=== PATIENT | male | born 1960 | race Caucasian/White ===

== ENCOUNTER → 2017-11-27 14:48 | Outpatient (CLI) | payer MEDICAID, SELFPAY ==
--- NOTE | 2017-11-27 14:53 | MR_ITS ---
MR shoulder RT wo con MRI right shoulder Ordering Physician: Brody Aguilera MD Patient Age: 57 years: Male HISTORY: ITS.REASON: INJURY OF RT SHOULDER Right shoulder pain 6 weeks limited range of motion. TECHNIQUE: Multiplanar multisequence imaging 1.5T MR COMPARISON :Plain films right shoulder 10/23/2017 FINDINGS Full-thickness infraspinatus tendon tear on, with over 12 mm mm tendon retraction. Fluid passes through rotator cuff tear defect into the subdeltoid subacromial bursa... Edema extends into the infraspinatus muscle , , I would note slight increased bone signal throughout cap of the greater tuberosity, along with some hypertrophic changes here.. Likely reflects mild reactive bone changes or degenerative signal change. This likely at or near the avulsed insertion of the infraspinatus tendon on the greater tuberosity Low signal irregularities & calcifications are along inferior aspect of the acromion & & distal clavicle-likely reflect combination of hypertrophic changes, dystrophic calcification & calcific tendinitis type features.-throughout this subacromial region.. The subacromial space remains generous & well-maintained. AC joint hypertrophy evident, mild encroaches upon the supraspinatus complex as it passes beneath this area through the the medial outlet.. Associated mild tendinopathy most evident at the anterior aspect of the supraspinatus towards anterior cerebral through this region.. Coronal image 13.q Subscapularis tendon. Mild tendinopathy at superior aspect of subscapularis tendon best seen on sagittal image 11. Biceps tendon I believe is abnormal.. Evident at superior aspect the bicipital groove were becomes mildly enlarged with increased interstitial signal. Tendinopathy with possible interstitial tear here. Sagittal image 5,-6-7 IMPRESSION: 1 Infraspinatus tendon tear with mild/moderate retraction. Edema extends throughout the infraspinatus muscle question some mild bone edema at the cap of the greater tuberosity as well. . 2.. Fluid passes through full-thickness infraspinatus rotator cuff defect, into the subdeltoid subacromial bursa. Minimal joint effusion noted 3. Biceps tendinopathy. Possible interstitial tear just superior the bicipital groove 4. Mild Subscapularis tendinopathy.\ 5. Mild/moderate AC joint hypertrophy which encroaches upon the supraspinatus as it passes beneath this area & through medial outlet. Mild supraspinatus tendinopathy anteriorly in this region 6... Calcific tendinitis & along with Osseous irregularities,, minimal hypertrophic bone noted along the inferior aspect acromion and distal clavicle..
== END ==
PROVIDERS: Family Provider Family Medicine; PCP Family Medicine; Visit Provider Family Medicine
DX: S49.91XD Unspecified injury of right shoulder and upper arm, subsequent encounter (principal)
CPT/HCPCS: 73221

== ENCOUNTER → 2017-12-29 07:14 | Outpatient (CLI) | payer MEDICAID, SELFPAY ==
--- NOTE | 2017-12-29 07:36 | XR_ITS ---
XR chest 2V HISTORY: ITS.REASON: HTN ORDERING PHYSICIAN: Torres Armenta PATIENT AGE: 57 years COMPARISON: 09/11/2016 FINDINGS: The cardiomediastinal silhouette and pulmonary vascularity are within normal limits. The lungs are clear without infiltrates, suspicious nodules, or pleural effusions. There has been a prior left shoulder replacement No acute bony abnormalities. IMPRESSION: Negative chest, no acute finding
[2017-12-29 08:02] LABS: Basophils # 0.1 K/mm3 (0-0.2); Basophils % 0.7 % (0.1-2.0); Eosinophils # 0.4 K/mm3 (0.0-0.4); Eosinophils % 4.2 % (0.1-12.0); Hematocrit 47.8 % (42.0-52.0); Hemoglobin 15.7 g/dL (14.1-18.0); Lymphocytes # 2.5 K/mm3 (0.7-4.5); Lymphocytes % 28.8 K/mm3 (10-50); Mean Corpuscular HGB Conc 32.9 g/dL (31.8-35.4); Mean Corpuscular Hemoglobin 27.4 pg (27.0-31.2); Mean Corpuscular Volume 83.3 fl (80-94); Mean Platelet Volume 6.7 fl (7.4-10.4); Monocytes # 0.6 K/mm3 (0.1-1.0); Monocytes % 6.8 % (1.7-9.3); Neutrophils # 5.1 K/mm3 (1.8-7.8); Neutrophils % 59.5 % (37.0-80.0); Platelet Count 299 K/mm3 (142-424); Red Blood Count 5.74 M/mm3 (4.60-6.20); Red Cell Distribution Width 12.7 % (11.5-17.5); White Blood Count 8.5 K/mm3 (4.8-10.8)
[2017-12-29 09:51] LABS: Alanine Aminotransferase 61 U/L (12-78); Albumin Level 3.8 gm/dL (3.4-5.0); Albumin/Globulin Ratio 1.1 (1.1-1.8); Alkaline Phosphatase 135 U/L (46-116); Anion Gap 11.9 mEq/L (5-15); Aspartate Amino Transferase 26 U/L (15-37); Bilirubin,Total 0.4 mg/dL (0.2-1.0); Blood Urea Nitrogen 19 mg/dL (7-18); Calcium 9.1 mg/dL (8.5-10.1); Carbon Dioxide 31 mmol/L (21.0-32.0); Chloride 107 mmol/L (98-107); Creatinine,Serum 0.88 mg/dL (0.70-1.30); Estimated Glomerular Filt Rate 89 ml/min (>60); GFR (African American) 108 ML/MIN (>60); Globulin 3.4 gm/dl (1.3-3.2); Glucose 101 mg/dL (74-106); Potassium 4.9 mmoL/L (3.5-5.1); Sodium 145 mmol/L (136-145); Total Protein,Serum 7.2 gm/dL (6.4-8.2)
== END ==
PROVIDERS: PCP Family Medicine; Visit Provider Orthopaedic Surgery
DX: S49.91XD Unspecified injury of right shoulder and upper arm, subsequent encounter (principal); Z01.812 Encounter for preprocedural laboratory examination
CPT/HCPCS: 36415; 71046; 80053; 85025; 93005

== ENCOUNTER 2018-04-04 13:00 | Outpatient (RCR) | payer MEDICAID, SELFPAY | END 2018-04-26 08:51 | disposition home or self-care (01) | LOC: PT 13:00 | PROVIDERS: Family Provider Family Medicine; PCP Family Medicine; Visit Provider Orthopaedic Surgery | DX: M75.122 Complete rotator cuff tear or rupture of left shoulder, not specified as traumatic (principal) | CPT/HCPCS: 97110; 97140 ==

== ENCOUNTER 2019-02-12 10:00 | Outpatient (RCR) | payer MEDICAID, SELFPAY ==
--- NOTE | 2019-01-17 11:24 | HMH.PTOPEV ---
PT Outpatient Evaluation Rehab PT Outpatient Evaluation Start: 01/17/19 10:55 Freq: Status: Active Protocol: Document 01/17/19 10:55 SANTOSH (Rec: 01/17/19 11:23 RIPSERJORDAN [id number]) Electronically Signed By Jatinder Head, TANK 01/17/19 10:55 Outpatient Therapy Subjective History Subjective History Pt. is a 58 year old male who presents to outpatient PT with complaints of acute cervical/thoracic and BUE pain since 12/23/18 after slipping, falling, and hitting the right side of his head/neck on his tractor's back tire. Pt. reports sharp shooting pain down to his RUE wrist and pain to mid humerus of his LUE. Pt. reports his pain flips on and off like a light switch, but gets worse when he slouches in his bar chair. Recent diagnostic imaging positive for multilevel cervical spondylosis, reversal of cervical lordosis, and no acute fracture(cervical scan), and an old fracture versus nuchal ligament calcification at C7(thoracic scan). Pt. denies having recent injections. PMH includes B carpal tunnel, B shoulder RCRs , and a reverse total shoulder replacment L. See chart for current medication list. Chief Complaint Pain Stiff Symptom Type Sharp Shooting Symptoms Relieved By Heat Ice OTC Meds Prescription Meds Symptoms Aggravated By Sitting Bending/Stooping Twisting Prior Functional Limitations None Current Functional Limitations Housework Dressing Desk Work/Reading Driving Sleeping Recreation Activity Bending/Stooping Symptom Description
== END 2019-02-19 11:38 | disposition home or self-care (01) ==
LOC: PT 10:00
PROVIDERS: Visit Provider Family Medicine
DX: M54.2 Cervicalgia (principal)
CPT/HCPCS: 97010; 97012; 97014; 97110; 97140; 97163; G0283

== ENCOUNTER → 2019-02-26 16:04 | Outpatient (CLI) | payer MEDICAID, SELFPAY ==
--- NOTE | 2019-02-26 16:07 | XR_ITS ---
XR chest 2V HISTORY: ITS.REASON: PERSISTENT COUGH ORDERING PHYSICIAN: Brody Aguilera MD PATIENT AGE: 58 years COMPARISON: 12/29/2017 FINDINGS: The cardiomediastinal silhouette and pulmonary vascularity are within normal limits. The lungs are clear without infiltrates, suspicious nodules, or pleural effusions. No acute bony abnormalities. There is an old left sixth rib fracture. Left shoulder prosthesis is present IMPRESSION: No acute finding
== END ==
PROVIDERS: PCP Family Medicine; Visit Provider Family Medicine
DX: R05 Cough (principal)
CPT/HCPCS: 71046

== ENCOUNTER → 2019-10-25 07:31 | Outpatient (CLI) | payer MEDICAID, SELFPAY ==
[2019-10-25 13:49] LABS: Chol/HDL Ratio 7.9 (1-3.5); Cholesterol 206 mg/dL (140-200); HDL Cholesterol 26 mg/dL (27-67); LDL Cholesterol 116 mg/dL (0-130); Triglycerides 318 mg/dL (30-200); VLDL Cholesterol 64 mg/dL (0-40)
[2019-10-28 08:17] LABS: Alanine Aminotransferase 39 U/L (12-78); Albumin Level 4.1 gm/dL (3.4-5.0); Alkaline Phosphatase 77 U/L (46-116); Aspartate Amino Transferase 34 U/L (15-37); Bilirubin,Direct 0.1 mg/dL (0.0-0.2); Bilirubin,Indirect 0.3 mg/dL (0.0-0.9); Bilirubin,Total 0.4 mg/dL (0.2-1.0)
== END ==
PROVIDERS: Urology; Visit Provider Nurse Practitioner Family
DX: E78.5 Hyperlipidemia, unspecified (principal); I11.9 Hypertensive heart disease without heart failure; E78.1 Pure hyperglyceridemia
CPT/HCPCS: 36415; 80061; 80076

== ENCOUNTER → 2020-02-10 09:37 | Outpatient (CLI) | payer MEDICARE, OTHER, SELFPAY ==
[2020-02-10 14:14] LABS: Creatine Kinase 685 U/L (55-170)
== END ==
PROVIDERS: Visit Provider Internal Medicine
DX: I11.9 Hypertensive heart disease without heart failure (principal); E78.5 Hyperlipidemia, unspecified
CPT/HCPCS: 36415; 82550

== ENCOUNTER → 2020-02-19 08:25 | Outpatient (CLI) | payer MEDICARE, SELFPAY ==
[2020-02-19 10:33] LABS: Alanine Aminotransferase 43 U/L (12-78); Albumin Level 4.1 g/dl (3.5-5.0); Alkaline Phosphatase 66 U/L (38-126); Aspartate Amino Transferase 39 U/L (17-59); Bilirubin,Direct 0.2 mg/dl (0.0-0.4); Bilirubin,Indirect 0.2 mg/dL (0.0-0.9); Bilirubin,Total 0.4 mg/dl (0.2-1.3); Bilirubin,Unconjugated 0.3 mg/dL (0.0-1.1); Chol/HDL Ratio 8.3 (1-3.5); Cholesterol 223 mg/dl (140-200); HDL Cholesterol 27 mg/dl (40-60); Total Protein,Serum 6.7 g/dl (6.3-8.2); Triglycerides 367 mg/dl (30-150); VLDL Cholesterol 73 mg/dL (0-40)
[2020-02-19 10:34] LABS: Creatine Kinase 594 U/L (55-170)
[2020-02-19 10:44] LABS: Direct LDL Cholesterol 105.53 mg/dL (100-129)
== END ==
PROVIDERS: Internal Medicine; Visit Provider Physician Assistant
DX: E78.5 Hyperlipidemia, unspecified (principal); I11.9 Hypertensive heart disease without heart failure
CPT/HCPCS: 36415; 80061; 80076; 82550

== ENCOUNTER → 2020-03-10 08:03 | Outpatient (CLI) | payer MEDICARE, SELFPAY ==
[2020-03-10 10:10] LABS: Creatine Kinase 640 U/L (55-170)
== END ==
PROVIDERS: Visit Provider Physician Assistant
DX: M62.82 Rhabdomyolysis (principal)
CPT/HCPCS: 36415; 82550

== ENCOUNTER → 2020-03-16 12:05 | Outpatient (CLI) | payer MEDICARE, SELFPAY ==
--- NOTE | 2020-03-16 12:11 | CA_ITS ---
APPROVED REPORT EXAM: Comprehensive 2D, Doppler, and color-flow Echocardiogram Highway Administrative Engineer: Tabitha Crain, RT(R) Ht: 5 ft 9 in Wt: 227lbs BSA: 2.18 BP: 113/79 mmHg Indications: ex smoker, edema, HTN, Hyperlipidemia, CAD, GERD 2D Dimensions LVOT 1.81 cm (M/F) 1.5-2.5 M-Mode Dimensions RVDd 1.85 cm (0.9-2.6) LVDd 4.34 cm (3.5-5.7) LVDs 3.10 cm (3.5-5.7) IVSd 1.09 cm (0.6-1.1) PWd 0.93 cm (0.6-1.1) EF (Teich) 55.40% FS 28.60% EDV (Teich) 84.90 mL ESV (Teich) 37.90 mL LV Diastology E/A Ratio 1.14 Mitral Valve MV A Velocity 76.00 (40-130 cm/s) Left Ventricle Left atrium is mildly enlarged, left ventricle is normal size, mild concentric left ventricular hypertrophy, visually estimated ejection fraction 30%, there is marked hypokinesis involving mid to distal septum, anterior, anterior apical and apical wall. Grade 1 diastolic dysfunction seen without tissue Doppler evidence of raise left atrial pressure. Right Ventricle Right atrium and right ventricle are normal size and contractility. Aortic Valve Aortic valve is minimally thickened and fibrosed, leaflet continue to display good mobility, there is no aortic stenosis or aortic insufficiency. Mitral Valve Mitral valve is minimally thickened, there is mild mitral regurgitation. Tricuspid Valve Tricuspid valve is grossly normal, there is mild tricuspid regurgitation, tricuspid regurgitation jet velocity is inadequate for calculation of the right ventricular systolic pressure. Pulmonic Valve Pulmonic valve is minimally fibrosed, there is no pulmonic stenosis, there is mild pulmonic insufficiency. Great Vessels Aortic root is normal size. Pericardium No significant pericardial effusion noted. Conclusion 1. Mildly enlarged left atrium, normal left ventricular size, mild concentric left ventricular hypertrophy, visually estimated ejection fraction 30%, with multiple segmental wall motion abnormality described above, grade 1 diastolic dysfunction seen without tissue Doppler evidence of raise left atrial pressure. 2. Mild mitral and tricuspid regurgitation. 3. No significant pericardial effusion noted. Electronically signed by : Dar Morales, 03/16/2020 20:48:21
--- NOTE | 2020-03-16 12:44 | XR_ITS ---
PROCEDURE: XR CHEST 2V CLINICAL HISTORY: dyspnea COMPARISON: CXR CHEST(2 VIEWS-NOT PORTABLE) from 09/11/2016 CXR2V XR chest 2V from 12/29/2017 CXR2V XR chest 2V from 02/26/2019 FINDINGS: The cardiomediastinal silhouette and pulmonary vascularity are within normal limits. The lungs are clear without infiltrates, suspicious nodules, or pleural effusions. Left shoulder prosthesis remains in place. IMPRESSION: No acute findings. Dictated by: Nakul Colvin MD 03/16/2020 13:48 Electronically signed by Nakul Colvin MD in [facility] 03/16/2020 13:48
[2020-03-16 12:47] LABS: Basophils # 0.1 K/mm3 (0-0.2); Basophils % 1.3 % (0.1-2.0); Eosinophils # 0.4 K/mm3 (0.0-0.4); Eosinophils % 4.6 % (0.1-12.0); Hematocrit 48.1 % (42.0-52.0); Hemoglobin 15.8 g/dL (14.1-18.0); Lymphocytes # 2.5 K/mm3 (0.7-4.5); Lymphocytes % 27.6 % (10-50); Mean Corpuscular Hemoglobin 28.3 pg (27.0-31.2); Mean Corpuscular Volume 85.8 fl (80-94); Mean Platelet Volume 7.2 fl (7.4-10.4); Monocytes # 0.6 K/mm3 (0.1-1.0); Monocytes % 6.8 % (1.7-9.3); Neutrophils # 5.4 K/mm3 (1.8-7.8); Neutrophils % 59.8 % (37.0-80.0); Platelet Count 281 K/mm3 (142-424); Red Cell Distribution Width 13.3 % (11.5-17.5)
[2020-03-16 13:42] LABS: C-Reactive Protein 3.9 mg/L (0-4)
[2020-03-16 13:48] LABS: NT Pro Brain Natriuretic Pep. 155 pg/mL (0-125)
[2020-03-16 14:05] LABS: Erythrocyte Sedimentation Rate 5 mm/hr (0-20)
[2020-03-16 14:09] LABS: Prostate Specific Ag Screen 1.1 ng/ml (0.0-4.0)
== END ==
PROVIDERS: PCP Family Medicine; Visit Provider Internal Medicine
DX: E78.5 Hyperlipidemia, unspecified (principal); I11.9 Hypertensive heart disease without heart failure; M62.82 Rhabdomyolysis; R06.00 Dyspnea, unspecified; Z12.5 Encounter for screening for malignant neoplasm of prostate
CPT/HCPCS: 36415; 71046; 83880; 85025; 85651; 86140; 93306; G0103

== ENCOUNTER → 2020-03-18 10:37 | Day surgery (SDC) | payer MEDICARE, SELFPAY ==
[2020-03-18] VITALS (12 sets, daily range): BP systolic 107–159; BP diastolic 63–93; PULSE 57–90; RESP 14–20; TEMP 36.8; O2SAT 90–97; BMI 34.4
--- NOTE | 2020-03-18 | IR_ITS ---
APPROVED REPORT Patient Location: Outpatient Tube Coater: WILL Jean RT (R) PROCEDURES Left heart catheterization Left ventriculogram Selective coronary angiogram INDICATION Abnormal high risk echocardiogram, New onset systolic just of heart failure ejection fraction 30%, Angina pectoris/chest pain Informed consent was obtained prior to the procedure. COMPLICATIONS none Estimated Blood Loss: less than 10 mls TECHNIQUE One percent lidocaine used to anesthetize the right anterior aspect of the wrist. The right radial artery was accessed via the Seldinger technique. A 6 Anguillan sheath was placed in the right radial artery. 2.5 mg of verapamil, 800 mcg of nitroglycerin, 1mg Lidocaine and 5000 U Heparin were given through the arterial sheath. The trap catheter and 6 Anguillan JL 3.5 guide catheter also used to perform left heart catheterization, left ventriculogram and selective coronary angiogram. At the end of the procedure the sheath was removed good hemostasis was achieved using Traclet band, patient was transferred to the postop holding area in stable condition. ANGIOGRAPHIC RESULTS The left main artery Normal The left anterior descending artery Has proximal 10% [id number] stenoses The circumflex artery Large dominant normal The right coronary artery Normal The RIOS ventriculogram reveals Normal 65% The left ventricular end-diastolic pressure 15 to 20 mmHg IMPRESSION Mild [id number] coronary disease in the proximal LAD Normal ejection fraction Mildly elevated LVEDP consistent with diastolic dysfunction False positive echocardiogram likely due to technical factors PLAN 1. Medical management 2. Treat diastolic dysfunction Electronically signed by : Sandoval Matias, 03/18/2020 11:59:28
[2020-03-18 10:45] LABS: Troponin I < 0.01 ng/ml (0.00-0.034)
== END ==
LOC: LAB 10:37 → CATHLAB 10:38
PROVIDERS: PCP Family Medicine; Visit Provider Internal Medicine
DX: E78.5 Hyperlipidemia, unspecified (principal); I11.0 Hypertensive heart disease with heart failure; M62.82 Rhabdomyolysis; R74.8 Abnormal levels of other serum enzymes; I50.21 Acute systolic (congestive) heart failure; I25.118 Atherosclerotic heart disease of native coronary artery with other forms of angina pectoris; Z88.0 Allergy status to penicillin; Z88.1 Allergy status to other antibiotic agents; Z88.2 Allergy status to sulfonamides; Z88.8 Allergy status to other drugs, medicaments and biological substances; Z87.891 Personal history of nicotine dependence
CPT/HCPCS: 36415; 84484; 93458; 99152; C1725; C1769; J1644; Q9967

== ENCOUNTER → 2020-05-18 14:36 | Outpatient (CLI) | payer MEDICARE, SELFPAY ==
[2020-05-20 13:30] LABS: Covid-19 Nasal PCR Sendout Lex Not Detected
== END ==
PROVIDERS: Visit Provider Family Medicine
DX: Z03.818 Encounter for observation for suspected exposure to other biological agents ruled out (principal); Z11.59 Encounter for screening for other viral diseases
CPT/HCPCS: U0004

== ENCOUNTER → 2020-12-25 09:25 | Outpatient (CLI) | payer MEDICARE, SELFPAY ==
[2020-12-25 13:48] LABS: Chloride 105 mmol/L (98-107); Potassium 4.8 mmoL/L (3.5-5.1); Sodium 140 mmol/L (136-145)
[2020-12-25 13:49] LABS: Basophils # 0.1 K/mm3 (0-0.2); Basophils % 1.4 % (0.1-2.0); Eosinophils # 0.3 K/mm3 (0.0-0.4); Eosinophils % 3.7 % (0.1-12.0); Lymphocytes # 2.4 K/mm3 (0.7-4.5); Lymphocytes % 27.7 % (10-50); Mean Corpuscular HGB Conc 32.6 g/dL (31.8-35.4); Mean Corpuscular Hemoglobin 27.9 pg (27.0-31.2); Mean Corpuscular Volume 85.4 fl (80-94); Mean Platelet Volume 7.4 fl (7.4-10.4); Monocytes # 0.4 K/mm3 (0.1-1.0); Monocytes % 4.8 % (1.7-9.3); Neutrophils # 5.3 K/mm3 (1.8-7.8); Neutrophils % 62.4 % (37.0-80.0); Platelet Count 223 K/mm3 (142-424); Red Blood Count 5.74 M/mm3 (4.60-6.20); Red Cell Distribution Width 13.4 % (11.5-17.5); White Blood Count 8.6 K/mm3 (4.8-10.8)
[2020-12-25 13:50] LABS: Blood Urea Nitrogen 25 mg/dl (9-20); Estimated Glomerular Filt Rate 86 ml/min (>60); GFR (African American) 104 ML/MIN (>60)
[2020-12-25 13:51] LABS: Alanine Aminotransferase 42 U/L (12-78); Albumin Level 4.5 g/dl (3.5-5.0); Albumin/Globulin Ratio 1.5 (1.1-1.8); Alkaline Phosphatase 87 U/L (38-126); Anion Gap 10.8 mEq/L (5-15); Aspartate Amino Transferase 38 U/L (17-59); Bilirubin,Total 0.6 mg/dl (0.2-1.3); Calcium 9.7 mg/dl (8.4-10.2); Carbon Dioxide 29 mmol/L (22.0-30.0); Chol/HDL Ratio 8.2 (1-3.5); Cholesterol 221 mg/dl (140-200); Creatine Kinase 503 U/L (55-170); Glucose 108 mg/dl (74-100); HDL Cholesterol 27 mg/dl (40-60); Total Protein,Serum 7.5 g/dl (6.3-8.2)
[2020-12-25 13:59] LABS: Triglycerides 422 mg/dl (30-150)
[2020-12-25 14:05] LABS: Direct LDL Cholesterol 88.86 mg/dL (100-129)
[2020-12-25 14:42] LABS: Thyroid Stimulating Hormone 0.42 uIU/mL (0.465-4.68)
[2020-12-25 16:15] LABS: Prostate Specific Ag Screen 0.7 ng/ml (0.0-4.0)
== END ==
PROVIDERS: Visit Provider Family Medicine
DX: I10 Essential (primary) hypertension (principal); E78.5 Hyperlipidemia, unspecified; R74.8 Abnormal levels of other serum enzymes; Z12.5 Encounter for screening for malignant neoplasm of prostate
CPT/HCPCS: 36415; 80053; 80061; 82550; 84443; 85025; G0103

== ENCOUNTER → 2020-12-28 09:13 | Outpatient (CLI) | payer MEDICARE, SELFPAY ==
[2020-12-28 14:04] LABS: Uric Acid 8.9 mg/dl (3.5-8.5)
[2020-12-28 15:10] LABS: Erythrocyte Sedimentation Rate 10 mm/hr (0-20)
[2020-12-29 19:34] LABS: RA Latex Turbid. 10.5 IU/mL (0.0-13.9)
[2020-12-30 22:07] LABS: Antinuclear Antibodies, IFA Positive (.)
== END ==
PROVIDERS: Visit Provider Family Medicine
DX: M79.10 Myalgia, unspecified site (principal); R74.8 Abnormal levels of other serum enzymes
CPT/HCPCS: 36415; 84550; 85651; 86038; 86140; 86431

== ENCOUNTER → 2021-01-01 16:33 | Outpatient (CLI) | payer MEDICARE, SELFPAY ==
--- NOTE | 2021-01-01 16:39 | XR_ITS ---
PROCEDURE: XR CERVICAL SPINE 5V CLINICAL INDICATION: CERVICAL RADICULOPATHY COMPARISON: CT SPCERVWO CT cervical spine wo con from 12/24/2018 FINDINGS: There is straightening of the normal curvature suggesting muscle spasm. C1 through C7 appear intact. There are small ossifications posterior to the spinous processes of C6 and C7 likely representing calcifications or ossifications within the nuchal ligament usually secondary to multiple repeated minor trauma. There is mild disc space narrowing at the C5-6 level and mild to moderate disc space narrowing at C6-7. Oblique films show prominent neural foraminal narrowing bilaterally at C6-7 level secondary to spurring of the uncinate joints. There is mild neural foraminal narrowing bilaterally at the C5-6 level for the same reason. The prevertebral soft tissues are normal and the odontoid is normal. There is a left total shoulder prosthesis noted. IMPRESSION: The moderate degenerate disc disease C5-6 and C6-7 with prominent neural foraminal narrowing bilaterally at C6-7 and mild neural foraminal narrowing bilaterally at C5-6 Dictated by: Dr. Jamarcus Polk MD 01/01/2021 17:08 Dr. Jamarcus Polk MD in [place] 01/01/2021 17:08
== END ==
PROVIDERS: PCP Family Medicine; Visit Provider Family Medicine
DX: M54.12 Radiculopathy, cervical region (principal)
CPT/HCPCS: 72050

== ENCOUNTER → 2021-01-11 12:46 | Outpatient (CLI) | payer MEDICARE, SELFPAY ==
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
== END ==
PROVIDERS: PCP Family Medicine; Visit Provider Family Medicine
DX: M47.22 Other spondylosis with radiculopathy, cervical region (principal)
CPT/HCPCS: 72141; 76376

== ENCOUNTER 2021-02-22 09:00 | Outpatient (RCR) | payer MEDICARE, SELFPAY | END 2021-03-22 13:47 | disposition home or self-care (01) | LOC: PT.CARL 09:00 | PROVIDERS: PCP Family Medicine; Visit Provider Neurological Surgery | DX: M54.2 Cervicalgia (principal) | CPT/HCPCS: 97110; 97163 ==

== ENCOUNTER 2021-03-20 13:28 | Emergency (ER) | payer MEDICARE, SELFPAY ==
[2021-03-20 13:29] VITALS: BP 170/93; PULSE 70; RESP 18; TEMP 36.7; O2SAT 98; BMI 31.0
--- NOTE | 2021-03-20 14:28 | CT_ITS ---
PROCEDURE INFORMATION: Exam: CT Abdomen And Pelvis With Contrast Exam date and time: 03/20/2021 2:28 PM Age: 60 years old Clinical indication: Abdominal pain; Patient HX: Generalized abd pain, n/v TECHNIQUE: Imaging protocol: Computed tomography of the abdomen and pelvis with contrast. Radiation optimization: All CT scans at this facility use at least one of these dose optimization techniques: automated exposure control; mA and/or kV adjustment per patient size (includes targeted exams where dose is matched to clinical indication); or iterative reconstruction. Contrast material: ISOVUE; Contrast volume: 75 ml; Contrast route: IV; COMPARISON: RUQ US RUQ-(ABD LTD)1ORGAN/QUAD/FU 04/02/2014 10:55 AM FINDINGS: Lungs: Atelectatic changes noted within the lung bases. Liver: Normal. No mass. Gallbladder and bile ducts: 6 mm calcification is present within the common bile duct. There has been a cholecystectomy. Pancreas: There is mild enlargement of the pancreas with peripancreatic fat stranding. No pancreatic ductal dilatation. Spleen: The spleen demonstrates punctate calcifications, consistent with remote granulomatous organism exposure. Adrenal glands: Normal. No mass. Kidneys and ureters: Normal. No hydronephrosis. Stomach and bowel: Unremarkable. No obstruction. No mucosal thickening. Appendix: No evidence of appendicitis. Intraperitoneal space: Normal. No significant fluid collection. Vasculature: The vasculature demonstrates diffuse mild atherosclerotic calcification. The vasculature demonstrates diffuse mild atherosclerotic calcification. Lymph nodes: Unremarkable. No enlarged lymph nodes. Urinary bladder: Unremarkable as visualized. Reproductive: The prostate demonstrates mild nonspecific enlargement. The seminal vesicles are normal. Bones/joints: Unremarkable. No acute fracture. Soft tissues: Bilateral fat filled inguinal hernias. IMPRESSION: 1. 6 mm calcification is present within the common bile duct. Follow-up MRCP may be of further benefit, as clinically warranted.The lumbar spine demonstrates mild degenerative changes at multiple levels. 2. There is mild enlargement of the pancreas with peripancreatic fat stranding. Findings may be consistent with early pancreatitis. Clinical correlation is needed. 3. Bilateral fat filled inguinal hernias.
[2021-03-20 14:36] LABS: Basophils # 0.1 K/mm3 (0-0.2); Basophils % 0.4 % (0.1-2.0); Eosinophils % 0.3 % (0.1-12.0); Hematocrit 48.5 % (42.0-52.0); Hemoglobin 16.1 g/dL (14.1-18.0); Lymphocytes # 1.2 K/mm3 (0.7-4.5); Lymphocytes % 8.2 % (10-50); Mean Corpuscular HGB Conc 33.2 g/dL (31.8-35.4); Mean Corpuscular Hemoglobin 28.6 pg (27.0-31.2); Mean Corpuscular Volume 86.1 fl (80-94); Mean Platelet Volume 7.3 fl (7.4-10.4); Monocytes # 0.4 K/mm3 (0.1-1.0); Monocytes % 2.5 % (1.7-9.3); Neutrophils # 13.2 K/mm3 (1.8-7.8); Neutrophils % 88.5 % (37.0-80.0); Platelet Count 305 K/mm3 (142-424); Red Blood Count 5.63 M/mm3 (4.60-6.20); Red Cell Distribution Width 14.3 % (11.5-17.5); White Blood Count 14.9 K/mm3 (4.8-10.8)
[2021-03-20 14:37] LABS: MANUAL DIFFERENTIAL MANUAL DIFFERENTIAL (MANUAL DIFF)
[2021-03-20 14:38] LABS: Chloride 101 mmol/L (98-107); Sodium 137 mmol/L (136-145)
[2021-03-20 14:39] VITALS: BP 132/81; PULSE 66; O2SAT 95
[2021-03-20 14:41] LABS: Alanine Aminotransferase 46 U/L (12-78); Alkaline Phosphatase 134 U/L (38-126); Aspartate Amino Transferase 47 U/L (17-59); Bilirubin,Total 0.7 mg/dl (0.2-1.3); Blood Urea Nitrogen 24 mg/dl (9-20); Calcium 9.3 mg/dl (8.4-10.2); Carbon Dioxide 26 mmol/L (22.0-30.0); Creatine Kinase 912 U/L (55-170); Creatinine Clearance Estimated 132 mL/min (50-200); Estimated Glomerular Filt Rate 99 ml/min (>60); GFR (African American) 119 ML/MIN (>60); Glucose 180 mg/dl (74-100)
[2021-03-20 14:42] LABS: Albumin Level 4.9 g/dl (3.5-5.0); Albumin/Globulin Ratio 1.7 (1.1-1.8); Globulin 2.9 g/dL (1.3-3.2); Total Protein,Serum 7.8 g/dl (6.3-8.2)
--- NOTE | 2021-03-20 14:49 | PC.NURSE ---
Pt to rad.
[2021-03-20 14:57] LABS: Lymphocytes % 8 % (10-50); Monocytes % 9 % (2-9); Neutrophils % 82 % (42-76); Platelet Estimate Normal; RBC Morphology Normal; Total Cells Counted 100
--- NOTE | 2021-03-20 15:10 | PC.NURSE ---
MD aware that pt is complaining of more pain.
--- NOTE | 2021-03-20 15:25 | PC.NURSE ---
Dr Ritter speaking with [facility].
--- NOTE | 2021-03-20 15:27 | HMH.EDGENADL ---
ED Disposition Clinical Impression: Common bile duct stone Acute pancreatitis Qualifiers: Pancreatitis type: biliary Acute pancreatitis complication: no infection or necrosis Qualified Code(s): K85.10 - Biliary acute pancreatitis without necrosis or infection Disposition: Xfer Short-Term Hosp Condition on Discharge: Fair Referrals: Brody Aguilera MD [Primary Care Provider] - Forms: Transfer Record - ED - Critical Care Critical Care Time: No Attestation: On 03/20/21, the high probability of a clinically significant, sudden or life threatening deterioration of the following system(s) required my full and direct attention, intervention and personal management. The time I documented below is in addition to time spent performing reported procedures but includes the following listed in this critical care notation. Medical Decision Making - Cheo Inquiry Pt receiving controlled substance: Yes Cheo was queried for this patient: Yes Risks and benefits of using a controlled substance: were not discussed with pt by me Vital Signs: 03/20/21 13:29 03/20/21 14:39 Temperature 98.1 F Temperature Source Oral Pulse Rate 66 Pulse Rate [Right] 70 Respiratory Rate 18 Blood Pressure 132/81 Blood Pressure [Right Arm] 170/93 H Blood Pressure Mean [Right Arm] 118 02 Sat by Pulse Oximetry 98 95 Oxygen Delivery Method Room Air - Lab Data Lab Results 03/20/21 13:17: WBC 14.9 H, RBC 5.63, Hgb 16.1, Hct 48.5, MCV 86.1, MCH 28.6, MCHC 33.2, RDW 14.3, Plt Count 305, MPV 7.3 L, Neut % (Auto) 88.5 H, Lymph % (Auto) 8.2 L, Faulk % (Auto) 2.5, Eos % (Auto) 0.3, Baso % (Auto) 0.4, Neut # (Auto) 13.2 H, Lymph # (Auto) 1.2, Faulk # (Auto) 0.4, Eos # (Auto) 0.0, Baso # (Auto) 0.1, Total Counted 100, Neutrophils % (Manual) 82 H, Band Neutrophils % 1.0, Lymphocytes % (Manual) 8 L, Monocytes % (Manual) 9, Platelet Estimate Normal, RBC Morphology Normal 03/20/21 13:17: Sodium 137, Potassium 5.0, Chloride 101, Carbon Dioxide 26, Anion Gap 15.0, BUN 24 H, Creatinine 0.80, Estimated Creat Clear 132, Estimated GFR 99, Est GFR ( Amer) 119, Glucose 180 H, Calcium 9.3, Total Bilirubin 0.7, AST 47, ALT 46, Alkaline Phosphatase 134 H, Total Creatine Kinase 912 H*, Total Protein 7.8, Albumin 4.9, Globulin 2.9, Albumin/Globulin Ratio 1.7, Amylase 7090 H*, Lipase 58963 H Result diagrams: 03/20/21 13:17 03/20/21 13:17 Orders (Tests/Meds): ED MEDICATIONS Generic Name Dose Route Start Last Admin Trade Name Freq PRN Reason Stop Dose Admin Lactated Ringer's 1,000 mls @ 500 mls/hr 03/20/21 17:00 03/20/21 17:28 Lactated Ringer's 1000 Ml Bag IV 03/20/21 18:59 500 mls/hr .Q2H MOUSTAPHA Administration Discontinued Medications Generic Name Dose Route Start Last Admin Trade Name Freq PRN Reason Stop Dose Admin Hydromorphone HCl 1 mg 03/20/21 15:34 03/20/21 15:37 Hydromorphone 2mg/Ml Syringe IV 03/20/21 15:35 1 mg ONCE ONE Administration Hydromorphone HCl 1 mg 03/20/21 17:28 03/20/21 17:29 Hydromorphone 2mg/Ml Syringe IV 03/20/21 17:29 1 mg ONCE ONE Administration Iopamidol 75 ml 03/20/21 15:10 03/20/21 15:11 Iopamidol-370 (76%);100ml Bottle IV 03/20/21 15:11 75 ml ONCE ONE Administration Morphine Sulfate 4 mg 03/20/21 14:45 03/20/21 14:48 Morphine 4mg/Ml Syringe IV 03/20/21 14:46 4 mg ONCE ONE Administration Ondansetron HCl 4 mg 03/20/21 14:45 03/20/21 14:47 Ondansetron 4mg/2ml Vial IV 03/20/21 14:46 4 mg ONCE ONE Administration Sodium Chloride 10 ml 03/20/21 15:10 03/20/21 15:11 Sodium Chloride 0.9% 10ml Syr (Rad Only) IV 03/20/21 15:11 10 ml ONCE ONE Administration - CT Data CT Scan: Abdomen, Pelvis Time Received: 15:[address] Reviewed: Yes: I discussed the CT results w/the radiologist, I have viewed the radiologist's interpretation Findings Narrative: PROCEDURE INFORMATION: Exam: CT Abdomen And Pelvis With Contrast Exam date and time:
--- NOTE | 2021-03-20 15:28 | PC.NURSE ---
lipase has been diluted twice per lab and is now running for the third time.
[2021-03-20 15:29] LABS: Amylase 7090 U/L (30-110)
--- NOTE | 2021-03-20 16:21 | PC.NURSE ---
calling [facility] at this time.
--- NOTE | 2021-03-20 16:24 | PC.NURSE ---
Dr Portillo to return call from [facility]
--- NOTE | 2021-03-20 16:37 | PC.NURSE ---
[facility] declining transfer calling [facility] at this time.
--- NOTE | 2021-03-20 16:58 | PC.NURSE ---
Pt accepted by [facility], no beds available at this time but per transfer center it shouldn't be long.
[2021-03-20 19:00] VITALS: BP 132/81; PULSE 66; RESP 18; TEMP 36.7; O2SAT 18
== END 2021-03-20 19:10 | disposition short-term general hospital (02) ==
PROVIDERS: Emergency Provider Emergency Medicine; PCP Family Medicine
DX: K85.10 Biliary acute pancreatitis without necrosis or infection (principal); K85.90 Acute pancreatitis without necrosis or infection, unspecified; I25.10 Atherosclerotic heart disease of native coronary artery without angina pectoris; E78.5 Hyperlipidemia, unspecified; I10 Essential (primary) hypertension; Z88.0 Allergy status to penicillin; Z79.899 Other long term (current) drug therapy; Z91.040 Latex allergy status; Z91.048 Other nonmedicinal substance allergy status
CPT/HCPCS: 74177; 80053; 82150; 82550; 83690; 85007; 85025; 96365; 96375; 99283; J2405; Q9967

== ENCOUNTER 2021-03-22 19:26 | Inpatient (IN) | payer MEDICARE, SELFPAY ==
[2021-03-22 19:37] VITALS: BP 139/85; PULSE 81; RESP 26; TEMP 36.8; O2SAT 96; BMI 31.0
--- NOTE | 2021-03-22 19:47 | CT_ITS ---
PROCEDURE INFORMATION: Exam: CT Abdomen And Pelvis With Contrast Exam date and time: 03/22/2021 7:47 PM Age: 60 years old Clinical indication: Nausea and vomiting; Localized; Right upper quadrant (ruq); Prior surgery; Surgery date: Post-operative (0-2 days); Surgery type: Patient had an ercp on Monday to remove a gall stone and dilate common bile duct at [facility]; Patient HX: Ruq abdominal pain after ercp at [facility] on Monday. ; Additional info: Ruq pain TECHNIQUE: Imaging protocol: Computed tomography of the abdomen and pelvis with contrast. Radiation optimization: All CT scans at this facility use at least one of these dose optimization techniques: automated exposure control; mA and/or kV adjustment per patient size (includes targeted exams where dose is matched to clinical indication); or iterative reconstruction. Contrast material: ISOVUE; Contrast volume: 75 ml; Contrast route: IV; COMPARISON: CT ABDOMEN PELVIS W CON 03/20/2021 2:56 PM FINDINGS: Lungs: Minor new bibasilar pleural fluid and atelectasis. Liver: Normal. No mass. Gallbladder and bile ducts: Cholecystectomy. Pancreas: Enlargement and ill definition of the pancreas with peripancreatic inflammatory changes most prominent at the level of the head and uncinate. No pancreatic necrosis. Spleen: Normal. No splenomegaly. Adrenal glands: Normal. No mass. Kidneys and ureters: Normal. No hydronephrosis. Stomach and bowel: Unremarkable. No obstruction. No mucosal thickening. Appendix: No evidence of appendicitis. Intraperitoneal space: Small volume of fluid in the abdomen and pelvis. Vasculature: Moderate atherosclerotic changes are seen within the abdominal aorta and branch vasculature without evidence of aneurysm. Lymph nodes: Unremarkable. No enlarged lymph nodes. Urinary bladder: Unremarkable as visualized. Reproductive: Unremarkable as visualized. Bones/joints: Unremarkable. No acute fracture. Soft tissues: Unremarkable. IMPRESSION: 1. Acute pancreatitis. 2. Small volume of abdominal and pelvic ascites. 3. Minor bibasilar pleural fluid and atelectasis.
[2021-03-22 19:56] LABS: Basophils # 0.1 K/mm3 (0-0.2); Basophils % 0.4 % (0.1-2.0); Eosinophils # 0.2 K/mm3 (0.0-0.4); Eosinophils % 1.3 % (0.1-12.0); Hematocrit 45.2 % (42.0-52.0); Hemoglobin 14.8 g/dL (14.1-18.0); Lymphocytes # 1.6 K/mm3 (0.7-4.5); Lymphocytes % 8.9 % (10-50); Mean Corpuscular HGB Conc 32.8 g/dL (31.8-35.4); Mean Corpuscular Hemoglobin 28.4 pg (27.0-31.2); Mean Corpuscular Volume 86.6 fl (80-94); Mean Platelet Volume 7.7 fl (7.4-10.4); Monocytes # 0.6 K/mm3 (0.1-1.0); Monocytes % 3.6 % (1.7-9.3); Neutrophils # 15.2 K/mm3 (1.8-7.8); Neutrophils % 85.8 % (37.0-80.0); Platelet Count 249 K/mm3 (142-424); Red Blood Count 5.23 M/mm3 (4.60-6.20); Red Cell Distribution Width 14.3 % (11.5-17.5); White Blood Count 17.7 K/mm3 (4.8-10.8)
[2021-03-22 19:59] LABS: MANUAL DIFFERENTIAL MANUAL DIFFERENTIAL (MANUAL DIFF)
[2021-03-22 20:05] LABS: Alanine Aminotransferase 127 U/L (12-78); Albumin/Globulin Ratio 1.4 (1.1-1.8); Alkaline Phosphatase 145 U/L (38-126); Amylase 427 U/L (30-110); Anion Gap 11.2 mEq/L (5-15); Aspartate Amino Transferase 71 U/L (17-59); Bilirubin,Total 1.5 mg/dl (0.2-1.3); Blood Urea Nitrogen 20 mg/dl (9-20); Calcium 8.6 mg/dl (8.4-10.2); Carbon Dioxide 27 mmol/L (22.0-30.0); Chloride 102 mmol/L (98-107); Creatinine Clearance Estimated 132 mL/min (50-200); Estimated Glomerular Filt Rate 99 ml/min (>60); GFR (African American) 119 ML/MIN (>60); Globulin 2.9 g/dL (1.3-3.2); Glucose 97 mg/dl (74-100); Lipase 332 U/L (23-300); Potassium 4.2 mmoL/L (3.5-5.1); Sodium 136 mmol/L (136-145); Total Protein,Serum 6.9 g/dl (6.3-8.2)
[2021-03-22 20:13] LABS: Lymphocytes % 5 % (10-50); Monocytes % 4 % (2-9); Neutrophils % 90 % (42-76); Total Cells Counted 100
[2021-03-22 20:14] LABS: Platelet Estimate Normal; RBC Morphology Normal
[2021-03-22 20:24] LABS: Procalcitonin 0.233 ng/mL (0.0-2.0)
--- NOTE | 2021-03-22 20:24 | HMH.EDNVD ---
ED Disposition Clinical Impression: SIRS (systemic inflammatory response syndrome) Acute pancreatitis Qualifiers: Pancreatitis type: unspecified pancreatitis type Acute pancreatitis complication: no infection or necrosis Qualified Code(s): K85.90 - Acute pancreatitis without necrosis or infection, unspecified Disposition: Admitted as Observation Condition on Discharge: Good - Critical Care Critical Care Time: No Attestation: On 03/22/21, the high probability of a clinically significant, sudden or life threatening deterioration of the following system(s) required my full and direct attention, intervention and personal management. The time I documented below is in addition to time spent performing reported procedures but includes the following listed in this critical care notation. Medical Decision Making - Medical Records Medical records reviewed: Yes: I reviewed the patient's medical records. - Cheo Inquiry Pt receiving controlled substance: No Vital Signs: 03/22/21 19:37 Temperature 98.2 F Temperature Source Oral Pulse Rate [Right] 81 Respiratory Rate 26 H Blood Pressure [Right Arm] 139/85 Blood Pressure Mean [Right Arm] 103 Blood Pressure Source [Right Arm] Automatic Cuff Blood Pressure Position [Right Arm] Sitting 02 Sat by Pulse Oximetry 96 Oxygen Delivery Method Room Air - Lab Data Lab results reviewed: Yes: I reviewed the patient's lab results. Lab Results 03/22/21 19:45: WBC 17.7 H, RBC 5.23, Hgb 14.8, Hct 45.2, MCV 86.6, MCH 28.4, MCHC 32.8, RDW 14.3, Plt Count 249, MPV 7.7, Neut % (Auto) 85.8 H, Lymph % (Auto) 8.9 L, [place] % (Auto) 3.6, Eos % (Auto) 1.3, Baso % (Auto) 0.4, Neut # (Auto) 15.2 H, Lymph # (Auto) 1.6, [place] # (Auto) 0.6, Eos # (Auto) 0.2, Baso # (Auto) 0.1, Total Counted 100, Neutrophils % (Manual) 90 H, Lymphocytes % (Manual) 5 L, Atypical Lymphs % 1.0, Monocytes % (Manual) 4, Platelet Estimate Normal, RBC Morphology Normal, ESR 16 03/22/21 19:45: Sodium 136, Potassium 4.2, Chloride 102, Carbon Dioxide 27, Anion Gap 11.2, BUN 20, Creatinine 0.80, Estimated Creat Clear 132, Estimated GFR 99, Est GFR ( Amer) 119, Glucose 97, Calcium 8.6, Total Bilirubin 1.5 H, AST 71 H D, ALT 127 H D, Alkaline Phosphatase 145 H, C-Reactive Protein 253.0 H, Total Protein 6.9, Albumin 4.0, Globulin 2.9, Albumin/Globulin Ratio 1.4, Amylase 427 H*, Lipase 332 H, Procalcitonin 0.233 Result diagrams: 03/22/21 19:45 03/22/21 19:45 Orders (Tests/Meds): ED MEDICATIONS Generic Name Dose Route Start Last Admin Trade Name Freq PRN Reason Stop Dose Admin Sodium Chloride 1,000 mls @ 999 mls/hr 03/22/21 20:00 03/22/21 19:55 Sod Chlor 0.9% 1000ml Bag IV 03/22/21 21:00 999 mls/hr .Q1H1M MOUSTAPHA Administration Sodium Chloride 8 ml 03/22/21 19:47 03/22/21 19:54 Sodium Chloride 0.9% 10ml Vial IV 04/21/21 19:46 8 ml NEEDED PRN Administration dilute pepcid Discontinued Medications Generic Name Dose Route Start Last Admin Trade Name Freq PRN Reason Stop Dose Admin Famotidine 20 mg 03/22/21 19:47 03/22/21 19:55 Famotidine 20mg/2ml Vial IV 03/22/21 19:48 20 mg ONCE ONE Administration Hydromorphone HCl 1 mg 03/22/21 20:43 03/22/21 20:46 Hydromorphone 2mg/Ml Syringe IV 03/22/21 20:44 1 mg ONCE ONE Administration Iopamidol 75 ml 03/22/21 20:27 03/22/21 20:28 Iopamidol-370 (76%);100ml Bottle IV 03/22/21 20:28 75 ml ONCE ONE Administration Ketorolac Tromethamine 30 mg 03/22/21 19:47 03/22/21 19:55 Ketorolac 30mg/Ml Vial IV 03/22/21 19:48 30 mg ONCE ONE Administration Methylprednisolone Sodium Succinate 125 mg 03/22/21 19:47 03/22/21 19:54 Methylprednisolone Sod Succ 125mg Vial IV 03/22/21 19:48 125 mg ONCE ONE Administration Metoclopramide HCl 10 mg 03/22/21 19:47 03/22/21 19:55 Metoclopramide Hcl 10mg/2ml Vial IVP 03/22/21 19:48 10 mg ONCE ONE Administration Promethazine HCl 25 mg 03/22/21 20:43 03/22/21 20:
[2021-03-22 20:37] LABS: Erythrocyte Sedimentation Rate 16 mm/hr (0-20)
[2021-03-22 23:02] VITALS: BP 166/86; PULSE 92; RESP 16; TEMP 37.1; O2SAT 94
--- NOTE | 2021-03-22 23:06 | PC.NURSE ---
patient up to floor via wheelchair.
[2021-03-22 23:26] VITALS: BP 156/86; PULSE 93; RESP 18; TEMP 37.1; O2SAT 94; BMI 32.3
[2021-03-23 04:00] VITALS: BP 137/81; PULSE 88; RESP 18; TEMP 36.6; O2SAT 94
--- NOTE | 2021-03-23 04:00 | PC.NURSE ---
Pt is resting in bed at this time.Has c/o pain to upper abdomen t/o shift. MD called for breakthrough pain. New orders received and carried out. Pt has ambulated x1 in hallway. No other concerns. Will continue to monitor.
[2021-03-23 05:52] VITALS: BMI 32.1
--- NOTE | 2021-03-23 07:26 | HMH.PHAVTE ---
[facility] Pharmacy VTE Monitoring - Patient Demographics Admission date: 03/22/21 Report Date: 03/23/21 Time: 07:26 Allergies/Adverse Reactions: Patient Allergies [id number]-Szt Reductase Inhibitor Allergy (Severe, Verified 03/24/20 11:05) rhabdo Sulfa (Sulfonamide Antibiotics) Allergy (Severe, Verified 03/24/20 11:05) K-[id number]-[id number]/THROAT Penicillins Allergy (Intermediate, Verified 03/24/20 11:05) I-ITCHING adhesive tape Allergy (Unknown, Verified 03/24/20 11:05) latex [LATEX] Allergy (Unknown, Verified 03/24/20 11:05) UNKOWN tramadol Allergy (Verified 03/24/20 11:05) Rash fenofibrate [From Tricor] Adverse Reaction (Verified 03/24/20 11:05) Height: 1.75 m Weight: 98.515 kg Patient Problems: Current Active Problems (Last Updated 08/13/19 @ 09:52 by Ophelia Teixeira RN) Acute pancreatitis (Acute) SIRS (systemic inflammatory response syndrome) (Acute) - VTE Risk Labs: VTE Related Lab Results Hgb 14.8 g/dL (14.1-18.0) 03/22/21 19:45 Hct 45.2 % (42.0-52.0) 03/22/21 19:45 Plt Count 249 K/mm3 (142-424) 03/22/21 19:45 BUN 20 mg/dl (9-20) 03/22/21 19:45 Creatinine 0.80 mg/dl (0.66-1.25) 03/22/21 19:45 Estimated Creat Clear 132 mL/min (50-200) 03/22/21 19:45 Was VTE Risk Assessment Performed: No VTE Risk Level: Low Risk - Prophylaxis VTE Prophylaxis Ordered?: Yes Types of VTE Prophylaxis: TEDS Knee High Location of Applied Device: Bilateral Lower Extremeties
[2021-03-23 07:40] LABS: Basophils % 0.1 % (0.1-2.0); Eosinophils # 0.1 K/mm3 (0.0-0.4); Eosinophils % 0.3 % (0.1-12.0); Hematocrit 40.2 % (42.0-52.0); Lymphocytes % 5.6 % (10-50); Mean Corpuscular HGB Conc 33.1 g/dL (31.8-35.4); Mean Corpuscular Hemoglobin 28.8 pg (27.0-31.2); Mean Corpuscular Volume 87.2 fl (80-94); Mean Platelet Volume 7.8 fl (7.4-10.4); Monocytes # 0.5 K/mm3 (0.1-1.0); Monocytes % 2.9 % (1.7-9.3); Neutrophils # 16.4 K/mm3 (1.8-7.8); Neutrophils % 91.1 % (37.0-80.0); Platelet Count 211 K/mm3 (142-424); Red Blood Count 4.61 M/mm3 (4.60-6.20); Red Cell Distribution Width 14.2 % (11.5-17.5)
[2021-03-23 07:45] LABS: Hemoglobin 13.3 g/dL (14.1-18.0); MANUAL DIFFERENTIAL MANUAL DIFFERENTIAL (MANUAL DIFF)
[2021-03-23 07:56] LABS: Alanine Aminotransferase 93 U/L (12-78); Albumin Level 3.7 g/dl (3.5-5.0); Albumin/Globulin Ratio 1.4 (1.1-1.8); Alkaline Phosphatase 130 U/L (38-126); Anion Gap 10.6 mEq/L (5-15); Aspartate Amino Transferase 51 U/L (17-59); Bilirubin,Total 0.8 mg/dl (0.2-1.3); Blood Urea Nitrogen 20 mg/dl (9-20); Calcium 8.2 mg/dl (8.4-10.2); Carbon Dioxide 24 mmol/L (22.0-30.0); Chloride 105 mmol/L (98-107); Creatinine Clearance Estimated 156 mL/min (50-200); Estimated Glomerular Filt Rate 115 ml/min (>60); GFR (African American) 139 ML/MIN (>60); Globulin 2.7 g/dL (1.3-3.2); Glucose 120 mg/dl (74-100); Lipase 172 U/L (23-300); Potassium 4.6 mmoL/L (3.5-5.1); Sodium 135 mmol/L (136-145); Total Protein,Serum 6.4 g/dl (6.3-8.2)
[2021-03-23 08:00] VITALS: BP 150/83; PULSE 87; RESP 22; TEMP 37; O2SAT 96
--- NOTE | 2021-03-23 09:21 | HMH.HP ---
*Admission Date: 03/22/21 <Adele Escobar - 03/23/21 09:52> *Chief complaint: Abdominal pain <Adele Escobar - 03/23/21 09:52> *History of present illness: Mr. Sullivan is a 60-year-old male with a history of gallstone pancreatitis, chronic neck/shoulder pain, hyperglycemia, hypertension, hyperlipidemia, varicose veins, GERD, left rotator cuff tear, and presbycusis with hearing aids who presented to [facility] emergency room for evaluation with acute abdominal pain. He states that when going on vacation on 03/20/2021 he had a sudden onset of severe right upper quadrant pain. He stated that he turned around and presented to [facility] emergency room with severe pain and vomiting. Imaging revealed a 6 mm CBD stone and pancreatitis. Lipase levels were over 32,000 with white blood cell count of 14,900, alkaline phosphatase of 134, CK of 912 and glucose of 180. He was then sent to [facility] where he was accepted by GI, Dr. Madden. He was given lactated Ringer's, Zofran, Dilaudid and morphine. He underwent ERCP on 03/21/2021 which did not reveal any obstructing stones. Suspicion was that he had passed the stone prior to the procedure. Symptoms improved while there. He had a bowel movement and was able to tolerate liquid diet. Lipase was less than 1000 in the p.m. of that date with a bilirubin of 1.9. Other labs at [facility] showed a sodium of 134 and potassium of 4.4, BUN was 19 and creatinine 0.74. Glucose was 143 calcium was 8.1. A1c was noted to be 5.3. SGPT was 44 and SGOT was 54. Bilirubin was 1.9. Lipase was 744. Patient was then discharged home on clear liquids for the upcoming 2 days. He then began to experience the right upper quadrant pain which worsened on 03/22/2021. He again presented to the emergency room at [facility] for further treatment. With evaluation in the [facility] emergency room he had a repeat CT of the abdomen/pelvis which showed acute pancreatitis , Small volume of abdominal and pelvic ascites, and minor bibasilar pleural fluid and atelectasis. White blood cell count was 17,700, Bilirubin 1.5, AST 71, ALT 127, alkaline phosphatase 145. Amylase was 427 with a lipase of 332. He received a liter of IV fluids along with Pepcid, Dilaudid, Ketorolac, 125 of Solu-Medrol, Reglan, Phenergan and then was admitted . This a.m. he states he did sleep some. He has required pain medicine throughout the night. He has minimal nausea. This a.m. electrolytes are satisfactory. AST is decreased to 51 with an ALT of 93. Lipase is now normal at 172. <Adele Escobar 03/23/21 09:52> [facility] History Medical History: Reports:: Coronary Artery Disease, Gastroesophageal Reflux Disease(GERD), Hyperlipidemia, Hypertension Denies:: Diabetes Mellitus Type 1, Diabetes Mellitus Type 2 <Adele Escobar 03/23/21 09:52> *Have you ever received a pneumonia vaccine?: No <Adele Escobar 03/23/21 09:52> *Have you received a flu vaccine this season?: No <Adele Escobar 03/23/21 09:52> Other Medical History: Reports: Arthritis <Adele Escobar 03/23/21 09:52> Laterality Cases: Bilateral: Arthroscopy Knee, Arthroscopy Shoulder, Lumpectomy <Adele Escobar 03/23/21 09:52> Other Surgeries: Yes: Appendectomy, Cardiac Catheterization, Cholecystectomy, Other <Adele Escobar 03/23/21 09:52> Amputation: No <Adele Escobar 03/23/21 09:52> Fractures: No <Adele Escobar 03/23/21 09:52> - *Social History Smoking Status: Former smoker <Adele Escobar 03/23/21 09:52> Tobacco Type: cigarettes <Adele Escobar 03/23/21 09:52> Alcohol Intake: never <Adele Escobar 03/23/21 09:52> Alcohol Intake Frequency:: holidays/special occasions only <Adele Escobar 03/23/21 09:52> Substance Use Type: denies use <Adele Escobar 03/23/21 09:52> *Occupational Status:: disabled <Adele Escobar 03/23/21 09:52> Housing: house <Adele Escobar 03/23/21 09:52> Household Members: spouse <Adele Escobar - 03/23/21 09:5
[2021-03-23 09:26] LABS: Lymphocytes % 18 % (10-50); Monocytes % 6 % (2-9); Neutrophils % 76 % (42-76); Platelet Estimate Normal; RBC Morphology Normal; Total Cells Counted 100
--- NOTE | 2021-03-23 11:25 | PC.NURSE ---
patient brought in home medications. patient stated he took his home meds that included clonzepam gabapentin aspirin diclofenac and losartan patient educated he shouldnot of taken meds with out us knowing and md office was notified. pharmacy alos notified. patient stated he take bisoprolol at night time which was switched
[2021-03-23 16:00] VITALS: BP 135/80; PULSE 72; RESP 19; TEMP 36.7; O2SAT 96
--- NOTE | 2021-03-23 17:38 | PC.NURSE ---
PATIENT IS A&O X4, CLEAR LUNGS, PULSES EQUAL. PATIENT HAD EPISODES OF PAIN THAT WOULD CAUSE PATIENT TO BECOME CLAMMY. THIS RN PROVIDED A FAN AND APPROPRIATE PAIN MEDICATION. PATIENT VERBALIZED THAT PAIN LEVEL HAD REDUCED. PATIENT AMBULATED IN HALLWAY 2X. GAIT STEADY AND TOLERATED WELL. PATIENT TOOK OWN HOME MEDICATIONS WHEN HIS SPOUSE BROUGHT MEDICATIONS FROM HOME, AWARE. PER FLORENCIO LÓPEZ OKAY FOR PATIENT TO HAVE A SMALL AMOUNT OF JELLO, THIS RN INSTRUCTED PATIENT TO TAKE A COUPLE OF BITES OF JELLO. WHEN THIS RN ENTERED ROOM, PATIENT WAS COMPLETING A CUP OF JELLO THAT SPOUSE BROUGHT FROM HOME. THIS RN EDUCATED THE PATIENT THE IMPORTANCE OF KEEPING FOOD INTAKE TO A MINIMUM. PATIENT AND SPOUSE VERBALIZED AN UNDERSTANDING. NO OTHER CONCERNS AT THIS TIME.
[2021-03-23 20:00] VITALS: BP 167/80; PULSE 63; RESP 20; TEMP 36.9; O2SAT 94
[2021-03-23 20:37] VITALS: RESP 22
[2021-03-23 23:41] VITALS: RESP 20
[2021-03-24] VITALS (16 sets, daily range): BP systolic 159–184; BP diastolic 81–95; PULSE 80–91; RESP 16–22; TEMP 37.1–37.7; O2SAT 93–96; BMI 32.1; BMI 32.0
--- NOTE | 2021-03-24 04:28 | PC.NURSE ---
pt has stated pain 10/10 throughout night. prn meds given with little relief. one time dose given in addition to prn meds. kpad in place. pt has ambulated and repositioned to try and alleviate pain. iv patent and infusing. npo. vss. call light in reach. alert and oriented. will continue to monitor
[2021-03-24 07:41] LABS: Basophils % 0.1 % (0.1-2.0); Eosinophils % 0.1 % (0.1-12.0); Hematocrit 39.1 % (42.0-52.0); Lymphocytes # 1.1 K/mm3 (0.7-4.5); Lymphocytes % 6.1 % (10-50); Mean Corpuscular HGB Conc 33.2 g/dL (31.8-35.4); Mean Corpuscular Volume 87.2 fl (80-94); Mean Platelet Volume 7.3 fl (7.4-10.4); Monocytes % 5.5 % (1.7-9.3); Neutrophils # 15.2 K/mm3 (1.8-7.8); Neutrophils % 88.2 % (37.0-80.0); Platelet Count 279 K/mm3 (142-424); Red Blood Count 4.48 M/mm3 (4.60-6.20); Red Cell Distribution Width 14.2 % (11.5-17.5); White Blood Count 17.3 K/mm3 (4.8-10.8)
[2021-03-24 07:49] LABS: Alanine Aminotransferase 68 U/L (12-78); Albumin Level 3.6 g/dl (3.5-5.0); Albumin/Globulin Ratio 1.3 (1.1-1.8); Alkaline Phosphatase 123 U/L (38-126); Amylase 145 U/L (30-110); Anion Gap 13.1 mEq/L (5-15); Aspartate Amino Transferase 41 U/L (17-59); Bilirubin,Total 0.8 mg/dl (0.2-1.3); Blood Urea Nitrogen 21 mg/dl (9-20); Calcium 8.4 mg/dl (8.4-10.2); Carbon Dioxide 22 mmol/L (22.0-30.0); Chloride 106 mmol/L (98-107); Creatine Kinase 353 U/L (55-170); Creatinine Clearance Estimated 156 mL/min (50-200); Estimated Glomerular Filt Rate 115 ml/min (>60); GFR (African American) 139 ML/MIN (>60); Globulin 2.8 g/dL (1.3-3.2); Glucose 101 mg/dl (74-100); Potassium 4.1 mmoL/L (3.5-5.1); Sodium 137 mmol/L (136-145); Total Protein,Serum 6.4 g/dl (6.3-8.2)
--- NOTE | 2021-03-24 07:53 | CT_ITS ---
PROCEDURE: CT ABDOMEN PELVIS WO/W CON CLINICAL INDICATION: f/u pancreatitis; worsening pain COMPARISON: CT CT ABDOMEN PELVIS W CON from 03/22/2021 TECHNIQUE: IV Contrast: 75ML Isovue 370 Oral Contrast None Axial images obtained with sagittal and coronal reformats. All CT scans at the facility use one or more dose reduction, viz: automated exposure control, ma/kV adjustment per patient size (including targeted exams where dose is matched to indication, i.e. head), or iterative reconstruction technique. FINDINGS: LOWER THORAX: There are small bilateral pleural effusions with bibasilar atelectatic changes. The effusion is slightly larger on the right and unchanged on the left. ABDOMEN & PELVIS: Prior cholecystectomy. No biliary dilatation.. Changes of acute pancreatitis once again noted with stranding of the peripancreatic with peripancreatic effusions. No obvious pancreatic necrosis. Mild pancreatic edema. There are diminished changes of the gastric antrum and pylorus and transverse portion of the duodenum not significantly changed. Small amount fluid is present along the posterior aspect of the stomach. There is thickening of the anterior pararenal fascia bilaterally left greater than right not significantly changed. No gas evident within the collections. Small amount fluid is present along the pericolic gutters on both sides and within the pelvis overall not significantly changed. No evidence of intestinal obstruction or free air. There is mild amount of subcutaneous edema in the lower abdomen laterally on both sides. No intestinal obstruction or free air. Prostate is enlarged at 5 cm. No evidence of diverticulitis or appendicitis. IMPRESSION: Overall no significant change in the findings compatible with acute pancreatitis with phlegmonous changes and peripancreatic effusions. No evidence of pancreatic necrosis Dictated by: Nakul Colvin MD 03/24/2021 12:20 Nakul Colvin MD in [place] 03/24/2021 12:20
[2021-03-24 08:06] LABS: MANUAL DIFFERENTIAL MANUAL DIFFERENTIAL (MANUAL DIFF)
--- NOTE | 2021-03-24 08:09 | HMH.ACPN2 ---
<Kimberlee Philip - Last Filed: 03/24/21 08:09> Internal Medicine - PN: Subj *Date: 03/24/21 *Time: 08:09 Interval history: Patient states he is in severe pain in his epigastric area. He states it radiates through to his back. He states he has been dry heaving all night. He denies any diarrhea. He did not sleep all night. Exam Vital signs and Labs for Last 24 Hours: Temp Pulse Resp BP Pulse Ox 99.2 F 83 16 179/95 H 93 L 03/24/21 08:00 03/24/21 08:00 03/24/21 08:00 03/24/21 08:00 03/24/21 08:00 Laboratory Results - last 24 hr 03/23/21 07:29: Total Counted 100, Neutrophils % (Manual) 76, Lymphocytes % (Manual) 18, Monocytes % (Manual) 6, Platelet Estimate Normal, RBC Morphology Normal 03/24/21 07:13: WBC 17.3 H, RBC 4.48 L, Hgb 13.0 L, Hct 39.1 L, MCV 87.2, MCH 29.0, MCHC 33.2, RDW 14.2, Plt Count 279 D, MPV 7.3 L, Neut % (Auto) 88.2 H, Lymph % (Auto) 6.1 L, [place] % (Auto) 5.5, Eos % (Auto) 0.1, Baso % (Auto) 0.1, Neut # (Auto) 15.2 H, Lymph # (Auto) 1.1, [place] # (Auto) 1.0, Eos # (Auto) 0.0, Baso # (Auto) 0.0 03/24/21 07:13: Sodium 137, Potassium 4.1, Chloride 106, Carbon Dioxide 22, Anion Gap 13.1, BUN 21 H, Creatinine 0.70, Estimated Creat Clear 156, Estimated GFR 115, Est GFR ( Amer) 139, Glucose 101 H, Calcium 8.4, Total Bilirubin 0.8, AST 41, ALT 68 D, Alkaline Phosphatase 123, Total Creatine Kinase 353 H, Total Protein 6.4, Albumin 3.6, Globulin 2.8, Albumin/Globulin Ratio 1.3, Amylase 145 H I & O for Last 24 hours: Intake & Output 05/02/03/22/21 03/23/21 03/24/21 11:59 11:59 11:59 11:59 Intake Total 5 / 1025 1587 / 1587 Output Total 0 / 0 0 / 0 Balance 1025 / 1025 1587 / 1587 Weight 217 lb 3 oz 216 lb 8 oz - Constitutional Comments: Does not appear to feel well - *Routine Respiratory Exam Present: CTA bilaterally - *Routine Cardiovascular Exam Present: RRR - *Routine Abdominal Exam Present: soft, normoactive bowel sounds, tenderness (epigastric area), distended - *Routine Extremities Exam Present: edema (trace). Absent: cyanosis, clubbing - *Routine Skin Exam Present: warm. Absent: rash - *Routine Neurological Exam Present: alert, oriented X3 Assessment and Plan (1) Acute pancreatitis Status: Acute Qualifiers: Pancreatitis type: unspecified pancreatitis type Acute pancreatitis complication: no infection or necrosis Qualified Code(s): K85.90 - Acute pancreatitis without necrosis or infection, unspecified Category: Medical Code(s): K85.90 - Acute pancreatitis without necrosis or infection, unspecified (2) Hypertension Status: Acute Category: Medical Code(s): I10 - Essential (primary) hypertension (3) GERD (gastroesophageal reflux disease) Status: Acute Category: Medical Code(s): K21.9 - Gastro-esophageal reflux disease without esophagitis (4) Hyperlipidemia Status: Chronic Qualifiers: Hyperlipidemia type: mixed hyperlipidemia Qualified Code(s): E78.2 - Mixed hyperlipidemia Category: Medical Code(s): E78.5 - Hyperlipidemia, unspecified - Assessment and plan all Dx Assessment and Plan for all problems:: Dr. Aguilera will change patient's pain medication to morphine as the Dilaudid does not seem to be helping. We will get a repeat CT scan. <Brody Aguilera - Last Filed: 03/24/21 09:43> Internal Medicine - PN: Subj *Date: 03/24/21 *Time: 09:41 Exam Vital signs and Labs for Last 24 Hours: Temp Pulse Resp BP Pulse Ox 99.2 F 83 18 179/95 H 93 L 03/24/21 08:00 03/24/21 08:00 03/24/21 09:39 03/24/21 08:00 03/24/21 08:00 Laboratory Results - last 24 hr 03/24/21 07:13: WBC 17.3 H, RBC 4.48 L, Hgb 13.0 L, Hct 39.1 L, MCV 87.2, MCH 29.0, MCHC 33.2, RDW 14.2, Plt Count 279 D, MPV 7.3 L, Neut % (Auto) 88.2 H, Lymph % (Auto) 6.1 L, [place] % (Auto) 5.5, Eos % (Auto) 0.1, Baso % (Auto) 0.1, Neut # (Auto) 15.2 H, Lymph # (Auto) 1.1, [place] # (Auto) 1.0, Eos # (Auto) 0.0, Baso # (Auto)
[2021-03-24 15:11] LABS: Lymphocytes % 5 % (10-50); Monocytes % 7 % (2-9); Neutrophils % 88 % (42-76); Platelet Estimate Normal; RBC Morphology Normal; Total Cells Counted 100
--- NOTE | 2021-03-24 15:45 | PC.NURSE ---
Pt continues to c/o pain and nausea this shift, this nurse has been in contact w/ marketing operations coordinator MD and PA. Adjustments made to pain meds and pt medicated per JAN. Maintains NPO status. Pt reports feeling weaker today than he has in the past. monitoring analyst applied, as well as cont pulse ox for monitoring. Pt has been a standby assist when transferring back and forth to bathroom for pt's safety. remains @ bedside, they have both been updated on plan of care as day progresses. He is currently resting w/ eyes closed in bed on right side. K Pad in place. Call lisandro w/in reach.
--- NOTE | 2021-03-24 18:22 | HMH.ACPN2 ---
Internal Medicine - PN: Subj *Date: 03/24/21 *Time: 18:22 Interval history: The patient was extremely uncomfortable this morning. He has improved after medication adjustment. His morphine was increased to 7 mg every 2 hours as needed. Klonopin was scheduled and Phenergan was scheduled. Also sublingual hyoscyamine was ordered every 6 hours to relieve spasm. Exam Vital signs and Labs for Last 24 Hours: Temp Pulse Resp BP Pulse Ox 98.9 F 80 18 184/87 H 94 L 03/24/21 16:00 03/24/21 16:33 03/24/21 16:00 03/24/21 16:00 03/24/21 16:00 Laboratory Results - last 24 hr 03/24/21 07:13: WBC 17.3 H, RBC 4.48 L, Hgb 13.0 L, Hct 39.1 L, MCV 87.2, MCH 29.0, MCHC 33.2, RDW 14.2, Plt Count 279 D, MPV 7.3 L, Neut % (Auto) 88.2 H, Lymph % (Auto) 6.1 L, [place] % (Auto) 5.5, Eos % (Auto) 0.1, Baso % (Auto) 0.1, Neut # (Auto) 15.2 H, Lymph # (Auto) 1.1, [place] # (Auto) 1.0, Eos # (Auto) 0.0, Baso # (Auto) 0.0, Total Counted 100, Neutrophils % (Manual) 88 H, Lymphocytes % (Manual) 5 L, Monocytes % (Manual) 7, Platelet Estimate Normal, RBC Morphology Normal 03/24/21 07:13: Sodium 137, Potassium 4.1, Chloride 106, Carbon Dioxide 22, Anion Gap 13.1, BUN 21 H, Creatinine 0.70, Estimated Creat Clear 156, Estimated GFR 115, Est GFR ( Amer) 139, Glucose 101 H, Calcium 8.4, Total Bilirubin 0.8, AST 41, ALT 68 D, Alkaline Phosphatase 123, Total Creatine Kinase 353 H, Total Protein 6.4, Albumin 3.6, Globulin 2.8, Albumin/Globulin Ratio 1.3, Amylase 145 H I & O for Last 24 hours: Intake & Output 05/03/21 05/04/21 05/05/21 05/06/21 11:59 11:59 11:59 11:59 Intake Total 1025 / 1025 1587 / 1587 1870 / 1870 Output Total 0 / 0 0 / 0 Balance 1025 / 1025 1587 / 1587 1870 / 1870 Weight 217 lb 3 oz 216 lb 0.848 oz - Constitutional mild distress - *Routine Respiratory Exam Present: CTA bilaterally - *Routine Cardiovascular Exam Present: RRR - *Routine Abdominal Exam Present: distended. Absent: normoactive bowel sounds - *Routine Extremities Exam Present: edema (Trace) - *Routine Neurological Exam Present: alert (Still uncomfortable.), oriented X3 Assessment and Plan (1) Acute pancreatitis Status: Acute Qualifiers: Pancreatitis type: unspecified pancreatitis type Acute pancreatitis complication: no infection or necrosis Qualified Code(s): K85.90 - Acute pancreatitis without necrosis or infection, unspecified Category: Medical Code(s): K85.90 - Acute pancreatitis without necrosis or infection, unspecified (2) Hypertension Status: Acute Category: Medical Code(s): I10 - Essential (primary) hypertension (3) GERD (gastroesophageal reflux disease) Status: Acute Category: Medical Code(s): K21.9 - Gastro-esophageal reflux disease without esophagitis (4) Hyperlipidemia Status: Chronic Qualifiers: Hyperlipidemia type: mixed hyperlipidemia Qualified Code(s): E78.2 - Mixed hyperlipidemia Category: Medical Code(s): E78.5 - Hyperlipidemia, unspecified (5) Ileus Status: Acute Category: Medical Code(s): K56.7 - Ileus, unspecified - Assessment and plan all Dx Assessment and Plan for all problems:: I have ordered an NG to low intermittent wall suction.
--- NOTE | 2021-03-24 18:22 | PC.NURSE ---
verbal order from Dr De La Fuente to insert NG tube and place on LIWS
--- NOTE | 2021-03-24 22:42 | PC.NURSE ---
He is A&Ox4. He has received frequent PRN medications for RUQ and LUQ pain that radiates to his back. His is in the room. He has attempted at changing positions. Previous shift placed an NG. He had out 100mL of brown drainage via NG. He did not tolerate the NG and reported that it was causing him pressure. He was educated on the purple of the NG and he insisted that it be removed. His NG was removed. He reports his last BM was on 03/23/21.
[2021-03-25] VITALS (11 sets, daily range): BP systolic 155–179; BP diastolic 81–97; PULSE 74–100; RESP 17–20; TEMP 36.4–37; O2SAT 90–96; BMI 32.8
[2021-03-25 08:28] LABS: Basophils % 0.1 % (0.1-2.0); Eosinophils % 0.2 % (0.1-12.0); Hematocrit 35.7 % (42.0-52.0); Hemoglobin 11.9 g/dL (14.1-18.0); Lymphocytes # 0.9 K/mm3 (0.7-4.5); Lymphocytes % 6.4 % (10-50); Mean Corpuscular HGB Conc 33.4 g/dL (31.8-35.4); Mean Corpuscular Hemoglobin 29.1 pg (27.0-31.2); Mean Corpuscular Volume 87.1 fl (80-94); Mean Platelet Volume 7.6 fl (7.4-10.4); Monocytes # 0.8 K/mm3 (0.1-1.0); Monocytes % 5.8 % (1.7-9.3); Neutrophils # 11.9 K/mm3 (1.8-7.8); Neutrophils % 87.4 % (37.0-80.0); Platelet Count 219 K/mm3 (142-424); Red Cell Distribution Width 14.2 % (11.5-17.5); White Blood Count 13.6 K/mm3 (4.8-10.8)
--- NOTE | 2021-03-25 08:32 | HMH.ACPN2 ---
<Kimberlee Philip - Last Filed: 03/25/21 08:32> Internal Medicine - PN: Subj *Date: 03/25/21 *Time: 08:32 Interval history: Patient is feeling a little bit better today. Dr. De La Fuente increased his pain medication dose yesterday and scheduled him on hyoscyamine and clonazepam. He states he was able to rest a little bit last night. He still has pain in the epigastric area that radiates to his back. Exam Vital signs and Labs for Last 24 Hours: Temp Pulse Resp BP Pulse Ox 98.5 F 76 17 155/88 H 93 L 03/25/21 08:00 03/25/21 08:00 03/25/21 08:00 03/25/21 08:00 03/25/21 08:00 Laboratory Results - last 24 hr 03/24/21 07:13: Total Counted 100, Neutrophils % (Manual) 88 H, Lymphocytes % (Manual) 5 L, Monocytes % (Manual) 7, Platelet Estimate Normal, RBC Morphology Normal I & O for Last 24 hours: Intake & Output 03/22/21 03/23/21 03/24/21 03/25/21 11:59 11:59 11:59 11:59 Intake Total 1025 / 1025 1587 / 1587 3151 / 3151 Output Total 0 / 0 0 / 0 100 / 100 Balance 1025 / 1025 1587 / 1587 3051 / 3051 Weight 217 lb 3 oz 216 lb 0.848 oz 221 lb 5 oz - Constitutional no acute distress (Appears more comfortable today) - *Routine Respiratory Exam Present: CTA bilaterally - *Routine Cardiovascular Exam Present: RRR - *Routine Abdominal Exam Present: soft, normoactive bowel sounds, tenderness (Epigastric area) - *Routine Extremities Exam Absent: cyanosis, clubbing, edema - *Routine Skin Exam Present: warm. Absent: rash - *Routine Neurological Exam Present: alert, oriented X3 Assessment and Plan (1) Acute pancreatitis Status: Acute Qualifiers: Pancreatitis type: unspecified pancreatitis type Acute pancreatitis complication: no infection or necrosis Qualified Code(s): K85.90 - Acute pancreatitis without necrosis or infection, unspecified Category: Medical Code(s): K85.90 - Acute pancreatitis without necrosis or infection, unspecified (2) Hypertension Status: Acute Category: Medical Code(s): I10 - Essential (primary) hypertension (3) GERD (gastroesophageal reflux disease) Status: Acute Category: Medical Code(s): K21.9 - Gastro-esophageal reflux disease without esophagitis (4) Hyperlipidemia Status: Chronic Qualifiers: Hyperlipidemia type: mixed hyperlipidemia Qualified Code(s): E78.2 - Mixed hyperlipidemia Category: Medical Code(s): E78.5 - Hyperlipidemia, unspecified (5) Ileus Status: Acute Category: Medical Code(s): K56.7 - Ileus, unspecified - Assessment and plan all Dx Assessment and Plan for all problems:: CT scan from yesterday showed overall no change in his acute pancreatitis. We will continue current treatment and will add ice chips today. <Brody Aguilera - Last Filed: 03/25/21 21:36> Internal Medicine - PN: Subj *Date: 03/25/21 *Time: 21:34 Exam Vital signs and Labs for Last 24 Hours: Temp Pulse Resp BP Pulse Ox 97.5 F L 86 18 159/84 H 90 L 03/25/21 20:00 03/25/21 20:00 03/25/21 20:00 03/25/21 20:00 03/25/21 20:00 Laboratory Results - last 24 hr 03/25/21 07:47: WBC 13.6 H, RBC 4.10 L, Hgb 11.9 L, Hct 35.7 L, MCV 87.1, MCH 29.1, MCHC 33.4, RDW 14.2, Plt Count 219, MPV 7.6, Neut % (Auto) 87.4 H, Lymph % (Auto) 6.4 L, [place] % (Auto) 5.8, Eos % (Auto) 0.2, Baso % (Auto) 0.1, Neut # (Auto) 11.9 H, Lymph # (Auto) 0.9, [place] # (Auto) 0.8, Eos # (Auto) 0.0, Baso # (Auto) 0.0, Total Counted 100, Neutrophils % (Manual) 88 H, Lymphocytes % (Manual) 5 L, Monocytes % (Manual) 7, Platelet Estimate Normal, RBC Morphology Normal I & O for Last 24 hours: Intake & Output 03/23/21 03/24/21 03/25/21 03/26/21 11:59 11:59 11:59 11:59 Intake Total 1025 / 1025 1587 / 1587 3151 / 3151 0 / 0 Output Total 0 / 0 0 / 0 100 / 100 Balance 1025 / 1025 1587 / 1587 3051 / 3051 0 / 0 Weight 217 lb 3 oz 216 lb 0.848 oz 221 lb 5 oz Assessment and Plan (1) Acute pancreatitis Status: Acute Qualifiers: P
[2021-03-25 08:41] LABS: MANUAL DIFFERENTIAL MANUAL DIFFERENTIAL (MANUAL DIFF)
[2021-03-25 09:32] LABS: Lymphocytes % 5 % (10-50); Monocytes % 7 % (2-9); Neutrophils % 88 % (42-76); Platelet Estimate Normal; RBC Morphology Normal; Total Cells Counted 100
[2021-03-26] VITALS (9 sets, daily range): BP systolic 142–189; BP diastolic 81–97; PULSE 80–95; RESP 16–18; TEMP 36.9–37.9; O2SAT 91–93; BMI 33.5
--- NOTE | 2021-03-26 04:32 | PC.NURSE ---
Reassessed patient's temp at 0430, 98.3 Oral. Will continue to monitor.
--- NOTE | 2021-03-26 04:43 | PC.NURSE ---
Pt's pain quite severe throughout this shift. Gave Morphine 7 mg 3 times this evening and scheduled Torodol 15 mg. Patient calls out for pain medicine every two to three hours. Patients VSS WDL, respirations non labored, no signs and symptoms of narcotic over use. Will continue to monitor for any acute changes.
--- NOTE | 2021-03-26 05:47 | PC.NURSE ---
Morphine 7 mg in an 8 mg vial could not be located, had to use 2 4 mg, wast 1 mg to equal 7 mg. Verified by Rodriguez SOTO.
[2021-03-26 06:25] LABS: Basophils % 0.2 % (0.1-2.0); Eosinophils # 0.1 K/mm3 (0.0-0.4); Eosinophils % 0.6 % (0.1-12.0); Hematocrit 36.2 % (42.0-52.0); Hemoglobin 11.8 g/dL (14.1-18.0); Lymphocytes # 1.3 K/mm3 (0.7-4.5); Lymphocytes % 8.9 % (10-50); Mean Corpuscular HGB Conc 32.6 g/dL (31.8-35.4); Mean Corpuscular Hemoglobin 28.8 pg (27.0-31.2); Mean Corpuscular Volume 88.3 fl (80-94); Mean Platelet Volume 7.8 fl (7.4-10.4); Monocytes # 0.8 K/mm3 (0.1-1.0); Monocytes % 5.4 % (1.7-9.3); Neutrophils # 12.2 K/mm3 (1.8-7.8); Neutrophils % 84.9 % (37.0-80.0); Platelet Count 225 K/mm3 (142-424); White Blood Count 14.4 K/mm3 (4.8-10.8)
[2021-03-26 06:33] LABS: Alanine Aminotransferase 69 U/L (12-78); Albumin Level 3.1 g/dl (3.5-5.0); Albumin/Globulin Ratio 1.1 (1.1-1.8); Alkaline Phosphatase 171 U/L (38-126); Anion Gap 11.1 mEq/L (5-15); Aspartate Amino Transferase 60 U/L (17-59); Bilirubin,Total 1.2 mg/dl (0.2-1.3); Blood Urea Nitrogen 21 mg/dl (9-20); Calcium 8.5 mg/dl (8.4-10.2); Carbon Dioxide 24 mmol/L (22.0-30.0); Chloride 107 mmol/L (98-107); Creatinine Clearance Estimated 190 mL/min (50-200); Estimated Glomerular Filt Rate 137 ml/min (>60); GFR (African American) 166 ML/MIN (>60); Globulin 2.8 g/dL (1.3-3.2); Glucose 86 mg/dl (74-100); Potassium 4.1 mmoL/L (3.5-5.1); Sodium 138 mmol/L (136-145); Total Protein,Serum 5.9 g/dl (6.3-8.2)
--- NOTE | 2021-03-26 08:29 | HMH.ACPN2 ---
<Zoraida Reyes - Last Filed: 03/26/21 08:29> Internal Medicine - PN: Subj *Date: 03/26/21 *Time: 07:45 Interval history: Pt reports he is doing better this morning although he still has some LUQ pain radiating to his upper back. He continues with nausea which is tolerable with prn meds and remains NPO. Exam Vital signs and Labs for Last 24 Hours: Temp Pulse Resp BP Pulse Ox 100.3 F H 80 18 157/81 H 92 L 03/26/21 03:41 03/26/21 04:00 03/26/21 05:45 03/26/21 03:41 03/26/21 03:41 Laboratory Results - last 24 hr 03/25/21 07:47: WBC 13.6 H, RBC 4.10 L, Hgb 11.9 L, Hct 35.7 L, MCV 87.1, MCH 29.1, MCHC 33.4, RDW 14.2, Plt Count 219, MPV 7.6, Neut % (Auto) 87.4 H, Lymph % (Auto) 6.4 L, [place] % (Auto) 5.8, Eos % (Auto) 0.2, Baso % (Auto) 0.1, Neut # (Auto) 11.9 H, Lymph # (Auto) 0.9, [place] # (Auto) 0.8, Eos # (Auto) 0.0, Baso # (Auto) 0.0, Total Counted 100, Neutrophils % (Manual) 88 H, Lymphocytes % (Manual) 5 L, Monocytes % (Manual) 7, Platelet Estimate Normal, RBC Morphology Normal 03/26/21 06:10: WBC 14.4 H, RBC 4.10 L, Hgb 11.8 L, Hct 36.2 L, MCV 88.3, MCH 28.8, MCHC 32.6, RDW 14.0, Plt Count 225, MPV 7.8, Neut % (Auto) 84.9 H, Lymph % (Auto) 8.9 L, [place] % (Auto) 5.4, Eos % (Auto) 0.6, Baso % (Auto) 0.2, Neut # (Auto) 12.2 H, Lymph # (Auto) 1.3, [place] # (Auto) 0.8, Eos # (Auto) 0.1, Baso # (Auto) 0.0 03/26/21 06:10: Sodium 138, Potassium 4.1, Chloride 107, Carbon Dioxide 24, Anion Gap 11.1, BUN 21 H, Creatinine 0.60 L, Estimated Creat Clear 190, Estimated GFR 137, Est GFR ( Amer) 166, Glucose 86, Calcium 8.5, Total Bilirubin 1.2, AST 60 H D, ALT 69, Alkaline Phosphatase 171 H, Total Protein 5.9 L, Albumin 3.1 L, Globulin 2.8, Albumin/Globulin Ratio 1.1 I & O for Last 24 hours: Intake & Output 03/23/21 03/24/21 03/25/21 03/26/21 11:59 11:59 11:59 11:59 Intake Total 1025 / 1025 1587 / 1587 3151 / 3151 1395 / 1395 Output Total 0 / 0 0 / 0 100 / 100 Balance 1025 / 1025 1587 / 1587 3051 / 3051 1395 / 1395 Weight 217 lb 3 oz 216 lb 0.848 oz 221 lb 5 oz 226 lb 7 oz - Constitutional no acute distress (appears uncomfortable with movement) - *Routine HEENT Exam Head: Present: normocephalic, atraumatic ENT: Present: mucous membranes moist - *Routine Respiratory Exam Present: CTA bilaterally - *Routine Cardiovascular Exam Present: RRR - *Routine Abdominal Exam Comments: BS present x 4, soft, not distended, ttp LUQ and epigastrium - *Routine Extremities Exam Present: full ROM, pulses intact. Absent: calf tenderness Comments: 1+ BLE edema - *Routine Neurological Exam Present: alert, oriented X3, moving all extremities, normal speech. Absent: facial asymmetry Assessment and Plan (1) Acute pancreatitis Status: Acute Qualifiers: Pancreatitis type: unspecified pancreatitis type Acute pancreatitis complication: no infection or necrosis Qualified Code(s): K85.90 - Acute pancreatitis without necrosis or infection, unspecified Category: Medical Code(s): K85.90 - Acute pancreatitis without necrosis or infection, unspecified (2) Hypertension Status: Acute Category: Medical Code(s): I10 - Essential (primary) hypertension (3) GERD (gastroesophageal reflux disease) Status: Acute Category: Medical Code(s): K21.9 - Gastro-esophageal reflux disease without esophagitis (4) Hyperlipidemia Status: Chronic Qualifiers: Hyperlipidemia type: mixed hyperlipidemia Qualified Code(s): E78.2 - Mixed hyperlipidemia Category: Medical Code(s): E78.5 - Hyperlipidemia, unspecified (5) Ileus Status: Acute Category: Medical Code(s): K56.7 - Ileus, unspecified - Assessment and plan all Dx Assessment and Plan for all problems:: per Dr. Aguilera <Brody Aguilera - Last Filed: 03/26/21 14:08> Internal Medicine - PN: Subj *Date: 03/26/21 *Time: 14:05 Exam Vital signs and Labs for Last 24 Hours: Temp Pulse Resp BP Pulse Ox 99.0 F 88 18 189/90
--- NOTE | 2021-03-26 16:06 | P.CONS_ITS ---
Gastroenterology Consult Consult:: Gastroenterology Consultation Date of Service-March 26, 2021 History of Present Illness: Mr. Sullivan is a 60-year-old gentleman with a recent history of gallstone pancreatitis. He was transferred to [facility] and accepted by Dr. Rodolfo Madden. The patient had an ERCP on March 21, 2021 which did reveal some minor biliary sludge but no stones. At that time, his white blood cell count was 14,000 and his lipase level was 32,000. His lipase declined 744. He was discharged on clear liquids. He arrived again at [facility]. His repeat CAT scan showed moderately severe acute pancreatitis with no obvious pancreatic necrosis but moderate edema with thickening of the perirenal fascia. There was some fluid present around the pericolic gutters on both sides. The patient continues to have abdominal pain. His white blood cell count today was 14.4 with hemoglobin 11.8 and hematocrit 36.2. His labs showed AST 60, ALT 69, alkaline phosphatase 171 and total bilirubin 1.2. His temperature has been 1015. His amylase 145 and lipase 172 were normal. Past Medical History: 1. Hypertension 2. CASHD 3. Hyperlipidemia 4. GERD Past Surgical History: See chart Medications: 1. Aspirin 81 mg 2. Clonazepam 3. Diclofenac 4. Furosemide 5. Losartan 6. Gabapentin 7. Montelukast 8. Bisoprolol ALLERGIES: 1. Statins 2. Sulfa 3. Penicillin 4. Lasix 5. Tramadol 6. TriCor 7. Adhesive tape Social History: The patient is and lives in [place]. He is a former smoker but denies alcohol. He is disabled. Family History: See chart Review of Systems: See chart Physical Examination: Gen.: The patient is a well-developed well-nourished individual in no acute distress HEENT: Normocephalic/atraumatic extraocular movements are intact anicteric Neck: Supple no lymphadenopathy Chest: Clear to auscultation Cardiovascular: Regular rate and rhythm Abdomen: Normoactive bowel sounds mild distention and with moderate tenderness noted generalized, no masses no hepatosplenomegaly Extremities: No edema Labs: See chart Radiology: See chart Impression/Plan: 1. Moderate acute gallstone pancreatitis. Based upon low-grade temperature and ongoing abdominal pain, I would recommend pain control. I would also recommend starting feedings early and I would recommend nutrition consultation and initiation of Ensure Plus. I would also consider serial CT scan of the abdomen and repeat a CAT scan again on Monday. If his fever spikes above 101, I would recommend blood cultures and scanning sooner. I have discussed the case with Panfilo Aguilera.
--- NOTE | 2021-03-26 16:47 | DIET.NUTRFU ---
Addendum entered by Marily Javed 03/29/21 16:54: Pt has tolerated low fat diet well though pain continues in waves, overall he is happy with improvement symptoms. He does admit to eating a bit too much at once at first but has readjusted to taking small sips/bites and states this has made a difference. He has been having around 5 glucerna per day, eating around 50% meals. Bowels are moving. F/u scan with out significant change, Lipase WNL. No changes nutritional care plan, encouraged pt to continue to have very small frequent meals of low fat foods/supplements as tolerated. Original Note: Pt with gallstone pancreatitis, day 4 NPO. GI consult today and Dr. Causey recommended early nutrition initiation and supplementation, concur with this. Low fat diet with TID glucerna given (to start at breakfast). Pt to request additional supplements as needed based on food intake. He requested glucerna as he does not usually consume added sugar, carbohydrate content glucerna is adequate. Pt encouraged to take small bites/sips and eat small amounts of foods while relying on nutritional supplements 4-6/day. Diet education provided to pt and . They already follow a low fat diet and feel confident in ability to be compliant with diet, encouraged to reach out with any questions/concerns. Will monitor pt tolerance and alter nutritional care plan as indicated.
--- NOTE | 2021-03-26 19:34 | PC.NURSE ---
PATIENT HAS COMPLAINED OF BURNING STOMACH THRU MOST OF THIS RN SHIFT. MD AWARE, TUMS ORDERED. DR. KNAPP AT BEDSIDE AT 1550. MD ORDERED TYLENOL 650MG Q6HRS PRN FOR TEMPERATURE, IF TEMPERATURE IS ABOVE 101, BLOOD CULTURES ARE TO BE ORDERED AND A LOW FAT DIET WAS PLACED. DIETARY CONSULTED, AT BEDSIDE. PATIENT IS TO DRINK AT AT LEAST 5 ENSURES PER DAY. PATIENT AND SPOUSE VERBALIZED AN UNDERSTANDING.
[2021-03-27] VITALS (7 sets, daily range): BP systolic 150–192; BP diastolic 76–98; PULSE 74–92; RESP 16–28; TEMP 36.9–38.1; O2SAT 92–96; BMI 34.9
--- NOTE | 2021-03-27 05:26 | PC.NURSE ---
REassessed patients B/P manually 160/80. Will continue to monitor for any acute changes
--- NOTE | 2021-03-27 11:17 | HMH.ACPN2 ---
Internal Medicine - PN: Subj *Date: 03/27/21 *Time: 08:30 Interval history: He rested a little better last night. His however notes that he has been confused and hallucinating at times. He is easily reoriented. She thinks it is related to the morphine. He was seen in consultation by Dr. Causey yesterday, please refer to consult note in chart. He is recommended to start feedings and thus far he has tolerated his diet. He had a bowel movement this morning. He had a low-grade fever 100.3 overnight. Exam Vital signs and Labs for Last 24 Hours: Temp Pulse Resp BP Pulse Ox 100.6 F H 92 H 20 192/90 H 93 L 03/27/21 08:00 03/27/21 08:00 03/27/21 08:00 03/27/21 08:00 03/27/21 08:00 I & O for Last 24 hours: Intake & Output 03/24/21 03/25/21 03/26/21 03/27/21 11:59 11:59 11:59 11:59 Intake Total 1587 / 1587 3151 / 3151 1395 / 1395 2779 / 2779 Output Total 0 / 0 100 / 100 Balance 1587 / 1587 3051 / 3051 1395 / 1395 2779 / 2779 Weight 216 lb 0.848 oz 221 lb 5 oz 226 lb 7 oz 236 lb 6 oz Narrative: He is alert and oriented at the present time. Lungs are clear. Heart is regular. Abdomen is slightly distended with moderate epigastric tenderness. Bowel sounds are present but diminished. Assessment and Plan (1) Acute pancreatitis Status: Acute Qualifiers: Pancreatitis type: unspecified pancreatitis type Acute pancreatitis complication: no infection or necrosis Qualified Code(s): K85.90 - Acute pancreatitis without necrosis or infection, unspecified Category: Medical Code(s): K85.90 - Acute pancreatitis without necrosis or infection, unspecified (2) Hypertension Status: Acute Category: Medical Code(s): I10 - Essential (primary) hypertension (3) GERD (gastroesophageal reflux disease) Status: Acute Category: Medical Code(s): K21.9 - Gastro-esophageal reflux disease without esophagitis (4) Hyperlipidemia Status: Chronic Qualifiers: Hyperlipidemia type: mixed hyperlipidemia Qualified Code(s): E78.2 - Mixed hyperlipidemia Category: Medical Code(s): E78.5 - Hyperlipidemia, unspecified (5) Ileus Status: Acute Category: Medical Code(s): K56.7 - Ileus, unspecified - Assessment and plan all Dx Assessment and Plan for all problems:: Appreciate GI consultation. We will proceed with feedings and ongoing pain control. We will wean his morphine dose and try to extend the interval between doses. Resume his bisoprolol for hypertension.
--- NOTE | 2021-03-27 13:58 | PC.NURSE ---
REQUESTED RN PRESENCES. SPOUSE INFORMED THIS RN THAT PATIENT HAD RED BLISTER ALL OVER BACK AND THAT THIS HAPPENED ONCE BEFORE WHEN PATIENT WAS RECEIVING. THIS RN ASSESSED PATIENT'S BACK AND NOTED A RED BLISTER RASH. THIS RN SPOKE WITH DR. YVETTE MD ORDERED PERCOCET 7.5MG Q4HRS PRN FOR PAIN.
--- NOTE | 2021-03-27 17:18 | PC.NURSE ---
PATIENT IS A&O X4, LUNGS ARE CLEAR, PULSES ARE EQUAL. NO NEW COMPLAINTS THUS FAR.
--- NOTE | 2021-03-27 21:00 | PC.NURSE ---
PT refused Fluids 125 ml/he NS citing ate and drank a lot all day. Will chart patient refused. Will continue to monitor
[2021-03-28] VITALS (7 sets, daily range): BP systolic 158–184; BP diastolic 80–96; PULSE 77–90; RESP 18–28; TEMP 36.5–37.7; O2SAT 92–96; BMI 34.7
--- NOTE | 2021-03-28 01:05 | PC.NURSE ---
Reassessment of patients blood pressure manually 160/80, will continue to monitor for any acute changes.
--- NOTE | 2021-03-28 04:56 | PC.NURSE ---
Patient requested pain medication at the beginning of the shift (Torodol 15 mg), however, refused the second scheduled dose stating It makes me loopy . Patient has had 2 doses of Tylenol 650 mg and stated Got some relief Patient ambulated the yan, one tejon without incidence. Patient c/o of heartburn and administered TUMS per order. Patient did not want fluids running so did not administer as per pt request. Will continue to monitor for any acute changes.
--- NOTE | 2021-03-28 09:08 | HMH.ACPN2 ---
Internal Medicine - PN: Subj *Date: 03/28/21 *Time: 09:08 Interval history: Subjectively feeling better. He has weaned off the morphine. He is tolerating the Glucerna well and a few solids. Bowels are moving. He has been ambulating in the hallway. No fever last night. Exam Vital signs and Labs for Last 24 Hours: Temp Pulse Resp BP Pulse Ox 98.3 F 82 18 174/95 H 92 L 03/28/21 08:00 03/28/21 08:00 03/28/21 08:00 03/28/21 08:00 03/28/21 08:00 I & O for Last 24 hours: Intake & Output 03/25/21 03/26/21 03/27/21 03/28/21 11:59 11:59 11:59 11:59 Intake Total 3151 / 3151 1395 / 1395 2779 / 2779 1870 / 1870 Output Total 100 / 100 Balance 3051 / 3051 1395 / 1395 2779 / 2779 1870 / 1870 Weight 221 lb 5 oz 226 lb 7 oz 236 lb 6 oz 234 lb 8 oz Narrative: He appears more comfortable. Lungs are clear. Abdomen is slightly distended with epigastric tenderness. No rebound or guarding. Bowel sounds are present. Assessment and Plan (1) Acute pancreatitis Status: Acute Qualifiers: Pancreatitis type: unspecified pancreatitis type Acute pancreatitis complication: no infection or necrosis Qualified Code(s): K85.90 - Acute pancreatitis without necrosis or infection, unspecified Category: Medical Code(s): K85.90 - Acute pancreatitis without necrosis or infection, unspecified (2) Hypertension Status: Acute Category: Medical Code(s): I10 - Essential (primary) hypertension (3) GERD (gastroesophageal reflux disease) Status: Acute Category: Medical Code(s): K21.9 - Gastro-esophageal reflux disease without esophagitis (4) Hyperlipidemia Status: Chronic Qualifiers: Hyperlipidemia type: mixed hyperlipidemia Qualified Code(s): E78.2 - Mixed hyperlipidemia Category: Medical Code(s): E78.5 - Hyperlipidemia, unspecified (5) Ileus Status: Acute Category: Medical Code(s): K56.7 - Ileus, unspecified - Assessment and plan all Dx Assessment and Plan for all problems:: Discontinue inspector welded parts. Discontinue IV fluids. Plan to repeat CT scans tomorrow. GI follow-up.
--- NOTE | 2021-03-28 14:46 | PC.NURSE ---
Spoke with Dr. Santos contemporary or modern dancer and he stated toradol could be d/cd per pt's request.
--- NOTE | 2021-03-28 18:27 | PC.NURSE ---
Pt alert and oriented and able to make needs known. No complaints at this time, stated he had some pressure in upper abd earlier this evening, but after levsin, it improved. Pt has ambulated in halls this shift and has stated he is going to work on eating a better diet. BS x 4, s1,s2, Lungs cta. VSS. CB in reach.
[2021-03-29] VITALS: BP 165/86; PULSE 76; RESP 20; TEMP 37; O2SAT 95
[2021-03-29 04:00] VITALS: BP 143/72; PULSE 76; RESP 20; TEMP 36.9; O2SAT 96
--- NOTE | 2021-03-29 04:27 | PC.NURSE ---
PT RESTING COMFORTABLY AT THIS TIME, MEDICATED PER EMAR FOR PAIN, ADEQUATE RELIEF. VITAL SIGNS STABLE. BLOOD PRESSURES ELEVATED BUT HAVE BEEN. PT AFEBRILE THIS SHIFT. A&O X 4. LUNGS CTAB. HEART RATE REGULAR, NO EDEMA. IV PATENT. TOLERATING DIET, NO NAUSEA. PT REPORTS CONTINUED DIARRHEA SINCE ADMISSION. ABD SOFT AND MODERATELY TENDER IN UPPER QUADS. BOWEL SOUNDS ACTIVE X 4 QUADS. VOIDING WITHOUT DIFFICULTY. CALL LIGHT WITHIN REACH. WILL CONTINUE TO MONITOR.
[2021-03-29 05:00] VITALS: BMI 33.2
--- NOTE | 2021-03-29 07:39 | CT_ITS ---
PROCEDURE: CT ABDOMEN PELVIS WO/W CON CLINICAL INDICATION: f/u pancreatitis COMPARISON: CT CT ABDOMEN PELVIS WO/W CON from 03/24/2021 TECHNIQUE: IV Contrast: 75ML Isovue 370 Oral Contrast None Axial images obtained with sagittal and coronal reformats. All CT scans at the facility use one or more dose reduction, viz: automated exposure control, ma/kV adjustment per patient size (including targeted exams where dose is matched to indication, i.e. head), or iterative reconstruction technique. FINDINGS: LOWER THORAX: Small to moderate bilateral pleural effusions with adjacent compressive atelectasis. Atelectasis noted in the left lower lobe. Small pericardial effusion. ABDOMEN & PELVIS: The liver demonstrates no focal abnormality within the phase of IV contrast. Cholecystectomy is noted. No intra hepatic ductal dilation. The spleen is unremarkable. Both adrenal glands and kidneys demonstrate no focal abnormality. The pancreas appears edematous and demonstrates extensive peripancreatic fluid. No focal areas of hyperdensity noted on the precontrast images. No evidence of hypoenhancing areas noted within the pancreas. No evidence of pancreatic necrosis. The large and small bowel loops demonstrate no focal wall thickening, obstruction or adjacent inflammatory changes. The appendix is not visualized. No secondary signs of appendicitis noted. Small amount of free fluid is noted in the abdomen and pelvis. No evidence of free intraperitoneal air is noted. No significant mesenteric or retroperitoneal adenopathy. The prostate gland is unremarkable. Small bilateral fat containing inguinal hernias. Atherosclerotic vascular calcification of the abdominal aorta and its branches. Multilevel degenerative changes of the visualized lumbar spine. IMPRESSION: Findings are consistent with known pancreatitis. Free fluid in the abdomen and pelvis. No evidence of pancreatic necrosis. Bilateral pleural effusions and pericardial effusion, marginally worse compared to the prior study. Dictated by: Radha Alcala 03/29/2021 11:10 Radha Alcala in OV 03/29/2021 11:10
[2021-03-29 08:00] VITALS: BP 157/83; PULSE 83; RESP 21; TEMP 36.8; O2SAT 93
--- NOTE | 2021-03-29 08:28 | HMH.ACPN2 ---
<Adele Escobar - Last Filed: 03/29/21 08:28> Internal Medicine - PN: Subj *Date: 03/29/21 *Time: 08:28 Interval history: Patient states he continues to do better. He states Percocet helps his pain if he takes the med and then lies perfectly still. He has been able to eat and drink. He is ambulated without difficulty. He still feels bloated. Bowels are more normal now. He is voiding QS. He denies chest pain or shortness of breath. Exam Vital signs and Labs for Last 24 Hours: Temp Pulse Resp BP Pulse Ox 98.5 F 76 20 143/72 H 96 03/29/21 04:00 03/29/21 04:00 03/29/21 04:00 03/29/21 04:00 03/29/21 04:00 I & O for Last 24 hours: Intake & Output 03/26/21 03/27/21 03/28/21 03/29/21 11:59 11:59 11:59 11:59 Intake Total 1395 / 1395 2779 / 2779 1870 / 1870 960 / 960 Balance 1395 / 1395 2779 / 2779 1870 / 1870 960 / 960 Weight 226 lb 7 oz 236 lb 6 oz 234 lb 8 oz 224 lb 3 oz - Constitutional no acute distress Comments: Awakened for assessment - *Routine Respiratory Exam Present: CTA bilaterally (Anteriorly and posteriorly) - *Routine Cardiovascular Exam Present: RRR - *Routine Abdominal Exam Present: soft, normoactive bowel sounds, tenderness (Across upper quads.), distended. Absent: guarding - *Routine Extremities Exam Absent: edema, calf tenderness - *Routine Neurological Exam Present: alert, oriented X3 Assessment and Plan (1) Acute pancreatitis Status: Acute Qualifiers: Pancreatitis type: unspecified pancreatitis type Acute pancreatitis complication: no infection or necrosis Qualified Code(s): K85.90 - Acute pancreatitis without necrosis or infection, unspecified Category: Medical Code(s): K85.90 - Acute pancreatitis without necrosis or infection, unspecified (2) Hypertension Status: Acute Category: Medical Code(s): I10 - Essential (primary) hypertension (3) GERD (gastroesophageal reflux disease) Status: Acute Category: Medical Code(s): K21.9 - Gastro-esophageal reflux disease without esophagitis (4) Hyperlipidemia Status: Chronic Qualifiers: Hyperlipidemia type: mixed hyperlipidemia Qualified Code(s): E78.2 - Mixed hyperlipidemia Category: Medical Code(s): E78.5 - Hyperlipidemia, unspecified (5) Ileus Status: Acute Category: Medical Code(s): K56.7 - Ileus, unspecified - Assessment and plan all Dx Assessment and Plan for all problems:: Continue current care. Will have a follow-up CT today. <Brody Aguilera - Last Filed: 03/29/21 23:10> Internal Medicine - PN: Subj *Date: 03/29/21 *Time: 23:09 Exam Vital signs and Labs for Last 24 Hours: Temp Pulse Resp BP Pulse Ox 98.3 F 90 28 H 166/94 H 96 03/29/21 20:00 03/29/21 20:00 03/29/21 20:00 03/29/21 20:00 03/29/21 20:00 Laboratory Results - last 24 hr 03/29/21 12:47: WBC 19.7 H, RBC 4.28 L, Hgb 12.1 L, Hct 37.3 L, MCV 87.2, MCH 28.4, MCHC 32.5, RDW 14.1, Plt Count 341 D, MPV 7.9, Neut % (Auto) 87.3 H, Lymph % (Auto) 7.9 L, [place] % (Auto) 3.9, Eos % (Auto) 0.7, Baso % (Auto) 0.2, Neut # (Auto) 17.2 H, Lymph # (Auto) 1.6, [place] # (Auto) 0.8, Eos # (Auto) 0.1, Baso # (Auto) 0.1, Total Counted 100, Neutrophils % (Manual) 87 H, Lymphocytes % (Manual) 4 L, Atypical Lymphs % 1.0, Monocytes % (Manual) 7, Eosinophils % (Manual) 1, Platelet Estimate Normal, RBC Morphology Normal 03/29/21 12:47: Sodium 134 L, Potassium 3.6, Chloride 98, Carbon Dioxide 29, Anion Gap 10.6, BUN 10, Creatinine 0.50 L, Estimated Creat Clear 226, Estimated GFR 170, Est GFR ( Amer) 205, Glucose 94, Calcium 8.4, Total Bilirubin 0.9, AST 61 H, ALT 81 H, Alkaline Phosphatase 183 H, Total Protein 5.9 L, Albumin 3.1 L, Globulin 2.8, Albumin/Globulin Ratio 1.1, Amylase 113 H, Lipase 162 I & O for Last 24 hours: Intake & Output 03/27/21 03/28/21 03/29/21 03/30/21 11:59 11:59 11:59 11:59 Intake Total 2779 / 2779 1870 / 1870 1760 / 1760 720 / 720 Balance 2778
--- NOTE | 2021-03-29 08:30 | PC.NURSE ---
Rash noted on pt's entire back. Some bumps are slightly raised and appear to have had pustules that have popped.
--- NOTE | 2021-03-29 09:00 | PC.NURSE ---
Pt has finished drinking Oral Contrast. Radiology notified.
--- NOTE | 2021-03-29 10:33 | PC.NURSE ---
Pt taken to radiology via w/c and radiology staff x2 for CT.
--- NOTE | 2021-03-29 11:03 | PC.NURSE ---
Pt back from CT scan.
--- NOTE | 2021-03-29 12:44 | PC.NURSE ---
Lab personnel at to draw blood.
--- NOTE | 2021-03-29 12:44 | HMH.CONFU ---
Internal Medicine - PN: Subj *Date: 03/29/21 *Time: 12:44 Interval history: Patient is seen ambulating in his room sitting on the side of the bed. He reports improvement but not resolution of his abdominal pain. He reports it comes in waves. He is able to tolerate pain on oral pain medication and is working on eating and drinking more p.o. food and fluid. No fever over the weekend he is moving his bowels and urinating. Vital signs are stable. Repeat CT scan is essentially unchanged from previous but no interval worsening of pancreatitis. Awaiting follow-up labs. Exam Vital signs and Labs for Last 24 Hours: Temp Pulse Resp BP Pulse Ox 98.3 F 83 21 157/83 H 93 L 03/29/21 08:00 03/29/21 08:00 03/29/21 08:00 03/29/21 08:00 03/29/21 08:00 I & O for Last 24 hours: Intake & Output 03/27/21 03/28/21 03/29/21 03/30/21 11:59 11:59 11:59 11:59 Intake Total 2779 1870 1760 Balance 2779 1870 1760 Weight 107.218 kg 106.367 kg 101.69 kg Radiology Reports for the Last 24 Hours: PROCEDURE: CT ABDOMEN PELVIS WO/W CON CLINICAL INDICATION: f/u pancreatitis COMPARISON: CT CT ABDOMEN PELVIS WO/W CON from 03/24/2021 TECHNIQUE: IV Contrast: 75ML Isovue 370 Oral Contrast None Axial images obtained with sagittal and coronal reformats. All CT scans at the facility use one or more dose reduction, viz: automated exposure control, ma/kV adjustment per patient size (including targeted exams where dose is matched to indication, i.e. head), or iterative reconstruction technique. FINDINGS: LOWER THORAX: Small to moderate bilateral pleural effusions with adjacent compressive atelectasis. Atelectasis noted in the left lower lobe. Small pericardial effusion. ABDOMEN & PELVIS: The liver demonstrates no focal abnormality within the phase of IV contrast. Cholecystectomy is noted. No intra hepatic ductal dilation. The spleen is unremarkable. Both adrenal glands and kidneys demonstrate no focal abnormality. The pancreas appears edematous and demonstrates extensive peripancreatic fluid. No focal areas of hyperdensity noted on the precontrast images. No evidence of hypoenhancing areas noted within the pancreas. No evidence of pancreatic necrosis. The large and small bowel loops demonstrate no focal wall thickening, obstruction or adjacent inflammatory changes. The appendix is not visualized. No secondary signs of appendicitis noted. Small amount of free fluid is noted in the abdomen and pelvis. No evidence of free intraperitoneal air is noted. No significant mesenteric or retroperitoneal adenopathy. The prostate gland is unremarkable. Small bilateral fat containing inguinal hernias. Atherosclerotic vascular calcification of the abdominal aorta and its branches. Multilevel degenerative changes of the visualized lumbar spine. IMPRESSION: Findings are consistent with known pancreatitis. Free fluid in the abdomen and pelvis. No evidence of pancreatic necrosis. Bilateral pleural effusions and pericardial effusion, marginally worse compared to the prior study. Dictated by: Radha Alcala 03/29/2021 11:10 Radha Alcala in [facility] 03/29/2021 11:10 - Constitutional no acute distress, cooperative - *Routine HEENT Exam Head: Present: normocephalic, atraumatic Eye: Present: EOMI, PERRL ENT: Present: mucous membranes moist - *Routine Neck Exam Present: supple, full ROM - Routine Chest/Breast/Axilla Exam Chest wall: Absent: tenderness, mass - *Routine Respiratory Exam Present: CTA bilaterally. Absent: accessory muscle use, stridor, wheezes, crackles - *Routine Cardiovascular Exam Present: RRR, Normal S1, Normal S2 - *Routine Abdominal Exam Present: normoactive bowel sounds, tenderness, distended Comments: Mild distention with gas bloat. Mild tenderness palpation right upper quadrant - *Routine Extremities Exam Absent: cyanosis, clubbing, edema - *Routi
[2021-03-29 12:56] LABS: Basophils # 0.1 K/mm3 (0-0.2); Basophils % 0.2 % (0.1-2.0); Eosinophils # 0.1 K/mm3 (0.0-0.4); Eosinophils % 0.7 % (0.1-12.0); Hematocrit 37.3 % (42.0-52.0); Hemoglobin 12.1 g/dL (14.1-18.0); Lymphocytes # 1.6 K/mm3 (0.7-4.5); Lymphocytes % 7.9 % (10-50); Mean Corpuscular HGB Conc 32.5 g/dL (31.8-35.4); Mean Corpuscular Hemoglobin 28.4 pg (27.0-31.2); Mean Corpuscular Volume 87.2 fl (80-94); Mean Platelet Volume 7.9 fl (7.4-10.4); Monocytes # 0.8 K/mm3 (0.1-1.0); Monocytes % 3.9 % (1.7-9.3); Neutrophils # 17.2 K/mm3 (1.8-7.8); Neutrophils % 87.3 % (37.0-80.0); Platelet Count 341 K/mm3 (142-424); Red Blood Count 4.28 M/mm3 (4.60-6.20); Red Cell Distribution Width 14.1 % (11.5-17.5); White Blood Count 19.7 K/mm3 (4.8-10.8)
[2021-03-29 13:04] LABS: MANUAL DIFFERENTIAL MANUAL DIFFERENTIAL (MANUAL DIFF)
--- NOTE | 2021-03-29 13:08 | PC.NURSE ---
Pt up to shower at this time. Pt's assisting him. Bed linens changed.
[2021-03-29 13:27] LABS: Alanine Aminotransferase 81 U/L (12-78); Albumin Level 3.1 g/dl (3.5-5.0); Albumin/Globulin Ratio 1.1 (1.1-1.8); Alkaline Phosphatase 183 U/L (38-126); Amylase 113 U/L (30-110); Anion Gap 10.6 mEq/L (5-15); Aspartate Amino Transferase 61 U/L (17-59); Bilirubin,Total 0.9 mg/dl (0.2-1.3); Blood Urea Nitrogen 10 mg/dl (9-20); Calcium 8.4 mg/dl (8.4-10.2); Carbon Dioxide 29 mmol/L (22.0-30.0); Chloride 98 mmol/L (98-107); Creatinine Clearance Estimated 226 mL/min (50-200); Estimated Glomerular Filt Rate 170 ml/min (>60); GFR (African American) 205 ML/MIN (>60); Globulin 2.8 g/dL (1.3-3.2); Glucose 94 mg/dl (74-100); Lipase 162 U/L (23-300); Potassium 3.6 mmoL/L (3.5-5.1); Sodium 134 mmol/L (136-145); Total Protein,Serum 5.9 g/dl (6.3-8.2)
--- NOTE | 2021-03-29 13:30 | PC.NURSE ---
Pt up ambulating in hallway with his .
[2021-03-29 16:00] VITALS: BP 148/87; PULSE 82; RESP 18; TEMP 37; O2SAT 96
[2021-03-29 16:13] LABS: Eosinophils % 1 % (0-3); Lymphocytes % 4 % (10-50); Monocytes % 7 % (2-9); Neutrophils % 87 % (42-76); Total Cells Counted 100
[2021-03-29 16:14] LABS: Platelet Estimate Normal; RBC Morphology Normal
[2021-03-29 19:51] VITALS: BP 169/90; PULSE 89; RESP 18; O2SAT 98
[2021-03-29 20:00] VITALS: BP 166/94; PULSE 90; RESP 28; TEMP 36.8; O2SAT 96
[2021-03-30] VITALS: BP 158/76; PULSE 88; RESP 28; TEMP 37.5; O2SAT 96
--- NOTE | 2021-03-30 03:26 | PC.NURSE ---
Pt has c/o discomfort to abdomen this shift. Describes it as sharp pain. Has ambulated this shift. Tolerating diet. VSS. Lungs are CTA. BS active. No other concerns. Will continue to monitor.
[2021-03-30 04:00] VITALS: BP 153/80; PULSE 86; RESP 26; TEMP 37; O2SAT 93
[2021-03-30 05:00] VITALS: BMI 33.0
--- NOTE | 2021-03-30 07:56 | HMH.ACPN2 ---
<Adele Escobar - Last Filed: 03/30/21 08:35> Internal Medicine - PN: Subj *Date: 03/30/21 *Time: 08:35 Interval history: Patient states he had a good day yesterday. Pain is much less and periodic. He has been able to eat. No nausea or vomiting. Bowels have moved and are more normal. He is voiding QS. He ambulates and sits up in the chair without difficulty. He thinks he may go home today. Patient was seen by GI yesterday who reports CT scan essentially unchanged.. Urgent for patient to increase his p.o. intake with continued use of caloric supplements/shakes. White blood cell count yesterday was 19,700 with a hemoglobin of 12.1 and hematocrit of 37. 3. Blood chemistries reveal an AST of 61 ALT of 81, alkaline phosphatase 183. Was 113 and lipase was normal at 162. CT of abdomen/pelvis 03/29/2021 IMPRESSION: Findings are consistent with known pancreatitis. Free fluid in the abdomen and pelvis. No evidence of pancreatic necrosis. Bilateral pleural effusions and pericardial effusion, marginally worse compared to the prior study. Exam Vital signs and Labs for Last 24 Hours: Temp Pulse Resp BP Pulse Ox 98.6 F 86 26 H 153/80 H 93 L 03/30/21 04:00 03/30/21 04:00 03/30/21 04:00 03/30/21 04:00 03/30/21 04:00 Laboratory Results - last 24 hr 03/29/21 12:47: WBC 19.7 H, RBC 4.28 L, Hgb 12.1 L, Hct 37.3 L, MCV 87.2, MCH 28.4, MCHC 32.5, RDW 14.1, Plt Count 341 D, MPV 7.9, Neut % (Auto) 87.3 H, Lymph % (Auto) 7.9 L, [place] % (Auto) 3.9, Eos % (Auto) 0.7, Baso % (Auto) 0.2, Neut # (Auto) 17.2 H, Lymph # (Auto) 1.6, [place] # (Auto) 0.8, Eos # (Auto) 0.1, Baso # (Auto) 0.1, Total Counted 100, Neutrophils % (Manual) 87 H, Lymphocytes % (Manual) 4 L, Atypical Lymphs % 1.0, Monocytes % (Manual) 7, Eosinophils % (Manual) 1, Platelet Estimate Normal, RBC Morphology Normal 03/29/21 12:47: Sodium 134 L, Potassium 3.6, Chloride 98, Carbon Dioxide 29, Anion Gap 10.6, BUN 10, Creatinine 0.50 L, Estimated Creat Clear 226, Estimated GFR 170, Est GFR ( Amer) 205, Glucose 94, Calcium 8.4, Total Bilirubin 0.9, AST 61 H, ALT 81 H, Alkaline Phosphatase 183 H, Total Protein 5.9 L, Albumin 3.1 L, Globulin 2.8, Albumin/Globulin Ratio 1.1, Amylase 113 H, Lipase 162 I & O for Last 24 hours: Intake & Output 03/27/21 03/28/21 03/29/21 03/30/21 11:59 11:59 11:59 11:59 Intake Total 2779 / 2779 1870 / 1870 1760 / 1760 720 / 720 Balance 2779 / 2779 1870 / 1870 1760 / 1760 720 / 720 Weight 236 lb 6 oz 234 lb 8 oz 224 lb 3 oz 223 lb 2 oz - Constitutional no acute distress Comments: Sitting up in recliner. - *Routine Respiratory Exam Present: crackles (Bilateral bases greater on the left) - *Routine Cardiovascular Exam Present: RRR - *Routine Abdominal Exam Present: soft, normoactive bowel sounds, tenderness, distended - *Routine Extremities Exam Absent: edema, calf tenderness - *Routine Neurological Exam Present: alert, oriented X3 Assessment and Plan (1) Acute pancreatitis Status: Acute Qualifiers: Pancreatitis type: unspecified pancreatitis type Acute pancreatitis complication: no infection or necrosis Qualified Code(s): K85.90 - Acute pancreatitis without necrosis or infection, unspecified Category: Medical Code(s): K85.90 - Acute pancreatitis without necrosis or infection, unspecified (2) Hypertension Status: Acute Category: Medical Code(s): I10 - Essential (primary) hypertension (3) GERD (gastroesophageal reflux disease) Status: Acute Category: Medical Code(s): K21.9 - Gastro-esophageal reflux disease without esophagitis (4) Hyperlipidemia Status: Chronic Qualifiers: Hyperlipidemia type: mixed hyperlipidemia Qualified Code(s): E78.2 - Mixed hyperlipidemia Category: Medical Code(s): E78.5 - Hyperlipidemia, unspecified (5) Ileus Status: Acute Category: Medical Code(s): K56.7 - Ileus, unspecified (6) Pleural effusion Status: Acute Category: Medi
[2021-03-30 08:00] VITALS: BP 142/76; PULSE 92; RESP 24; TEMP 36.6; O2SAT 98
--- NOTE | 2021-04-02 16:36 | HMH.DCSUM ---
General - General Admission date:: 03/22/21 <Brody Aguilera - 05/08/21 14:36> 03/22/21 <Kimberlee Philip - 04/02/21 16:45> Discharge date: 03/30/21 <Kimberlee Philip - 04/02/21 16:45> HPI HPI: Mr. Sullivan is a 60-year-old male with a history of gallstone pancreatitis, chronic neck/shoulder pain, hyperglycemia, hypertension, hyperlipidemia, varicose veins, GERD, left rotator cuff tear, and presbycusis with hearing aids who presented to [facility] emergency room for evaluation with acute abdominal pain. He states that when going on vacation on 03/20/2021 he had a sudden onset of severe right upper quadrant pain. He stated that he turned around and presented to [facility] emergency room with severe pain and vomiting. Imaging revealed a 6 mm CBD stone and pancreatitis. Lipase levels were over 32,000 with white blood cell count of 14,900, alkaline phosphatase of 134, CK of 912 and glucose of 180. He was then sent to [facility] where he was accepted by GI, Dr. Madden. He was given lactated Ringer's, Zofran, Dilaudid and morphine. He underwent ERCP on 03/21/2021 which did not reveal any obstructing stones. Suspicion was that he had passed the stone prior to the procedure. Symptoms improved while there. He had a bowel movement and was able to tolerate liquid diet. Lipase was less than 1000 in the p.m. of that date with a bilirubin of 1.9. Other labs at [facility] showed a sodium of 134 and potassium of 4.4, BUN was 19 and creatinine 0.74. Glucose was 143 calcium was 8.1. A1c was noted to be 5.3. SGPT was 44 and SGOT was 54. Bilirubin was 1.9. Lipase was 744. Patient was then discharged home on clear liquids for the upcoming 2 days. He then began to experience the right upper quadrant pain which worsened on 03/22/2021. He again presented to the emergency room at [facility] for further treatment. With evaluation in the [facility] emergency room he had a repeat CT of the abdomen/pelvis which showed acute pancreatitis , Small volume of abdominal and pelvic ascites, and minor bibasilar pleural fluid and atelectasis. White blood cell count was 17,700, Bilirubin 1.5, AST 71, ALT 127, alkaline phosphatase 145. Amylase was 427 with a lipase of 332. He received a liter of IV fluids along with Pepcid, Dilaudid, Ketorolac, 125 of Solu-Medrol, Reglan, Phenergan and then was admitted . This a.m. he states he did sleep some. He has required pain medicine throughout the night. He has minimal nausea. This a.m. electrolytes are satisfactory. AST is decreased to 51 with an ALT of 93. Lipase is now normal at 172. <Kimberlee Philip - 04/02/21 16:45> Hospital Course Hospital Course: The patient was admitted and started on IV fluids. His pain medication dose frequency was increased and he was continued on antiemetics. The patient continued with severe pain that was radiating through to his back and he continued to vomit. He was unable to rest or get comfortable. The patient's pain medication was changed from Dilaudid to morphine and a repeat CT scan was ordered. His repeat CT showed no significant change in the findings compatible with acute pancreatitis with phlegmonous changes and peripancreatic effusions. Dr. De La Fuente increased the patient's morphine dose and scheduled him on Klonopin and Phenergan. He also added sublingual hyoscyamine to relieve spasm. By 03/25/2021, the patient was feeling a little bit better. His labs were improving. Ice chips were added. He continued to require [id number] pain medication. Dr. Causey was consulted and felt the patient had moderate acute gallstone pancreatitis. He recommended pain control as well as nutritional counseling and initiation of Ensure. He also recommended serial CT scans of the abdomen. The patient did began began having some episodes of confusion and hallucinations and his thought this was related to his morphine. He was started on a di
== END 2021-03-30 10:25 | disposition home or self-care (01) | DRG 439 ==
LOC: ER 19:30 → 2ND 21:48
PROVIDERS: Nurse Practitioner Family; Admitting Provider Family Medicine; Emergency Provider Emergency Medicine; PCP Family Medicine; Visit Provider Family Medicine
DX: K85.90 Acute pancreatitis without necrosis or infection, unspecified (principal); K56.7 Ileus, unspecified; J90 Pleural effusion, not elsewhere classified; I25.10 Atherosclerotic heart disease of native coronary artery without angina pectoris; I10 Essential (primary) hypertension; K21.9 Gastro-esophageal reflux disease without esophagitis; Z88.0 Allergy status to penicillin; Z88.2 Allergy status to sulfonamides; Z88.8 Allergy status to other drugs, medicaments and biological substances; Z79.899 Other long term (current) drug therapy; E78.2 Mixed hyperlipidemia; Z87.891 Personal history of nicotine dependence; Z91.040 Latex allergy status; G89.29 Other chronic pain; M54.2 Cervicalgia; M25.519 Pain in unspecified shoulder
CPT/HCPCS: 36415; 74177; 74178; 80053; 82150; 82550; 83690; 84145; 85007; 85025; 85651; 86140; 96365; 96375; 99284; J2405; Q9967; U0003

== ENCOUNTER → 2021-04-22 09:40 | Outpatient (CLI) | payer MEDICARE, SELFPAY ==
--- NOTE | 2021-04-22 09:55 | CT_ITS ---
PROCEDURE: CT ABDOMEN PELVIS WO/W CON CLINICAL INDICATION: ACUTE PANCREATITIS Follow-up acute pancreatitis COMPARISON: CT CT ABDOMEN PELVIS WO/W CON from 03/24/[address] ABDOMEN PELVIS WO/W CON from 03/29/2021 TECHNIQUE: IV Contrast: 75ML Isovue 370 Oral Contrast 450ml Redicat Axial images obtained with sagittal and coronal reformats. All CT scans at the facility use one or more dose reduction, viz: automated exposure control, ma/kV adjustment per patient size (including targeted exams where dose is matched to indication, i.e. head), or iterative reconstruction technique. FINDINGS: LOWER THORAX: The small bilateral pleural effusions have resolved. ABDOMEN & PELVIS: The liver, adrenal glands, and kidneys have an unremarkable appearance. There is heterogeneous enhancement of the spleen on the 60 second images which may be related to differential enhancement as opposed underlying splenic pathology. There remains diffuse enlargement of the pancreas with phlegmonous changes around the pancreatic head and developing pseudocysts along the tail the pancreas and posterior aspect of the body of the stomach. The pseudo cyst measures 8.5 x 7 cm. The splenic artery is along the undersurface of the pseudo cyst. Heterogeneous areas of soft tissue density are present along the inferior aspect of the body of the pancreas and anterior to the pancreatic head consistent with phlegmonous changes. No intestinal obstruction or free air. No evidence of appendicitis or diverticulitis. Fluid is present along the anterior pararenal fascia. No pelvic mass or abnormal fluid collection. There is a small left inguinal hernia containing fat. IMPRESSION: Findings compatible with acute pancreatitis. There is developing pseudo cyst in the left upper quadrant. Overall, the phlegmonous changes may be slightly improved. Suspect developing pseudo cyst along the anterior pararenal fascia on the left. This is not yet completely liquified. No convincing evidence of pancreatic necrosis. Interval resolution of bilateral pleural effusions Dictated by: Nakul Colvin MD 04/22/2021 13:29 Nakul Colvin MD in [facility] 04/22/2021 13:29
--- NOTE | 2021-04-22 09:56 | XR_ITS ---
PROCEDURE: XR CERVICAL SPINE 5V CLINICAL INDICATION: CERVICAL RADICULOPATHY COMPARISON: CR XR CERVICAL SPINE 5V from 01/01/2021 FINDINGS: Normal alignment. No acute fracture or dislocation. Mild degenerative disc disease at C5-C6 with moderate degenerative disc disease at C6-C7 with endplate hypertrophic change. Anterior spurs are present at C5-C6 and C6-C7. Nuchal ligament calcification noted posteriorly at C6 and C7 versus an old spinous process fracture at the posterior aspect of C7. These findings are not significantly changed. There is mild foraminal narrowing on the bilaterally at C5-C6 with moderate foraminal narrowing bilaterally at C6-C7. Facet hypertrophic changes are noted on the left at C3-C4. There is some carotid artery calcification noted on the right. No evidence of cervical rib. IMPRESSION: Degenerative changes are present of the cervical spine similar to the previous exam. Please see above for detail. Dictated by: Nakul Colvin MD 04/22/2021 10:16 Nakul Colvin MD in [facility] 04/22/2021 10:16
[2021-04-22 10:20] LABS: Blood Urea Nitrogen 26 mg/dl (9-20); Estimated Glomerular Filt Rate 76 ml/min (>60); GFR (African American) 92 ML/MIN (>60)
== END ==
PROVIDERS: PCP Family Medicine; Visit Provider Family Medicine
DX: K85.90 Acute pancreatitis without necrosis or infection, unspecified (principal); M54.12 Radiculopathy, cervical region
CPT/HCPCS: 36415; 72050; 74178; 82565; 84520; Q9967

== ENCOUNTER → 2021-05-05 08:40 | Outpatient (CLI) | payer MEDICARE, SELFPAY ==
--- NOTE | 2021-05-05 08:44 | MR_ITS ---
PROCEDURE: MR ABDOMEN WO CON CLINICAL INDICATION: PSEUDOCYST OF PANCREAS AND PANCREATITIS COMPARISON: CT CT ABDOMEN PELVIS WO/W CON from 04/22/2021 TECHNIQUE: Routine multiplanar multi echo sequences are performed without gadolinium enhancement. FINDINGS: Pancreatic fluid collection consistent with pseudocyst involving tail of pancreas again noted. There is slight interval decrease in size compared to most recent prior CT, now measuring about 6.5 centimeters x 5.5 centimeters. No evidence for pancreatic necrosis. Phlegmonous change about the pancreas again noted. MRCP images show no focal abnormality. Gallbladder surgically absent. Some diffuse fatty infiltration of the liver. Single tiny right renal cortical cyst. Spleen is normal. Adrenal glands are normal. No upper abdominal lymphadenopathy. Left kidney is normal. Trace bilateral pleural effusions. Visualized large and small bowel are normal. IMPRESSION: Pancreatic pseudocyst involving tail pancreas again noted with slight interval decrease in size compared to most recent prior CT. Phlegmonous change about the pancreas again noted. MRCP images show no focal abnormality. No evidence for common bile duct stone. Some diffuse fatty infiltration of the liver. Dictated by: Douglas Medeiros MD 05/05/2021 11:09 Douglas Medeiros MD in [facility] 05/05/2021 11:09
== END ==
PROVIDERS: PCP Family Medicine; Visit Provider Nurse Practitioner Family
DX: K85.90 Acute pancreatitis without necrosis or infection, unspecified (principal); K86.3 Pseudocyst of pancreas
CPT/HCPCS: 74181; 76376

== ENCOUNTER → 2021-09-27 08:20 | Outpatient (CLI) | payer MEDICARE, SELFPAY ==
--- NOTE | 2021-09-27 08:24 | CT_ITS ---
PROCEDURE: CT ABDOMEN WO/W CON CLINICAL HISTORY: PSEUDOCYST OF PANCREAS,PANCREATITIS,PERIUMBILICAL PAIN previously at approximately 6.7 cm. COMPARISON: CT CT ABDOMEN PELVIS WO/W CON from 04/22/2021 MR MR ABDOMEN WO CON from 05/05/2021 TECHNIQUE: 75 mL Isovue 370 Axial images obtained with sagittal and coronal reformats. All CT scans at the facility use one or more dose reduction, viz: automated exposure control, ma/kV adjustment per patient size (including targeted exams where dose is matched to indication, i.e. head), or iterative reconstruction technique. FINDINGS: There is borderline splenomegaly at 13 cm. No focal liver lesion. Prior cholecystectomy. The adrenal glands have an unremarkable appearance. No renal or ureteral calculi. Fluid density once again noted at the pancreatic tail measuring 6 cm transverse and 4.3 cm AP. Previously this measured 8 x 5 cm. This is consistent with a pancreatic pseudo cyst. An additional small pseudo cyst is noted a anterior to the pancreatic head at 2.6 cm. Small collection extends from this region toward the left. Phlegmonous changes were present in this area on the previous CT scan. A 5 by 1.7 cm collection is noted along the left anterior pararenal fascia and has decreased since the previous exam. An additional small pseudo cyst noted along the anterior pararenal fascia on the left medially at 2.7 cm also decreased since the previous exam. Previously noted phlegmonous changes in the peripancreatic region and along the anterior aspect of the left para renal fascia have improved. No other significant anomalies evident. There are degenerative changes in the lumbar spine with fusion of the right SI joint. IMPRESSION: 1. Pancreatic pseudo cysts are present as described above. The phlegmonous changes of acute pancreatitis has improved since the previous exam. 2. Borderline splenomegaly Dictated by: Nakul Colvin MD 09/28/2021 08:05 Nakul Colvin MD in [facility] 09/28/2021 08:05
[2021-09-27 10:15] LABS: Blood Urea Nitrogen 19 mg/dl (9-20); Estimated Glomerular Filt Rate 115 ml/min (>60); GFR (African American) 139 ML/MIN (>60)
== END ==
PROVIDERS: PCP Family Medicine; Visit Provider Internal Medicine Gastroenterology
DX: K86.3 Pseudocyst of pancreas (principal); K85.90 Acute pancreatitis without necrosis or infection, unspecified; R10.33 Periumbilical pain
CPT/HCPCS: 36415; 74170; 82565; 84520; Q9967

== ENCOUNTER → 2021-10-19 15:14 | Outpatient (CLI) | payer MEDICARE, SELFPAY | PROVIDERS: Visit Provider Internal Medicine Gastroenterology | DX: Z01.812 Encounter for preprocedural laboratory examination (principal); Z20.822 Contact with and (suspected) exposure to COVID-19 | CPT/HCPCS: C9803; U0003; U0005 ==

== ENCOUNTER → 2021-10-29 14:12 | Outpatient (CLI) | payer MEDICARE, SELFPAY ==
--- NOTE | 2021-10-29 14:12 | CA_ITS ---
APPROVED REPORT EXAM: Comprehensive 2D, Doppler, and color-flow Echocardiogram Test Lead: Lisette Robertson CRT Ht: 5 ft 8 in Wt: 217lbs BSA: 2.12 BP: 141/85 mmHg Indications: Peripheral Edema, CAD, Cardiomyopathy, Hypertension/HDD, Echo 30% 03/16/20 2D Dimensions LVOT 1.99 cm (M/F) 1.5-2.5 LA Volume 44.70 mL LA Volume Index 21.10 mL/m2 (M/F) 16-34 M-Mode Dimensions RVDd 3.83 cm (0.9-2.6) LA Diam 3.76 cm (1.9-4.0) LVDd 4.23 cm (3.5-5.7) Ao Diam 3.40 cm (2.0-3.7) LVDs 2.90 cm (3.5-5.7) IVSd 1.47 cm (0.6-1.1) PWd 0.61 cm (0.6-1.1) EF (Teich) 59.70% FS 31.40% EDV (Teich) 79.90 mL TAPSE 2.38 (<1.7) ESV (Teich) 32.20 mL LV Diastology E Decel Time 137.00 (160-240 msec) E/A Ratio 0.68 MED E' 7.60 (< 7 cm/sec) MED A' 9.10 cm/s E'/MED E' Ratio 7.30 (>14) LAT E' 7.00 (<10 cm/sec) LAT A' 12.70 cm/s E/LAT E' Ratio 7.93 (>14) Aortic Valve AO Peak GR. 9.70 mmHg Mitral Valve MV A Velocity 82.00 (40-130 cm/s) E/A Ratio 0.68 MV Decel. Time 137.00 (160-240 ms) Pulmonary Valve PV Peak Velocity 113.00 (50-150 cm/s) Tricuspid Valve TR P. Velocity 205.00 cm/s RAP Estimate 10.00 mmHg RVSP 26.80 mmHg Left Ventricle Left atrium is mildly enlarged, left ventricle is normal size, mild concentric left ventricular hypertrophy, visually estimated ejection fraction 55% with no regional wall motion abnormality, grade 1 diastolic dysfunction seen without tissue Doppler evidence of raise left atrial pressure. Right Ventricle Right atrium and right ventricle mildly enlarged with normal contractility. Aortic Valve Aortic valve is minimally thickened and fibrosed, there is no aortic stenosis or aortic insufficiency. Mitral Valve Mitral valve grossly normal, there is trace mitral regurgitation. Tricuspid Valve Tricuspid valve grossly normal, there is trace tricuspid regurgitation, tricuspid regurgitation jet velocity is inadequate for calculation of the right ventricular systolic pressure. Pulmonic Valve Pulmonic valve is poorly visualized. Great Vessels Aortic root is normal size. Inferior vena cava normal size with normal inspiratory collapse. Pericardium No significant pericardial effusion noted. Conclusion 1. Mild biatrial normal, normal left ventricular size, mild concentric left ventricular hypertrophy, visually estimated ejection fraction 55% with no regional wall motion abnormality, grade 1 diastolic dysfunction seen without tissue Doppler evidence of raise left atrial pressure. 2. Mildly enlarged right ventricle with normal contractility. 3. Trace mitral and tricuspid regurgitation. 4. No significant pericardial effusion noted. 5. Inferior vena cava normal size with normal inspiratory collapse. Electronically signed by : Dar Morales MD 10/29/2021 16:13:57
== END ==
PROVIDERS: PCP Family Medicine; Visit Provider Nurse Practitioner Family
DX: E78.2 Mixed hyperlipidemia (principal); I11.9 Hypertensive heart disease without heart failure; I25.10 Atherosclerotic heart disease of native coronary artery without angina pectoris; I42.9 Cardiomyopathy, unspecified; K21.9 Gastro-esophageal reflux disease without esophagitis; M62.82 Rhabdomyolysis
CPT/HCPCS: 93306

== ENCOUNTER → 2021-12-30 15:42 | Outpatient (CLI) | payer MEDICARE, SELFPAY | PROVIDERS: Visit Provider Nurse Practitioner | DX: Z20.822 Contact with and (suspected) exposure to COVID-19 (principal) | CPT/HCPCS: C9803; U0003; U0005 ==

== ENCOUNTER → 2022-05-24 07:42 | Outpatient (CLI) | payer MEDICARE, SELFPAY ==
[2022-05-24 14:20] LABS: Basophils # 0.1 K/mm3 (0-0.2); Basophils % 0.9 % (0.1-2.0); Eosinophils # 0.3 K/mm3 (0.0-0.4); Eosinophils % 4.5 % (0.1-12.0); Hematocrit 43.3 % (42.0-52.0); Hemoglobin 14.7 g/dL (14.1-18.0); Lymphocytes # 2.9 K/mm3 (0.7-4.5); Lymphocytes % 40.4 % (10-50); Mean Corpuscular Hemoglobin 28.4 pg (27.0-31.2); Mean Corpuscular Volume 83.5 fl (80-94); Mean Platelet Volume 7.9 fl (7.4-10.4); Monocytes # 0.5 K/mm3 (0.1-1.0); Monocytes % 6.6 % (1.7-9.3); Neutrophils # 3.5 K/mm3 (1.8-7.8); Neutrophils % 47.7 % (37.0-80.0); Platelet Count 301 K/mm3 (142-424); Red Blood Count 5.18 M/mm3 (4.60-6.20); Red Cell Distribution Width 13.3 % (11.5-17.5); White Blood Count 7.2 K/mm3 (4.8-10.8)
[2022-05-24 14:28] LABS: Alanine Aminotransferase 43 U/L (12-78); Albumin Level 4.1 g/dl (3.5-5.0); Alkaline Phosphatase 127 U/L (38-126); Anion Gap 13.2 mEq/L (5-15); Aspartate Amino Transferase 39 U/L (17-59); Bilirubin,Unconjugated 0.4 mg/dL (0.0-1.1); Blood Urea Nitrogen 19 mg/dl (9-20); Calcium 9.3 mg/dl (8.4-10.2); Carbon Dioxide 27 mmol/L (22.0-30.0); Chloride 103 mmol/L (98-107); Cholesterol 206 mg/dl (140-200); Estimated Glomerular Filt Rate 114 ml/min (>60); GFR (African American) 138 ML/MIN (>60); Glucose 101 mg/dl (74-100); HDL Cholesterol 23 mg/dl (40-60); Magnesium 1.5 mg/dl (1.6-2.3); Potassium 4.2 mmoL/L (3.5-5.1); Sodium 139 mmol/L (136-145); Total Protein,Serum 6.9 g/dl (6.3-8.2)
[2022-05-24 14:39] LABS: Bilirubin,Total < 0.1 mg/dl (0.2-1.3); Direct LDL Cholesterol 79.82 mg/dL (100-129); Triglycerides 479 mg/dl (30-150)
[2022-05-24 14:42] LABS: Free T4 (Free Thyroxine) 1.27 ng/dl (0.78-2.19)
[2022-05-24 14:58] LABS: Thyroid Stimulating Hormone 0.95 uIU/mL (0.465-4.68)
[2022-05-24 21:12] LABS: Bilirubin,Direct 0.2 mg/dl (0.0-0.4); Bilirubin,Indirect 0.2 mg/dL (0.0-0.9)
== END ==
PROVIDERS: Visit Provider Nurse Practitioner Family
DX: E78.5 Hyperlipidemia, unspecified (principal); I11.9 Hypertensive heart disease without heart failure; I25.10 Atherosclerotic heart disease of native coronary artery without angina pectoris; K21.9 Gastro-esophageal reflux disease without esophagitis; M62.82 Rhabdomyolysis
CPT/HCPCS: 36415; 80048; 80061; 80076; 83735; 84439; 84443; 85025

== ENCOUNTER → 2022-06-22 12:10 | Outpatient (CLI) | payer MEDICARE, SELFPAY ==
[2022-06-22 12:45] LABS: Basophils # 0.1 K/mm3 (0-0.2); Basophils % 1.5 % (0.1-2.0); Eosinophils # 0.3 K/mm3 (0.0-0.4); Eosinophils % 4.7 % (0.1-12.0); Hematocrit 45.1 % (42.0-52.0); Hemoglobin 14.3 g/dL (14.1-18.0); Lymphocytes # 2.1 K/mm3 (0.7-4.5); Lymphocytes % 30.2 % (10-50); Mean Corpuscular HGB Conc 31.7 g/dL (31.8-35.4); Mean Corpuscular Hemoglobin 27.9 pg (27.0-31.2); Mean Corpuscular Volume 87.8 fl (80-94); Monocytes # 0.5 K/mm3 (0.1-1.0); Monocytes % 7.3 % (1.7-9.3); Neutrophils # 3.9 K/mm3 (1.8-7.8); Neutrophils % 56.2 % (37.0-80.0); Platelet Count 256 K/mm3 (142-424); Red Blood Count 5.13 M/mm3 (4.60-6.20); Red Cell Distribution Width 14.1 % (11.5-17.5)
== END ==
PROVIDERS: PCP Family Medicine; Visit Provider Nurse Practitioner Family
DX: Z20.828 Contact with and (suspected) exposure to other viral communicable diseases (principal)
CPT/HCPCS: 36415; 85025; 87275; 87276; C9803; U0003; U0005

== ENCOUNTER 2022-09-19 13:32 | Emergency (ER) | payer MEDICARE, SELFPAY ==
[2022-09-19 13:32] VITALS: BP 130/93; PULSE 69; RESP 16; TEMP 37.1; O2SAT 98; BMI 32.2
--- NOTE | 2022-09-19 13:59 | XR_ITS ---
FINAL REPORT CLINICAL HISTORY: left shoulder pain- felt pop and pain since FINDINGS: LEFT SHOULDER Three views demonstrate changes from left shoulder arthroplasty. There is lucency adjacent to the proximal aspect of the humeral component up to 8 mm. There are mild AC joint degenerative changes. There is a 10 mm calcification adjacent to the superior glenohumeral joint. No acute bony abnormality is identified. IMPRESSION: Lucency adjacent to the superior aspect of the humeral component of the shoulder arthroplasty. Loosening cannot be excluded. May also be related to foreign body reaction. Reviewed, Interpreted and Dictated by Flavio Stone III, MD Transcribed by Lv Harper Authenticated and [facility]
--- NOTE | 2022-09-19 13:59 | HMH.EDGENADL ---
Discharge Plan Disposition Patient Disposition: Home, Self-Care Condition: Good Chief Complaint: PAIN Prescriptions Prescriptions: No Action furosemide [Lasix] 40 mg tablet 40 mg PO DAILY diclofenac sodium 75 mg tablet,delayed release (DR/EC) 75 mg PO BID omeprazole 20 mg capsule,delayed release(DR/EC) 20 mg PO DAILY cyclobenzaprine 10 mg tablet 10 mg PO DAILY Creon 36,000-114,000- 180,000 unit capsule,delayed release(DR/EC) 2 cap PO DAILY dicyclomine 10 mg capsule 10 mg PO QID losartan 25 mg tablet 25 mg PO DAILY Qty: 90 3RF bisoprolol fumarate 10 mg tablet 10 mg PO HS Qty: 90 3RF aspirin 81 mg tablet,delayed release (DR/EC) 81 mg PO DAILY Qty: 100 3RF gabapentin 300 MG capsule 300 mg PO BID montelukast 10 MG tablet 10 mg PO DAILY acetaminophen 650 MG tablet extended release 650 mg PO BIDP PRN (Reason: PAIN) Referrals Follow up/Referrals: Brody Aguilera MD [Primary Care Provider] - See instructions Jovan Walker MD [Physician] - See instructions Activity Restrictions/Add. Instructions Additional Instructions/Restrictions: Follow up with orthopedics for evaluation of the shoulder pain. Recommend the muscle relaxers as needed on top of Tylenol and naproxen for pain. Do not drive or operate machinery while using the muscle relaxers and return to the ER for any new or worsening symptoms. Clinical Impressions Clinical Impression: Strain of left trapezius muscle, Chronic left shoulder pain Instructions Patient Instructions: DI for Muscle Strain, DI for Chronic Pain -- Adult Discharge ED Provider: Avinash Jackson Adult HPI General Chief complaint: PAIN Stated complaint: Lt shoulder pain, sent by Ale Time Seen by Provider: 09/19/22 13:44 Mode of Arrival: Ambulatory Source of Information: Patient Limitations: No Limitations Description of Symptoms (Recalled from ER Triage Doc. by RN): PT advises he had a shoulder replacement in 2016 and on he picked up something with his left hand and has been in severe pain in the shoulder ever since then. He has seen his PCP and tried multiple pain relief techniques but nothing has helped. 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 States that he tried to abduct his arm and set a drink down on the table when he had severe pain in the shoulder and has progressively worsened worsen with any type of movement even involving his left trapezius and lateral neck muscles. Making it difficult to lay flat and he is unable to use his arm due to pain he does not have any weakness or numbness to the elbow or hand. He has not fallen or had any trauma. His orthopedic surgeon has retired and his orthopedic group was in [place] and he is currently in the process of trying to get in with orthopedic surgeon in this region. Related Data Home Medications Medication Instructions Recorded Confirmed diclofenac sodium 75 mg 75 mg PO BID PAIN/INFLAMMATION 03/24/20 04/26/22 tablet,delayed release furosemide 40 mg tablet (Lasix) 40 mg PO DAILY Heart failure 03/24/20 04/26/22 gabapentin 300 mg capsule 300 mg PO BID pain 03/22/21 04/26/22 acetaminophen 650 mg 650 mg PO BIDP PRN PAIN 03/23/21 04/26/22 tablet,extended release montelukast 10 mg tablet 10 mg PO DAILY allergies 03/23/21 04/26/22 dicyclomine 10 mg capsule 10 mg PO QID 10/26/21 04/26/22 cyclobenzaprine 10 mg tablet 10 mg PO DAILY 04/26/22 04/26/22 osvdds-[id number]-isdetji 2 cap PO DAILY 04/26/22 04/26/22 36,000-114,000-180,000 unit capsule,delay rel (Creon) omeprazole 20 mg capsule,delayed 20 mg PO DAILY 04/26/22 04/26/22 release Previous Rx's Medication Instructions Recorded aspirin 81 mg tablet,delayed 81 mg PO DAILY heart [facility] 08/19/19 release tabs bisoprolol fumarate 10
--- NOTE | 2022-09-19 14:09 | PC.NURSE ---
PT TO XR
--- NOTE | 2022-09-19 15:01 | PC.NURSE ---
called rad to check on shoulder read. also advised pt still in pain, notified
--- NOTE | 2022-09-19 15:07 | PC.NURSE ---
provided pt with warm blanket to lay on his shoulder to try and help with pain. No other needs at this time
[2022-09-19 15:28] VITALS: BP 105/82; PULSE 67; RESP 22; O2SAT 96
[2022-09-19 16:23] VITALS: BP 106/86; PULSE 68; RESP 18; TEMP 36.6; O2SAT 99
== END 2022-09-19 16:48 | disposition home or self-care (01) ==
PROVIDERS: Emergency Provider Student in an Organized Health Care Education/Training Program; PCP Family Medicine
DX: S46.812A Strain of other muscles, fascia and tendons at shoulder and upper arm level, left arm, initial encounter (principal); G89.29 Other chronic pain; M54.2 Cervicalgia; I11.9 Hypertensive heart disease without heart failure; E78.5 Hyperlipidemia, unspecified; M79.10 Myalgia, unspecified site; Z79.1 Long term (current) use of non-steroidal anti-inflammatories (NSAID); Z79.82 Long term (current) use of aspirin; Z79.899 Other long term (current) drug therapy; Z88.0 Allergy status to penicillin; Z88.2 Allergy status to sulfonamides; Z88.5 Allergy status to narcotic agent; Z88.8 Allergy status to other drugs, medicaments and biological substances; Z91.040 Latex allergy status; Z91.048 Other nonmedicinal substance allergy status
CPT/HCPCS: 73030; 99283

== ENCOUNTER → 2022-09-26 07:18 | Outpatient (CLI) | payer MEDICARE, SELFPAY | PROVIDERS: PCP Family Medicine; Visit Provider Family Medicine | DX: M25.512 Pain in left shoulder (principal) ==

== ENCOUNTER 2022-10-18 07:00 | Outpatient (RCR) | payer MEDICARE, SELFPAY | END 2022-11-08 17:00 | disposition home or self-care (01) | LOC: PT.CARL 07:00 | PROVIDERS: PCP Family Medicine; Visit Provider Family Medicine Sports Medicine | DX: M25.512 Pain in left shoulder (principal); M75.82 Other shoulder lesions, left shoulder; Z96.612 Presence of left artificial shoulder joint | CPT/HCPCS: 97010; 97110; 97163 ==

== ENCOUNTER → 2022-11-24 07:53 | Outpatient (CLI) | payer MEDICARE, SELFPAY ==
--- NOTE | 2022-11-24 07:59 | CA_ITS ---
FINAL REPORT TECHNIQUE: Grayscale, color Doppler and duplex Doppler ultrasound of the kidneys, aorta and renal arteries was performed. Multiple velocities were measured. CLINICAL HISTORY: Hypertension COMPARISON: None FINDINGS: Aorta velocity: 93 cm/sec Right kidney: 10.6 cm. No evidence of hydronephrosis or mass. Right intrarenal RI: 1.6 Right renal artery velocity: 151 cm/sec. Right RAR (Renal artery-Aortic Ratio): 0.44 - 0.65, normal Left Kidney: 12.8 cm. No evidence of hydronephrosis or mass. Left intrarenal RI: 1.9 Left renal artery velocity: 178 cm/sec. Left RAR (Renal Artery-Aortic Ratio): 0.47 - 0.61, normal IMPRESSION: Less than 50% bilateral renal artery stenosis. Reviewed, Interpreted and Dictated by Varinder Hutton MD Transcribed by Destiny Tineo Authenticated and [facility]
--- NOTE | 2022-11-24 08:39 | US_ITS ---
FINAL REPORT TECHNIQUE: Ultrasound images of the kidneys and bladder were obtained. CLINICAL HISTORY: Hypertension, somnolence COMPARISON: None FINDINGS: The right kidney measures 10 cm in length. It is normal in echogenicity. There is no hydronephrosis. The left kidney measures 11 cm in length. It is normal in echogenicity. There is no hydronephrosis. The urinary bladder is unremarkable. IMPRESSION: Unremarkable renal ultrasound. Reviewed, Interpreted and Dictated by Varinder Hutton MD Transcribed by Destiny Tineo Authenticated and [facility]
== END ==
PROVIDERS: PCP Family Medicine; Visit Provider Nurse Practitioner
DX: E78.2 Mixed hyperlipidemia (principal); I10 Essential (primary) hypertension; I25.10 Atherosclerotic heart disease of native coronary artery without angina pectoris; I42.9 Cardiomyopathy, unspecified; R40.0 Somnolence
CPT/HCPCS: 76770; 93976

== ENCOUNTER → 2022-12-30 18:15 | Outpatient (CLI) | payer MEDICARE, SELFPAY | PROVIDERS: PCP Family Medicine; Visit Provider Nurse Practitioner | DX: G47.33 Obstructive sleep apnea (adult) (pediatric) (principal); R40.0 Somnolence; I42.9 Cardiomyopathy, unspecified; I25.10 Atherosclerotic heart disease of native coronary artery without angina pectoris; I10 Essential (primary) hypertension; E78.2 Mixed hyperlipidemia | CPT/HCPCS: G0399 ==

== ENCOUNTER → 2023-11-02 09:19 | Outpatient (CLI) | payer MEDICARE, SELFPAY ==
[2023-11-02 09:49] LABS: Basophils # 0.1 K/mm3 (0-0.2); Eosinophils # 0.2 K/mm3 (0.0-0.4); Eosinophils % 2.1 % (0.1-12.0); Hematocrit 44.3 % (42.0-52.0); Hemoglobin 14.7 g/dL (14.1-18.0); Lymphocytes # 1.3 K/mm3 (0.7-4.5); Lymphocytes % 15.1 % (10-50); Mean Corpuscular HGB Conc 33.1 g/dL (31.8-35.4); Mean Corpuscular Hemoglobin 28.1 pg (27.0-31.2); Mean Corpuscular Volume 84.7 fl (80-94); Mean Platelet Volume 7.8 fl (7.4-10.4); Monocytes # 0.3 K/mm3 (0.1-1.0); Monocytes % 3.2 % (1.7-9.3); Neutrophils % 78.7 % (37.0-80.0); Platelet Count 314 K/mm3 (142-424); Red Blood Count 5.23 M/mm3 (4.60-6.20); White Blood Count 8.8 K/mm3 (4.8-10.8)
[2023-11-02 11:25] LABS: Alanine Aminotransferase 43 U/L (12-78); Albumin Level 4.6 g/dl (3.5-5.0); Alkaline Phosphatase 122 U/L (38-126); Anion Gap 11.1 mEq/L (5-15); Aspartate Amino Transferase 45 U/L (17-59); Bilirubin,Direct 0.2 mg/dl (0.0-0.4); Bilirubin,Indirect 0.3 mg/dL (0.0-0.9); Bilirubin,Total 0.5 mg/dl (0.2-1.3); Bilirubin,Unconjugated 0.3 mg/dL (0.0-1.1); Blood Urea Nitrogen 18 mg/dl (9-20); Calcium 8.8 mg/dl (8.4-10.2); Carbon Dioxide 30 mmol/L (22.0-30.0); Chloride 103 mmol/L (98-107); Chol/HDL Ratio 8.9 (1-3.5); Cholesterol 239 mg/dl (140-200); Estimated Glomerular Filt Rate 98 ml/min (>60); GFR (African American) 118 ML/MIN (>60); Glucose 101 mg/dl (74-100); HDL Cholesterol 27 mg/dl (40-60); Potassium 4.1 mmoL/L (3.5-5.1); Sodium 140 mmol/L (136-145); Total Protein,Serum 7.5 g/dl (6.3-8.2); Triglycerides 352 mg/dl (30-150); VLDL Cholesterol 70 mg/dL (0-40)
[2023-11-02 11:37] LABS: Direct LDL Cholesterol 111.63 mg/dL (100-129)
[2023-11-02 11:44] LABS: Free T4 (Free Thyroxine) 1.68 ng/dl (0.78-2.19)
[2023-11-02 11:57] LABS: Thyroid Stimulating Hormone 0.34 uIU/mL (0.465-4.68)
== END ==
PROVIDERS: PCP Family Medicine; Visit Provider Nurse Practitioner Family
DX: I25.10 Atherosclerotic heart disease of native coronary artery without angina pectoris (principal); I11.9 Hypertensive heart disease without heart failure; E78.5 Hyperlipidemia, unspecified; I42.9 Cardiomyopathy, unspecified; R06.00 Dyspnea, unspecified; Z12.5 Encounter for screening for malignant neoplasm of prostate
CPT/HCPCS: 36415; 80048; 80061; 80076; 84439; 84443; 85025; G0103

== ENCOUNTER 2024-01-02 20:04 | Emergency (ER) | payer MEDICARE, SELFPAY ==
[2024-01-02 20:05] VITALS: BP 172/95; PULSE 98; RESP 20; TEMP 37; O2SAT 96; BMI 31.1
--- NOTE | 2024-01-02 20:17 | CT_ITS ---
PROCEDURE INFORMATION: Exam: CT Abdomen And Pelvis With Contrast Exam date and time: 01/02/2024 9:06 PM Age: 63 years old Clinical indication: Abdominal pain; Additional info: Fall, injury left chest/abd TECHNIQUE: Imaging protocol: Computed tomography of the abdomen and pelvis with contrast. Radiation optimization: All CT scans at this facility use at least one of these dose optimization techniques: automated exposure control; mA and/or kV adjustment per patient size (includes targeted exams where dose is matched to clinical indication); or iterative reconstruction. Contrast material: ISOVUE; Contrast volume: 75 ml; Contrast route: IV; COMPARISON: CT ABDOMEN WO/W CON 09/27/2021 10:28 AM FINDINGS: Lungs: Lung bases are clear. Liver: Fatty liver changes with associated hepatomegaly measuring 17.3 cm. Liver otherwise unremarkable. Gallbladder and bile ducts: Status post cholecystectomy. No evident bile duct dilatation allowing for prior cholecystectomy. Pancreas: Normal. No ductal dilation. Spleen: Normal. No splenomegaly. Adrenal glands: Normal. No mass. Kidneys and ureters: Normal. No hydronephrosis. Stomach and bowel: Unremarkable. No obstruction. No mucosal thickening. Appendix: No evidence of appendicitis. Intraperitoneal space: Unremarkable. No free air. No significant fluid collection. Vasculature: Atherosclerotic changes of the aorta and iliacs noted. No evidence of aneurysm. Lymph nodes: Unremarkable. No enlarged lymph nodes. Urinary bladder: Unremarkable as visualized. Reproductive: Unremarkable as visualized. Bones/joints: Unremarkable. No acute fracture. Soft tissues: Unremarkable. IMPRESSION: No acute abnormalities of the abdomen and pelvis. Nonemergent findings as above.
--- NOTE | 2024-01-02 20:17 | CT_ITS ---
PROCEDURE INFORMATION: Exam: CT Chest With Contrast; Diagnostic Exam date and time: 01/02/2024 9:03 PM Age: 63 years old Clinical indication: Chest wall pain; Additional info: Fall, injury left chest/abd TECHNIQUE: Imaging protocol: Diagnostic computed tomography of the chest with contrast. Radiation optimization: All CT scans at this facility use at least one of these dose optimization techniques: automated exposure control; mA and/or kV adjustment per patient size (includes targeted exams where dose is matched to clinical indication); or iterative reconstruction. Contrast material: ISOVUE; Contrast volume: 75 ml; Contrast route: IV; COMPARISON: CR XR CHEST 2V 03/16/2020 12:45 PM FINDINGS: Lungs: A 9 mm noncalcified nodule slightly ill-defined lobulated noted in the anterior left upper lobe on axial image 24 of series 4. This is developed in the interval since the CT of the C-spine dated 12/24/2018. Lungs are otherwise clear. Pleural spaces: Unremarkable. No pneumothorax. No pleural effusion. Heart: Unremarkable. No cardiomegaly. No pericardial effusion. Coronary arteries: No significant coronary artery calcifications. Lymph nodes: Unremarkable. No enlarged lymph nodes. Vasculature: Unremarkable. No aortic aneurysm. Bones/joints: See Lungs finding. Soft tissues: Unremarkable. IMPRESSION: 1. No acute abnormality. 2. Interval development of a 9 mm noncalcified nodule in the anterior left upper lobe. Developing primary lung tumor is a consideration. Pulmonary consultation advised. For both low risk and high risk patients consider PET/CT, biopsy, and/or three-month follow-up CT chest. (Reference: Zari) REFERENCES: Zari Christensen et al. Guidelines for Management of Incidental Pulmonary Nodules Detected on CT Images: From the Fleischner Society 2017. Radiology. 2017;284(1):228-243.
--- NOTE | 2024-01-02 20:19 | HMH.EDGENADL ---
Discharge Plan Disposition Patient Disposition: Home, Self-Care Condition: Good Prescriptions Prescriptions: New hydrocodone-acetaminophen 5-325 mg tablet 1 tab PO Q4H PRN (Reason: pain) 3 Days Qty: 18 0RF No Action diclofenac sodium 75 mg tablet,delayed release (DR/EC) 75 mg PO BID omeprazole 20 mg capsule,delayed release(DR/EC) 20 mg PO DAILY cyclobenzaprine 10 mg tablet 10 mg PO DAILY Creon 36,000-114,000- 180,000 unit capsule,delayed release(DR/EC) 2 cap PO TID Repatha SureClick 140 mg/mL pen injector 140 mg SQ Q2W Qty: 2 5RF dicyclomine 10 mg capsule 10 mg PO QID meloxicam 15 mg tablet 15 mg PO DAILY clonazepam 0.5 mg tablet 0.5 mg PO DAILY furosemide [Lasix] 40 mg tablet 40 mg PO DAILY Qty: 90 3RF bisoprolol fumarate 10 mg tablet See Rx Instructions .ROUTE .COMPLEX Qty: 90 3RF Dose Instruction: TAKE ONE TABLET BY MOUTH EVERY DAY AT BEDTIME FOR HIGH BLOOD PRESSURE Rx Instructions: TAKE ONE TABLET BY MOUTH EVERY DAY AT BEDTIME FOR HIGH BLOOD PRESSURE aspirin 81 mg tablet,delayed release (DR/EC) 81 mg PO DAILY Qty: 100 3RF amlodipine 10 mg tablet 10 mg PO BID Qty: 180 3RF valsartan 320 mg tablet See Rx Instructions .ROUTE .COMPLEX Qty: 90 3RF Dose Instruction: TAKE ONE TABLET BY MOUTH EVERY DAY Rx Instructions: TAKE ONE TABLET BY MOUTH EVERY DAY fluoxetine 10 mg capsule See Rx Instructions .ROUTE .COMPLEX Qty: 90 1RF Dose Instruction: TAKE ONE CAPSULE BY MOUTH EVERY DAY Rx Instructions: TAKE ONE CAPSULE BY MOUTH EVERY DAY gabapentin 300 MG capsule 300 mg PO BID montelukast 10 MG tablet 10 mg PO DAILY acetaminophen 650 MG tablet extended release 650 mg PO BIDP PRN (Reason: PAIN) Referrals Follow up/Referrals: Brody Aguilera MD [Primary Care Provider] - See instructions Activity Restrictions/Add. Instructions Additional Instructions/Restrictions: No evidence of any organ injury from your fall today. Radiology read your CT scans is normal but as demonstrated to you there are 2 nondisplaced rib fractures on the left side. Please use your incentive spirometer 10 times an hour every hour you are awake as discussed. Watch for signs and symptoms of pneumonia as discussed and return with any worsening symptoms. Please take [id number] pain medicine and your prescribed pain medicine if needed for breakthrough pain. Clinical Impressions Clinical Impression: Contusion of left chest wall, Abdominal wall contusion, Fracture of multiple ribs of left side Discharge ED Provider: Shayy Nelson General Adult HPI General Chief complaint: Fall Stated complaint: Fall 12/02 rib inj, diff breathing Time Seen by Provider: 01/02/24 20:12 Mode of Arrival: Ambulatory Source of Information: Patient Limitations: No Limitations Description of Symptoms (Recalled from ER Triage Doc. by RN): Patient presents to ED after a fall that occured around 12:00 today. Patient states he was laying deck mario and fell and his left side hit a 2x4 wood board. Patient reports pain when coughing, and brusing to left side. History of Present Illness HPI narrative: 63-year-old male who is working today fell directly onto wooden mario hitting the lateral aspect of his chest wall in his abdomen around noon. States that since that time he had significant difficult time breathing has pain in the left lateral chest wall lateral abdominal wall and epigastric region. Is on a daily aspirin but no other medical problems or anticoagulants. Did not hit his head or neck no other long bone injuries. Related Data Home Medications Medication Instructions Recorded Confirmed diclofenac sodium 75 mg 75 mg PO BID PAIN/INFLAMMATION 03/24/20 11/23/23 tablet,delayed release gabapentin 300 mg capsule 300 mg PO BID pain 03/22/21 11/23/23 acetaminophen 650 mg 650 mg PO BIDP PRN PAIN 03/23/21 11/23/23 tablet,extended release montelukast 10 mg tablet 10 mg PO DAILY allergies 03/23/21 11/23/23 dicyclomine 10 mg capsule 10 mg PO QID 10/26/21 11/23/23 cyclobenzaprine 10 mg tablet 10 mg PO DAILY 04/26/22 11/23/23 omeprazole 20 mg capsule,delayed 20 mg PO DAILY 04/26/22 11/23/23 release clonazepam 0.5 mg tablet 0.5 mg PO DAILY 10/26/22 11/23/23 meloxicam 15 mg tablet 15 mg PO DAILY 10/26/22 11/23/23 [id number] 2 cap PO TID 05/03/23 11/23/23 36,000-114,000-180,000 unit capsule,delay rel (Creon) Previous Rx's Medication Instructions Recorded aspirin 81 mg tablet,delayed 81 mg PO DAILY heart health #100 05/03/23 release tabs bisoprolol fumarate 10 mg tablet See Rx Instructions .Route 05/03/23 .COMPLEX #90 tabs furosemide 40 mg tablet (Lasix) 40 mg PO DAILY Heart failure #90 05/03/23 tabs valsartan 320 mg tablet See Rx Instructions .Route 08/09/23 .COMPLEX #90 tabs fluoxetine 10 mg capsule See Rx Instructions .Route 08/18/23 .COMPLEX #90 caps amlodipine 10 mg tablet 10 mg PO BID #180 tabs 11/02/23 evolocumab 140 mg/mL subcutaneous 140 mg SQ Q2W #2 mL 11/23/23 pen injector (Juan Templeton) hydrocodone 5 mg-acetaminophen 325 1 tab PO Q4H PRN pain 3 days #18 01/02/24 mg tablet tabs Allergies Allergy/AdvReac Type Severity Reaction Status Date / Time Lgqxjpt-JEW-[id number] Reductase Allergy Severe rhabdo Verified 11/23/23 08:49 Inhibitor [Iewgmiz-Suz-Jni Reductase Inhibitor] Sulfa (Sulfonamide Allergy Severe S-SWELLS-OR Verified 11/23/23 08:49 Antibiotics) AL/THROAT morphine Allergy Intermediate Rash with Verified 11/23/23 08:49 pustules Penicillins Allergy Intermediate I-ITCHING Verified 11/23/23 08:49 adhesive tape Allergy Unknown Verified 11/23/23 08:49 latex [LATEX] Allergy Unknown UNKOWN Verified 11/23/23 08:49 tramadol Allergy Rash Verified 11/23/23 08:49 fenofibrate [From Tricor] AdvReac Verified 11/23/23 08:49 ketorolac [From Toradol] AdvReac Rash Verified 11/23/23 08:49 promethazine [From Phenergan] AdvReac Verified 11/23/23 08:49 [facility] Disclaimer: The information contained in this section may have been updated after the patient was seen, as this information can be updated by other users. Medical History Acute pancreatitis Anxiety CAD (coronary artery disease) Cardiomyopathy Common bile duct stone Drug-induced myopathy GERD (gastroesophageal reflux disease) Hyperlipidemia Hypertension Hypertensive heart disease without heart failure Ileus Myalgia Pleural effusion Preoperative evaluation to rule out surgical contraindication Rhabdomyolysis Social History Smoking Status: Never smoker second hand exposure: No alcohol intake: never substance use type: denies use current occupational status: disabled Travel in the last 8 weeks: Inside the [place] household members: spouse housing: house ROS Obtained: Yes All systems reviewed & no additional complaints except as documented Physical Exam General General appearance: alert Chest Chest inspection: Present other (Significant tenderness with compression of the left lateral chest wall there is ecchymosis at the junction of the chest wall and the abdomen) Respiratory Respiratory exam: Present normal lung sounds bilaterally Cardiovascular Cardiovascular exam: Present regular rate Abdominal Exam Abdominal exam: Present tenderness (Tenderness is above from the junction of the left lateral abdominal wall and chest wall also some tenderness in the epigastric region) Neurological Exam Neurological exam: Present alert Medical Decision Making Cheo Inquiry Pt receiving controlled substance: No Vital Signs: 01/02/24 20:05 01/02/24 21:54 Temperature 98.6 F 98.8 F Temperature Source Oral Oral Pulse Rate 85 Pulse Rate [Right Radial] 98 H Respiratory Rate 20 18 Blood Pressure 146/88 H Blood Pressure [Right Arm] 172/95 H Blood Pressure Mean [Right Arm] 120 Blood Pressure Source Automatic Cuff Blood Pressure Source [Right Arm] Automatic Cuff Blood Pressure Position Supine Blood Pressure Position [Right Arm] Sitting 02 Sat by Pulse Oximetry 96 Oxygen Delivery Method Room Air Room Air Lab Data Lab results reviewed: Yes I reviewed the patient's lab results. Lab Results 01/02/24 20:45: WBC 14.2 H, RBC 4.74, Hgb 13.7 L, Hct 38.5 L, MCV 81.1, MCH 28.8, MCHC 35.5 H, RDW 14.5, Plt Count 313, MPV 8.9, Neut % (Auto) 73.4, Lymph % (Auto) 18.5, Bates % (Auto) 3.9, Eos % (Auto) 3.7, Baso % (Auto) 0.5, Neut # (Auto) 10.4 H, Lymph # (Auto) 2.6, Bates # (Auto) 0.6, Eos # (Auto) 0.5 H, Baso # (Auto) 0.1, Sodium 136, Potassium 5.0, Chloride 109 H, Carbon Dioxide 19 L, Anion Gap 13.0, BUN 35 H, Creatinine 1.20, Estimated Creat Clear 83, Estimated GFR 61, Est GFR ( Amer) 74, Glucose 111 H, Calcium 9.0, Total Bilirubin 0.8, AST 51, ALT 33, Alkaline Phosphatase 106, Total Protein 7.8, Albumin 4.4, Globulin 3.4 H, Albumin/Globulin Ratio 1.3, Lipase 119 01/02/24 20:45 01/02/24 20:45 Orders (Tests/Meds): ED MEDICATIONS Generic Name Dose Route Start Last Admin Trade Name Freq PRN Reason Stop Dose Admin Sodium Chloride 10 ml 01/02/24 21:09 01/02/24 21:10 Sodium Chloride 0.9% 10ml Syr (Rad Only) IV 02/01/24 21:08 10 ml NEEDED PRN Administration Maintain IV Site Discontinued Medications Generic Name Dose Route Start Last Admin Trade Name Freq PRN Reason Stop Dose Admin Hydrocodone Bitart/Acetaminophen 1 tab 01/02/24 21:39 01/02/24 21:41 Hydrocodone/Apap 5/325 Mg Tablet PO 01/02/24 21:40 1 tab ONCE ONE Administration Fentanyl Citrate 75 mcg 01/02/24 20:17 01/02/24 20:31 Fentanyl 100mcg/2ml Vial IV 01/02/24 20:18 75 mcg ONCE ONE Administration Lactated Ringer's 1,000 mls @ 999 mls/hr 01/02/24 20:30 01/02/24 20:31 Lactated Ringer's 1000 Ml Bag IV 01/02/24 21:30 999 mls/hr .Q1H1M MOUSTAPHA Administration Iopamidol 75 ml 01/02/24 21:09 01/02/24 21:10 Iopamidol-370 (76%);100ml Bottle IV 01/02/24 21:10 75 ml ONCE ONE Administration Iopamidol 75 ml 01/02/24 21:11 01/02/24 21:11 Iopamidol-370 (76%);100ml Bottle IV 01/02/24 21:12 75 ml ONCE ONE Administration Ondansetron HCl 4 mg 01/02/24 20:17 01/02/24 20:31 Ondansetron 4mg/2ml Vial IV 01/02/24 20:18 4 mg ONCE ONE Administration ORDERS Category Date Time Status CT abdomen pelvis w con Stat Cat Scan 01/02/24 20:[address] chest w con Stat Cat Scan 01/02/24 20:17 Completed CBC w/Auto Diff [Complete Blood Count Auto Diff] Stat Lab 01/02/24 20:45 Completed CMP [Comprehensive Metabolic Panel] Stat Lab 01/02/24 20:45 Completed Lipase Stat Lab 01/02/24 20:45 Completed Medical Decision Narrative: Patient with above history he is Indian CT head negative and Nexus negative has no other long bone injuries. He has pain in the lateral chest wall anterior epigastric and left lateral abdominal wall. Differential includes lung injury rib injuries spleen injury small bowel and retroperitoneal/pancreatic duodenal injury. Will get labs and CTs chest abdomen pelvis with contrast. IV fluids and fentanyl have been given. He has an allergy which actually sounds like a direct histamine release from morphine but will give him fentanyl. I will reassess after this workup is complete. Of note patient has urinated since this injury and had no gross hematuria therefore no indication for getting the urine at this point. CT scans performed which were read by radiology as no acute abnormalities. However on my personal interpretation there are very clearly to nondisplaced rib fractures on the left focal to where he is tender. I discussed this with the patient also showed him the imaging so he could see what I was talking about in case he looked up his records and does not see any abnormalities on radiology read. No underlying lung contusions pneumothorax hemothorax or organ injury as stated. He has been given fentanyl in the ED as well as [place] and an incentive spirometer and advised to use this 10 times an hour every hour while awake to return with any signs or symptoms of pneumonia he was discharged in improved and stable condition. Critical Care Critical Care Time Critical Care Time: No
[2024-01-02] MEDS: LACTATED RINGERS 1000ML 1,000 ML 999 ML IV (20:31)
[2024-01-02] MEDS: FENTANYL 100MCG/2ML VIAL 75 MCG IV (20:31)
[2024-01-02] MEDS: ONDANSETRON 4MG/2ML VIAL 4 MG IV (20:31)
[2024-01-02 20:56] LABS: Basophils # 0.1 K/mm3 (0-0.2); Basophils % 0.5 % (0.1-2.0); Chloride 109 mmol/L (98-107); Eosinophils # 0.5 K/mm3 (0.0-0.4); Eosinophils % 3.7 % (0.1-12.0); Hematocrit 38.5 % (42.0-52.0); Hemoglobin 13.7 g/dL (14.1-18.0); Lymphocytes # 2.6 K/mm3 (0.7-4.5); Lymphocytes % 18.5 % (10-50); Mean Corpuscular HGB Conc 35.5 g/dL (31.8-35.4); Mean Corpuscular Hemoglobin 28.8 pg (27.0-31.2); Mean Corpuscular Volume 81.1 fl (80-94); Mean Platelet Volume 8.9 fl (7.4-10.4); Monocytes # 0.6 K/mm3 (0.1-1.0); Monocytes % 3.9 % (1.7-9.3); Neutrophils # 10.4 K/mm3 (1.8-7.8); Neutrophils % 73.4 % (37.0-80.0); Platelet Count 313 K/mm3 (142-424); Red Blood Count 4.74 M/mm3 (4.60-6.20); Red Cell Distribution Width 14.5 % (11.5-17.5); Sodium 136 mmol/L (136-145); White Blood Count 14.2 K/mm3 (4.8-10.8)
[2024-01-02 20:59] LABS: Alanine Aminotransferase 33 U/L (12-78); Albumin Level 4.4 g/dl (3.5-5.0); Albumin/Globulin Ratio 1.3 (1.1-1.8); Alkaline Phosphatase 106 U/L (38-126); Aspartate Amino Transferase 51 U/L (17-59); Bilirubin,Total 0.8 mg/dl (0.2-1.3); Blood Urea Nitrogen 35 mg/dl (9-20); Carbon Dioxide 19 mmol/L (22.0-30.0); Creatinine Clearance Estimated 83 mL/min (50-200); Estimated Glomerular Filt Rate 61 ml/min (>60); GFR (African American) 74 ML/MIN (>60); Globulin 3.4 g/dL (1.3-3.2); Glucose 111 mg/dl (74-100); Total Protein,Serum 7.8 g/dl (6.3-8.2)
[2024-01-02 21:03] LABS: Lipase 119 U/L (23-300)
[2024-01-02] MEDS: IOPAMIDOL-370 (76%);100ML BOTTLE 75 ML IV ×2 (21:10→21:11)
[2024-01-02] MEDS: SODIUM CHLORIDE 0.9% 10ML SYR (RAD ONLY) 10 ML IV (21:10)
[2024-01-02] MEDS: HYDROCODONE/APAP 5/325 MG TABLET 1 TAB PO (21:41)
[2024-01-02 21:54] VITALS: BP 146/88; PULSE 85; RESP 18; TEMP 37.1; O2SAT 97
== END 2024-01-02 22:05 | disposition home or self-care (01) ==
PROVIDERS: Emergency Provider Student in an Organized Health Care Education/Training Program; PCP Family Medicine
DX: S22.42XA Multiple fractures of ribs, left side, initial encounter for closed fracture (principal); S20.212A Contusion of left front wall of thorax, initial encounter; S30.1XXA Contusion of abdominal wall, initial encounter; W18.30XA Fall on same level, unspecified, initial encounter; K21.9 Gastro-esophageal reflux disease without esophagitis; I11.9 Hypertensive heart disease without heart failure; I25.10 Atherosclerotic heart disease of native coronary artery without angina pectoris; E78.5 Hyperlipidemia, unspecified
CPT/HCPCS: 71260; 74177; 80053; 83690; 85025; 96361; 96374; 96375; 99285; J2405; Q9967

== ENCOUNTER 2024-02-09 19:51 | Emergency (ER) | payer MEDICARE, SELFPAY ==
[2024-02-09 20:06] VITALS: BP 131/72; PULSE 84; RESP 16; TEMP 37.2; O2SAT 97; BMI 31.1
--- NOTE | 2024-02-09 20:08 | XR_ITS ---
PROCEDURE INFORMATION: Exam: XR Chest Exam date and time: 02/09/2024 8:08 PM Age: 63 years old Clinical indication: Shortness of breath; Additional info: Shortness of air TECHNIQUE: Imaging protocol: Radiologic exam of the chest. Views: 2 views. COMPARISON: CT CHEST W CON 01/02/2024 9:03 PM FINDINGS: Lungs: Normal. Pleural spaces: Normal. No pleural effusion. No pneumothorax. Heart/Mediastinum: Normal. No cardiomegaly. Vasculature: Mildly tortuous descending thoracic aorta. Bones/joints: Status post left total shoulder arthroplasty. IMPRESSION: No acute findings.
--- NOTE | 2024-02-09 20:11 | PC.NURSE ---
SWAB OBTAINED AND SENT TO LAB
[2024-02-09 20:15] LABS: Coronavirus 19, PCR Not Detected (NotDetected); Influenza A, PCR Not Detected (NotDetected); Influenza B, PCR Not Detected (NotDetected)
--- NOTE | 2024-02-09 20:47 | HMH.EDGENADL ---
Discharge Plan Disposition Patient Disposition: Home, Self-Care Prescriptions Prescriptions: New benzonatate 200 mg capsule 200 mg PO BID PRN (Reason: cough) Qty: 20 0RF albuterol sulfate 90 mcg/actuation HFA aerosol inhaler 3 inh inhalation Q3H PRN (Reason: shortness of breath or wheezing) Qty: 6.7 0RF Rx Instructions: until breathing returns to target peak flow/parameters No Action diclofenac sodium 75 mg tablet,delayed release (DR/EC) 75 mg PO BID omeprazole 20 mg capsule,delayed release(DR/EC) 20 mg PO DAILY cyclobenzaprine 10 mg tablet 10 mg PO DAILY Creon 36,000-114,000- 180,000 unit capsule,delayed release(DR/EC) 2 cap PO TID Repatha SureClick 140 mg/mL pen injector 140 mg SQ Q2W Qty: 2 5RF dicyclomine 10 mg capsule 10 mg PO QID meloxicam 15 mg tablet 15 mg PO DAILY clonazepam 0.5 mg tablet 0.5 mg PO DAILY furosemide [Lasix] 40 mg tablet 40 mg PO DAILY Qty: 90 3RF bisoprolol fumarate 10 mg tablet See Rx Instructions .ROUTE .COMPLEX Qty: 90 3RF Dose Instruction: TAKE ONE TABLET BY MOUTH EVERY DAY AT BEDTIME FOR HIGH BLOOD PRESSURE Rx Instructions: TAKE ONE TABLET BY MOUTH EVERY DAY AT BEDTIME FOR HIGH BLOOD PRESSURE aspirin 81 mg tablet,delayed release (DR/EC) 81 mg PO DAILY Qty: 100 3RF amlodipine 10 mg tablet 10 mg PO BID Qty: 180 3RF valsartan 320 mg tablet See Rx Instructions .ROUTE .COMPLEX Qty: 90 3RF Dose Instruction: TAKE ONE TABLET BY MOUTH EVERY DAY Rx Instructions: TAKE ONE TABLET BY MOUTH EVERY DAY fluoxetine 10 mg capsule See Rx Instructions .ROUTE .COMPLEX Qty: 90 1RF Dose Instruction: TAKE ONE CAPSULE BY MOUTH EVERY DAY Rx Instructions: TAKE ONE CAPSULE BY MOUTH EVERY DAY gabapentin 300 MG capsule 300 mg PO BID montelukast 10 MG tablet 10 mg PO DAILY acetaminophen 650 MG tablet extended release 650 mg PO BIDP PRN (Reason: PAIN) hydrocodone-acetaminophen 5-325 mg tablet 1 tab PO Q4H PRN (Reason: pain) 3 Days Qty: 18 0RF Referrals Follow up/Referrals: Brody Aguilera MD [Primary Care Provider] - See instructions Activity Restrictions/Add. Instructions Additional Instructions/Restrictions: At this time it was felt you are safe to be discharged home. If new or worsening symptoms please do not hesitate to return the emergency department. If symptoms persist please follow-up with your family doctor as you are able. Please take your medications as prescribed. Clinical Impressions Clinical Impression: Bronchitis Discharge ED Provider: Jaya Goldman General Adult HPI General Chief complaint: Upper Respiratory Infection Stated complaint: Cough,fever Time Seen by Provider: 02/09/24 20:00 Mode of Arrival: Family Vehicle Source of Information: Patient Limitations: No Limitations Description of Symptoms (Recalled from ER Triage Doc. by RN): upper resp symptoms since monday History of Present Illness HPI narrative: Patient is a 63-year-old male previous smoker, last cigarette 2013 who presents emergency department for evaluation of cough. Onset was acute, occurring since Monday. He has had progressive symptoms that are refractory to [place] causing her to present here for continued evaluation. He has a history of recent rib fractures on the left after falling onto a joist however has had no oxygen requirement throughout the course. No other acute complaints at this time. Related Data Home Medications Medication Instructions Recorded Confirmed diclofenac sodium 75 mg 75 mg PO BID PAIN/INFLAMMATION 03/24/20 11/23/23 tablet,delayed release gabapentin 300 mg capsule 300 mg PO BID pain 03/22/21 11/23/23 acetaminophen 650 mg 650 mg PO BIDP PRN PAIN 03/23/21 11/23/23 tablet,extended release montelukast 10 mg tablet 10 mg PO DAILY allergies 03/23/21 11/23/23 dicyclomine 10 mg capsule 10 mg PO QID 10/26/21 11/23/23 cyclobenzaprine 10 mg tablet 10 mg PO DAILY 04/26/22 11/23/23 omeprazole 20 mg capsule,delayed 20 mg PO DAILY 04/26/22 11/23/23 release clonazepam 0.5 mg tablet 0.5 mg PO DAILY 10/26/22 11/23/23 meloxicam 15 mg tablet 15 mg PO DAILY 10/26/22 11/23/23 [id number] 2 cap PO TID 05/03/23 11/23/23 36,000-114,000-180,000 unit capsule,delay rel (Creon) Previous Rx's Medication Instructions Recorded aspirin 81 mg tablet,delayed 81 mg PO DAILY [employer] #100 05/03/23 release tabs bisoprolol fumarate 10 mg tablet See Rx Instructions .Route 05/03/23 .COMPLEX #90 tabs furosemide 40 mg tablet (Lasix) 40 mg PO DAILY Heart failure #90 05/03/23 tabs valsartan 320 mg tablet See Rx Instructions .Route 08/09/23 .COMPLEX #90 tabs fluoxetine 10 mg capsule See Rx Instructions .Route 08/18/23 .COMPLEX #90 caps amlodipine 10 mg tablet 10 mg PO BID #180 tabs 11/02/23 evolocumab 140 mg/mL subcutaneous 140 mg SQ Q2W #2 mL 11/23/23 pen injector (Repatha SureClick) hydrocodone 5 mg-acetaminophen 325 1 tab PO Q4H PRN pain 3 days #18 01/02/24 mg tablet tabs albuterol sulfate 90 mcg/actuation 3 inh inhalation Q3H PRN shortness 02/09/24 aerosol inhaler of breath or wheezing #6.7 grams benzonatate 200 mg capsule 200 mg PO BID PRN cough #20 caps 02/09/24 Allergies Allergy/AdvReac Type Severity Reaction Status Date / Time Slilrvu-LOX-VaG Reductase Allergy Severe rhabdo Verified 11/23/23 08:49 Inhibitor [Gehesqc-Ywg-Lzn Reductase Inhibitor] Sulfa (Sulfonamide Allergy Severe S-SWELLS-OR Verified 11/23/23 08:49 Antibiotics) AL/THROAT morphine Allergy Intermediate Rash with Verified 11/23/23 08:49 pustules Penicillins Allergy Intermediate I-ITCHING Verified 11/23/23 08:49 adhesive tape Allergy Unknown Verified 11/23/23 08:49 latex [LATEX] Allergy Unknown UNKOWN Verified 11/23/23 08:49 tramadol Allergy Rash Verified 11/23/23 08:49 fenofibrate [From Tricor] AdvReac Verified 11/23/23 08:49 ketorolac [From Toradol] AdvReac Rash Verified 11/23/23 08:49 promethazine [From Phenergan] AdvReac Verified 11/23/23 08:49 [facility] Disclaimer: The information contained in this section may have been updated after the patient was seen, as this information can be updated by other users. Medical History Acute pancreatitis Anxiety CAD (coronary artery disease) Cardiomyopathy Common bile duct stone Drug-induced myopathy GERD (gastroesophageal reflux disease) Hyperlipidemia Hypertension Hypertensive heart disease without heart failure Ileus Myalgia Pleural effusion Preoperative evaluation to rule out surgical contraindication Rhabdomyolysis Social History Smoking Status: Unknown if ever smoked second hand exposure: No alcohol intake: never substance use type: denies use current occupational status: disabled Travel in the last 8 weeks: [place] the [place] household members: spouse housing: house ROS Obtained: Yes Systems reviewed as appropriate & no additional complaints except as documented Physical Exam General General appearance: alert and in no apparent distress Head Head exam: atraumatic and normocephalic Eye Eye exam: Present PERRL ENT ENT exam: Present mucous membranes moist; Absent TM's normal bilaterally (Partial serous middle ear effusion on the right) Neck Neck exam: Present normal inspection Chest Chest inspection: Present normal inspection and symmetric chest wall rise Respiratory Respiratory exam: Present other (Bilateral rhonchorous breath sounds, no wheezing); Absent respiratory distress Cardiovascular Cardiovascular exam: Present regular rate and normal rhythm Extremities Exam Extremities exam: Present normal inspection Neurological Exam Neurological exam: Present alert Psychiatric Psychiatric exam: Present normal affect Skin Skin exam: Present warm and dry Medical Decision Making Cheo Inquiry Pt receiving controlled substance: No Vital Signs: 02/09/24 20:06 02/09/24 20:55 02/09/24 20:55 Temperature 98.9 F Temperature Source Oral Pulse Rate 86 80 Pulse Rate [Right Brachial] 84 Respiratory Rate 16 Blood Pressure [Right Arm] 131/72 Blood Pressure Mean [Right Arm] 91 Blood Pressure Source [Right Arm] Automatic Cuff Blood Pressure Position [Right Arm] Sitting 02 Sat by Pulse Oximetry 97 Oxygen Delivery Method Room Air Lab Data Lab Results 02/09/24 20:10: SARS-CoV-2 (PCR) Not detected, Influenza A Untype (PCR) Not detected, Influenza Type B (PCR) Not detected Orders (Tests/Meds): ED MEDICATIONS Discontinued Medications Generic Name Dose Route Start Last Admin Trade Name Freq PRN Reason Stop Dose Admin Albuterol/Ipratropium 3 ml 02/09/24 20:47 02/09/24 20:55 Ipratropium/Albuterol 3 Ml Neb IH 02/09/24 20:48 3 ml ONCE ONE Administration ORDERS Category Date Time Status XR chest 2V Stat Exams 02/09/24 20:08 Completed Rapid PCR Covid and Flu A/B Stat Lab 02/09/24 20:10 Completed Medical Decision Narrative: In summary patient is a 63-year-old male with past medical history described above who presents emergency department for evaluation of cough. Patient is hemodynamically stable nontoxic-appearing upon arrival, afebrile, rhonchorous breath sounds bilaterally. Differential includes pneumonia, viral bronchitis, among others. Workup will be conducted with two-view chest x-ray and viral swab. Chest x-ray informally interpreted by me, no acute lobar opacities, for read shows no acute pathology. Viral swab negative. Patient was given DuoNeb at bedside and had significant resolution of symptoms. Given this he may have reactive airway disease component given his history of smoking will be discharged with an albuterol inhaler and Tessalon Perles and was given return precautions and will follow-up with his family doctor on outpatient basis. Critical Care Critical Care Time Critical Care Time: No
[2024-02-09 20:55] VITALS: PULSE 80; PULSE 86
[2024-02-09] MEDS: IPRATROPIUM/ALBUTEROL 3 ML NEB IH (20:55)
[2024-02-09 21:31] VITALS: BP 108/73; PULSE 83; RESP 19; TEMP 36.8; O2SAT 99
== END 2024-02-09 21:33 | disposition home or self-care (01) ==
PROVIDERS: Emergency Provider Emergency Medicine; PCP Family Medicine
DX: J40 Bronchitis, not specified as acute or chronic (principal); R05.9 Cough, unspecified; I25.10 Atherosclerotic heart disease of native coronary artery without angina pectoris; I42.9 Cardiomyopathy, unspecified; K21.9 Gastro-esophageal reflux disease without esophagitis; E78.5 Hyperlipidemia, unspecified; I11.9 Hypertensive heart disease without heart failure
CPT/HCPCS: 71046; 87636; 99283

== ENCOUNTER 2024-03-05 15:50 | Outpatient (CLI) | payer MEDICARE, SELFPAY ==
[2024-03-05 16:30] LABS: Basophils # 0.2 K/mm3 (0-0.2); Basophils % 1.5 % (0.1-2.0); Eosinophils # 0.4 K/mm3 (0.0-0.4); Eosinophils % 4.1 % (0.1-12.0); Hemoglobin 14.7 g/dL (14.1-18.0); Lymphocytes # 3.8 K/mm3 (0.7-4.5); Lymphocytes % 35.8 % (10-50); Mean Corpuscular HGB Conc 32.8 g/dL (31.8-35.4); Mean Corpuscular Hemoglobin 27.8 pg (27.0-31.2); Mean Corpuscular Volume 84.8 fl (80-94); Mean Platelet Volume 7.3 fl (7.4-10.4); Monocytes # 0.5 K/mm3 (0.1-1.0); Monocytes % 4.7 % (1.7-9.3); Neutrophils # 5.8 K/mm3 (1.8-7.8); Neutrophils % 53.9 % (37.0-80.0); Platelet Count 306 K/mm3 (142-424); Red Cell Distribution Width 14.3 % (11.5-17.5); White Blood Count 10.8 K/mm3 (4.8-10.8)
[2024-03-10 17:38] LABS: D001-IgE D pteronyssinus <0.10 kU/L (Class 0); D002-IgE D farinae <0.10 kU/L (Class 0); E001-IgE Cat Dander <0.10 kU/L (Class 0); E005-IgE Dog Dander <0.10 kU/L (Class 0); E072-IgE Mouse Urine <0.10 kU/L (Class 0); G002-IgE Bermuda Grass <0.10 kU/L (Class 0); G006-IgE Timothy Grass <0.10 kU/L (Class 0); I006-IgE Cockroach, German <0.10 kU/L (Class 0); Immunoglobulin E, Total 32 IU/mL (6-495); M001-IgE Penicillium chrysogen <0.10 kU/L (Class 0); M002-IgE Cladosporium herbarum <0.10 kU/L (Class 0); M003-IgE Aspergillus fumigatus <0.10 kU/L (Class 0); M006-IgE Alternaria alternata <0.10 kU/L (Class 0); T001-IgE Maple/Box Elder <0.10 kU/L (Class 0); T003-IgE Common Silver Birch <0.10 kU/L (Class 0); T006-IgE Cedar, Mountain <0.10 kU/L (Class 0); T007-IgE Oak, White <0.10 kU/L (Class 0); T008-IgE Elm, American <0.10 kU/L (Class 0); T010-IgE Walnut <0.10 kU/L (Class 0); T011-IgE Maple Leaf Sycamore <0.10 kU/L (Class 0); T014-IgE Cottonwood <0.10 kU/L (Class 0); T015-IgE Ash, White <0.10 kU/L (Class 0); T022-IgE Pecan, Hickory <0.10 kU/L (Class 0); T070-IgE White Mulberry <0.10 kU/L (Class 0); W001-IgE Ragweed, Short <0.10 kU/L (Class 0); W011-IgE Thistle, Russian 0.11 kU/L (Class 0/I); W014-IgE Pigweed, Common <0.10 kU/L (Class 0); W018-IgE Sheep Sorrel <0.10 kU/L (Class 0)
== END 2024-03-05 23:59 | disposition home or self-care (01) ==
LOC: LAB 15:51
PROVIDERS: PCP Family Medicine; Visit Provider Internal Medicine Pulmonary Disease
DX: J30.9 Allergic rhinitis, unspecified
CPT/HCPCS: 36415; 82785; 85025; 86003

== ENCOUNTER 2024-03-21 09:57 | Outpatient (CLI) | payer MEDICARE, SELFPAY ==
[2024-03-21] MEDS: ALBUTEROL 0.083% 2.5 MG/3 ML NEB IH (10:32)
--- NOTE | 2024-03-21 10:33 | PC.NURSE ---
PFT and 6 Minute Walk Test completed without incident. Albuterol 0.083% given via HHN per written protocol, Pt tolerated tx well.
== END 2024-03-21 23:59 | disposition home or self-care (01) ==
LOC: RT 09:58
PROVIDERS: PCP Family Medicine; Visit Provider Internal Medicine Pulmonary Disease
DX: R06.09 Other forms of dyspnea (principal)
CPT/HCPCS: 94060; 94618; 94726; 94729

== ENCOUNTER 2024-05-22 09:20 | Outpatient (CLI) | payer MEDICARE, SELFPAY ==
[2024-05-22 10:31] LABS: Alanine Aminotransferase 32 U/L (12-78); Albumin Level 4.7 g/dl (3.5-5.0); Alkaline Phosphatase 92 U/L (38-126); Aspartate Amino Transferase 32 U/L (17-59); Bilirubin,Indirect 0.5 mg/dL (0.0-0.9); Bilirubin,Total 0.5 mg/dl (0.2-1.3); Bilirubin,Unconjugated 0.5 mg/dL (0.0-1.1); Chol/HDL Ratio 5.6 (1-3.5); Cholesterol 175 mg/dl (140-200); HDL Cholesterol 31 mg/dl (40-60); Total Protein,Serum 7.4 g/dl (6.3-8.2); Triglycerides 333 mg/dl (30-150); VLDL Cholesterol 67 mg/dL (0-40)
[2024-05-22 10:42] LABS: Direct LDL Cholesterol 62.91 mg/dL (100-129)
== END 2024-05-22 23:59 | disposition home or self-care (01) ==
LOC: LAB 09:21
PROVIDERS: PCP Family Medicine; Visit Provider Nurse Practitioner Family
DX: E11.9 Type 2 diabetes mellitus without complications (principal); I11.9 Hypertensive heart disease without heart failure; I10 Essential (primary) hypertension
CPT/HCPCS: 36415; 80061; 80076

== ENCOUNTER 2024-06-26 14:38 | Outpatient (CLI) | payer MEDICARE, SELFPAY ==
--- NOTE | 2024-06-26 14:39 | CT_ITS ---
FINAL REPORT TECHNIQUE: Axial images were obtained from the lung apex to the mid abdomen by computed tomography. Coronal reformatted images were obtained. This study was performed with techniques to keep radiation doses as low as reasonably achievable, (ALARA). Individualized dose reduction techniques using automated exposure control or adjustment of mA and/or kV according to the patient''s size were employed. CLINICAL HISTORY: 3 Month follow-up left upper lobe nodule COMPARISON: CT chest 01/02/2024 FINDINGS: No mediastinal mass or adenopathy is identified. No axillary mass or adenopathy is seen.There is no pericardial or pleural effusion. There is a stable 7 mm left upper lobe nodule on image 21. There are several calcified granulomas. Mild scarring is noted in the posterior lungs. No new mass or nodule is identified. No localized pulmonary inflammatory process is noted. The chest wall is intact.Limited images of the upper abdomen are unremarkable. The patient is status post cholecystectomy. IMPRESSION: Stable left upper lobe nodule. Recommend additional follow-up in 6 to 12 months to evaluate for stability. Reviewed, Interpreted and Dictated by Flavio Stone III, MD Transcribed by Destiny Tineo Authenticated and [facility]
== END 2024-06-26 23:59 | disposition home or self-care (01) ==
LOC: RAD 14:39
PROVIDERS: PCP Family Medicine; Visit Provider Internal Medicine Pulmonary Disease
DX: R91.8 Other nonspecific abnormal finding of lung field (principal)
CPT/HCPCS: 71250

== ENCOUNTER 2024-09-19 10:05 | Outpatient (CLI) | payer MEDICARE, SELFPAY ==
--- NOTE | 2024-09-19 10:09 | XR_ITS ---
PROCEDURE INFORMATION: Exam: XR Right Knee Exam date and time: 09/19/2024 10:23 AM Age: 64 years old Clinical indication: Pain; Knee; Right; Prior surgery; Surgery date: 6+ months; Surgery type: Meniscus repair in 2009; Additional info: Right knee pain TECHNIQUE: Imaging protocol: Radiologic exam of the right knee. Views: 3 views. COMPARISON: No relevant prior studies available. FINDINGS: Bones/joints: There are pronounced degenerative changes of the knee joint, predominantly involving the medial joint compartment. Small joint efussion. No visible fracture or dislocation. Soft tissues: Normal. IMPRESSION: 1. There are pronounced degenerative changes of the knee joint, predominantly involving the medial joint compartment. 2. No visible fracture or dislocation.
== END 2024-09-19 23:59 | disposition home or self-care (01) ==
LOC: RAD 10:05
PROVIDERS: PCP Family Medicine; Visit Provider Physician Assistant
DX: M25.561 Pain in right knee (principal)
CPT/HCPCS: 73562

== ENCOUNTER 2024-09-24 16:13 | Outpatient (CLI) | payer MEDICARE, SELFPAY ==
--- NOTE | 2024-09-24 16:24 | MR_ITS ---
PROCEDURE INFORMATION: Exam: MR Right Lower Extremity Joint Without Contrast, Knee Exam date and time: 09/24/2024 4:43 PM Age: 64 years old Clinical indication: Pain; Knee; Right; Additional info: Knee pain. Swelling TECHNIQUE: Imaging protocol: Magnetic resonance imaging of the right lower extremity joint without contrast. Exam focused on the knee. COMPARISON: CR XR KNEE RT 3V 09/19/2024 10:23 AM FINDINGS: Bones/joints: Tricompartment degenerative changes are visualized. Degenerative spurring is visualized within the medial compartment, lateral compartment, as well as of the patella. Cartilage loss is visualized within the medial and lateral compartments of the knee. There is heterogeneous signal intensity and fissures involving the patella cartilage at the lateral facet. There is thinning and irregularity of the patellar cartilage at the medial facet. A small to moderate sized patellofemoral joint effusion is visualized. A tiny Jacobs cyst is seen. Mild lateral subluxation of the patella. Bursae: Fluid is identified within the deep infrapatellar bursa. Medial meniscus: Complex tearing of the posterior horn and root of the medial meniscus. Tear is also visualized of the anterior horn of the medial meniscus. There is extrusion of the body of the medial meniscus with meniscal tear. There is an increase in fluid inferior to the posterior horn of the medial meniscus, and a floating meniscus is considered. Lateral meniscus: Horizontal tear of the posterior horn the lateral meniscus, extending to the inferior articulating surface. Tear is suggested of the posterior root of the lateral meniscus. The anterior horn of the lateral meniscus is small in size with abnormal signal intensity concerning for meniscal tear. Myxoid degeneration is seen of the lateral meniscus. Anterior cruciate ligament: The anterior cruciate ligament is incompletely visualized, consistent with ACL tear. A full-thickness tear is considered. Posterior cruciate ligament: No visualized tear. Medial capsule and supporting structures: Unremarkable. No tear. Lateral capsule and supporting structures: Unremarkable. No tear. Extensor mechanism of knee: Tendinosis is identified of the patellar tendon. No visualized tear of the distal quadriceps tendon. Soft tissues: Edema is seen within Hoffa's fat. Mild soft tissue swelling is noted anteriorly. IMPRESSION: 1. Medial and lateral meniscal tears. There is an increase in fluid inferior to the posterior horn of the medial meniscus, and a floating meniscus is considered. 2. The anterior cruciate ligament is incompletely visualized, consistent with ACL tear. A full-thickness tear is considered. 3. Tricompartment degenerative changes are visualized. Cartilage loss is visualized within the medial and lateral compartments of the knee. 4. A small to moderate sized patellofemoral joint effusion is visualized. A tiny Jacobs cyst is seen. 5. Mild lateral subluxation of the patella. 6. Additional findings described above.
== END 2024-09-24 23:59 | disposition home or self-care (01) ==
LOC: RAD 16:13
PROVIDERS: PCP Family Medicine; Visit Provider Orthopaedic Surgery
DX: M23.91 Unspecified internal derangement of right knee (principal)
CPT/HCPCS: 73721

== ENCOUNTER 2024-10-04 10:49 | Outpatient (CLI) | payer MEDICARE, SELFPAY ==
--- NOTE | 2024-10-04 11:27 | ECG_ITS ---
APPROVED REPORT Exam: Resting ECG HR:64 bpm ECG Measurements Heart Rate 64 AXES PA 150 P 33 QRSd 85 QRS 19 QT 367 T 12 QTc 377 Conclusion SINUS RHYTHM NORMAL ECG UNCONFIRMED REPORT Electronically signed by : Jonatan Garcia MD 10/15/2024 20:56:57
--- NOTE | 2024-10-04 11:31 | XR_ITS ---
PROCEDURE INFORMATION: Exam: XR Chest Exam date and time: 10/04/2024 11:33 AM Age: 64 years old Clinical indication: Screening exam; Pre-operative exam; Other: Knee; Additional info: Preop for knee surgery TECHNIQUE: Imaging protocol: Radiologic exam of the chest. Views: 2 views. COMPARISON: No relevant prior studies available. FINDINGS: Lungs: Unremarkable. No consolidation. Pleural spaces: Unremarkable. No pleural effusion. No pneumothorax. Heart/Mediastinum: Unremarkable. No cardiomegaly. Bones/joints: Postsurgical changes are seen involving the left shoulder joint. IMPRESSION: No acute findings.
[2024-10-04 11:46] LABS: Albumin Level 4.4 g/dl (3.5-5.0); Chloride 104 mmol/L (98-107); Potassium 4.4 mmoL/L (3.5-5.1); Sodium 140 mmol/L (136-145)
[2024-10-04 11:48] LABS: Blood Urea Nitrogen 16 mg/dl (9-20)
[2024-10-04 11:49] LABS: Alanine Aminotransferase 48 U/L (12-78); Albumin/Globulin Ratio 1.7 (1.1-1.8); Alkaline Phosphatase 92 U/L (38-126); Anion Gap 14.4 mEq/L (5-15); Aspartate Amino Transferase 43 U/L (17-59); Bilirubin,Total 0.6 mg/dl (0.2-1.3); Calcium 9.1 mg/dl (8.4-10.2); Carbon Dioxide 26 mmol/L (22.0-30.0); Estimated Glomerular Filt Rate 85 ml/min (>60); GFR (African American) 103 ML/MIN (>60); Globulin 2.6 g/dL (1.3-3.2); Glucose 113 mg/dl (74-100)
[2024-10-04 11:52] LABS: Basophils # 0.1 K/mm3 (0-0.2); Basophils % 1.4 % (0.1-2.0); Eosinophils # 0.3 K/mm3 (0.0-0.4); Eosinophils % 4.6 % (0.1-12.0); Hematocrit 42.2 % (42.0-52.0); Hemoglobin 14.4 g/dL (14.1-18.0); Lymphocytes # 1.9 K/mm3 (0.7-4.5); Lymphocytes % 30.7 % (10-50); Mean Corpuscular Hemoglobin 28.4 pg (27.0-31.2); Mean Corpuscular Volume 83.4 fl (80-94); Mean Platelet Volume 7.1 fl (7.4-10.4); Monocytes # 0.5 K/mm3 (0.1-1.0); Neutrophils # 3.5 K/mm3 (1.8-7.8); Neutrophils % 55.4 % (37.0-80.0); Platelet Count 261 K/mm3 (142-424); Red Blood Count 5.05 M/mm3 (4.60-6.20); White Blood Count 6.3 K/mm3 (4.8-10.8)
== END 2024-10-04 23:59 | disposition home or self-care (01) ==
LOC: PREOP 10:51
PROVIDERS: PCP Family Medicine; Visit Provider Orthopaedic Surgery
DX: Z01.811 Encounter for preprocedural respiratory examination (principal); M23.91 Unspecified internal derangement of right knee
CPT/HCPCS: 71046; 80053; 85025; 93005

== ENCOUNTER 2024-10-23 08:35 | Day surgery (SDC) | payer MEDICARE, SELFPAY ==
[2024-10-22 11:02] VITALS: BMI 32.1
[2024-10-23] VITALS (8 sets, daily range): BP systolic 104–120; BP diastolic 61–80; PULSE 63–77; RESP 12–18; TEMP 36.3–36.6; O2SAT 92–98
[2024-10-23] MEDS: LACTATED RINGERS 1000ML 1,000 ML 100 ML IV (09:21)
[2024-10-23 09:32] LABS: POC Glucose,Bedside 100 (70-110)
--- NOTE | 2024-10-23 09:44 | P.PNANES_ITS ---
[facility] Disclaimer: The information contained in this section may have been updated after the patient was seen, as this information can be updated by other users. Medical History Asthma Dyspnea on exertion Chronic cough Stopped smoking with greater than 20 pack year history Drug-induced myopathy Anxiety Cardiomyopathy CAD (coronary artery disease) Pleural effusion Ileus GERD (gastroesophageal reflux disease) Hypertension Acute pancreatitis Common bile duct stone Myalgia Rhabdomyolysis Preoperative evaluation to rule out surgical contraindication Hyperlipidemia Hypertensive heart disease without heart failure Surgical History History of pancreatic surgery History of surgery on upper extremity History of surgery on lower extremity History of colonoscopy History of cholecystectomy Family History Other Diabetes Hypertension Social History Smoking Status: Former smoker tobacco type: cigarettes smoking status stop date: 2013 second hand exposure: No alcohol intake: never substance use type: denies use current occupational status: disabled Travel in the last 8 weeks: None household members: spouse housing: house [facility] Anesthesia Checklist Patient Identification Patient Identification: Arm Band Structural Data Admitted From: Home Planned Operative Procedure/s: Right Knee Arthroscopy Consent for Planned Operative Procedure(s) Verified: Yes Verified Documents: Surgical Consent and History and Physical NPO Status Verified Time NPO: 00:00 Additional verifications Anesthesia Reactions: No Hx Blood Transfusions: No Blood Transfusion Reaction: No Airway Assessment Mallampati Score:: Class II C-Spine Mobility Assessed: Yes TMJ Mobility Assessed: Yes Dentition: Edentulous Neurological Assessment Level of Consciousness: Awake, Alert and Appropriate Anesthesia Plan Anesthesia Risk discussed: Yes Anesthesia Plan: Verified ASA Class: III Anesthesia Type: General
[2024-10-23] MEDS: CLINDAMYCIN PHOSPHATE/D5W 900 MG/50 ML PIGGYBACK 100 MG IV (11:41)
[2024-10-23] MEDS: BUPIVACAINE 0.25% 30ML VIAL 75 MG (12:05)
[2024-10-23] MEDS: RINGERS SOLUTION,LACTATED 6,000 ML 25 ML IR (12:16)
--- NOTE | 2024-10-23 12:42 | P.OP_ITS ---
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 Surgeon:: Zach Qureshi DO Metalizing Machine Operator Automatic(s):: Thaddeus STRONG SEAT SCOOPER MACHINE:: Margarita Mejia Anesthesia: GETA Estimated blood loss (mL): 0 Operative findings:: Tearing of the lateral meniscus incarcerated between arthritis causing catching mechanical locking of the knee. Operative note:: Patient was identified preoperatively. Right knee marked with yes my initials. Transported operative suite. Placed upon operating bed. General anesthesia administered and airway secured. Right lower extremity prepped and draped within the knee messer. Once prepped and draped final operative timeout performed to identify proper patient procedure and extremity. Everyone involved in the case agreed. There were no counter indications to beginning. He did receive preoperative antibiotics. Marking pen was used to birgit the bony landmarks in the and standard portal sites. Esmarch was used to exsanguinate the extremity pneumatic tourniquet inflated to 300 mmHg. Skin knife was used incise standard anterior lateral portal and blunt with trocar was placed in patellofemoral joint exchange with a camera. Immediately upon entering the patellofemoral joint there is a large effusion that was evacuated yellow-colored. Within the patellofemoral joint I swept into the medial gutter there was some s carring of the medial soft tissues swept into the medial joint line within the medial joint line 18-gauge spinal needle was used to make anterior medial portal this exchanged with a probe there is complex tearing of the posterior horn and the body of the medial meniscus. There is also grade IV chondromalacia with full-thickness cartilage loss along the medial femoral condyle and the medial tibia. There is impinging soft tissue of the meniscus pinching between the full-thickness chondromalacia which was debrided with sucker shaver straight biter for partial medial meniscectomy. Attention brought intercondylar notch the ACL was not present. Attention was then brought into the lateral joint line. Within the lateral joint line there is also a large macerated tear of the posterior horn body and anterior horn of the lateral meniscus this tissue was directly impinging on grade IV chondromalacia as well there is crepitus with range of motion with a large tear incarcerated in the lateral joint line using a combination of straight biter and sucker shaver electrocautery partial lateral meniscectomy was performed back to stable rim this resolved the [place] like clicking there was of the knee Swelling to the lateral gutter and back to the patellofemoral joint there was also grade IV chondromalacia trochlea and patella. No further pathology was seen the camera was removed joint was drained local anesthesia infiltrated the portal sites skin closed with nylon stitch sterile dressing placed from toe to thigh patient waken from anesthesia taken recovery stable condition Condition: stable Disposition: PACU Complications:: None apparent
--- NOTE | 2024-10-23 12:51 | P.PNANES_ITS ---
[facility] Anesthesia Record Part I Anesthesia Record I Intake, IV Amount: 750 Hydration: Adequate Estimated blood loss (mL): 10 Urine output (mL): 0 Blood Products used (#): none Blood Pressure: 104/63 SaO2: 92 Pulse Rate: 69 Airway Patency: Patent Respiratory Rate: 12 Temperature: 97.8 F Patient is:: Drowsy and Stable Stable to PACU at:: 12:45
[2024-10-23 13:20] LABS: POC Glucose,Bedside 96 (70-110)
[2024-10-23 16:25] LABS: Creatinine,Urine Random 178 mg/dL (Not Estab.)
--- NOTE | 2024-10-24 08:06 | EXP.ANES.II ---
[facility] Anesthesia Record Part II Anesthesia Record Part II Discharge Time: 13:00 Destination: Surgical Day Care (OP Surgery) PACU nurse assessment reviewed?: Yes Patient Condition:: Good Anesthesia Complications:: None Swallowing reflex intact?: Yes Airway Patency: Patent Cyanosis?: No Blood Pressure: 120/71 SaO2: 98 Respiratory Rate: 16 Pulse Rate: 74 Temperature: 97.8 F Mental Status: Alert & Oriented Pain level:: 0 Nausea and/or vomitting:: None Intake, IV Amount: 750 Hydration: Adequate
[2024-10-24 08:07] VITALS: BP 120/71; PULSE 74; RESP 16; TEMP 36.6; O2SAT 98
== END 2024-10-23 13:34 | disposition home or self-care (01) ==
PROVIDERS: Family Medicine; PCP Family Medicine; Visit Provider Orthopaedic Surgery
PROC: (CPT 29870; principal; 2024-10-23 10:15)
DX: S83.231A Complex tear of medial meniscus, current injury, right knee, initial encounter (principal); S83.271A Complex tear of lateral meniscus, current injury, right knee, initial encounter; M17.11 Unilateral primary osteoarthritis, right knee; M94.261 Chondromalacia, right knee
CPT/HCPCS: 29880; 82043; 82570; 82962; 96374; J0736; J1100; J2250; J2405; J3010; J7120

== ENCOUNTER 2024-12-05 12:00 | Outpatient (RCR) | payer MEDICARE, SELFPAY | END 2024-12-05 23:59 | disposition home or self-care (01) | LOC: PT 12:00 | PROVIDERS: Visit Provider Orthopaedic Surgery | DX: M25.561 Pain in right knee (principal); G89.29 Other chronic pain | CPT/HCPCS: 97760 ==

== ENCOUNTER 2024-12-13 08:43 | Outpatient (CLI) | payer MEDICARE, SELFPAY ==
--- NOTE | 2024-12-13 08:47 | CA_ITS ---
FINAL REPORT TECHNIQUE: Ultrasound images of the deep venous system were obtained from the left groin to the calf veins. CLINICAL HISTORY: LLE edema x 1 month. ASA 81 mg qDay Right Knee Procedure 2 wks ago a gel shot in knee. COMPARISON: None FINDINGS: The deep venous system is normally compressible. Normal flow is identified. IMPRESSION: No evidence of left lower extremity DVT. Reviewed, Interpreted and Dictated by Benjy Ward MD Transcribed by Destiny Tineo Authenticated and [facility]
== END 2024-12-13 23:59 | disposition home or self-care (01) ==
LOC: RT 08:44
PROVIDERS: PCP Family Medicine; Visit Provider Nurse Practitioner Family
DX: R60.0 Localized edema (principal); Z98.890 Other specified postprocedural states
CPT/HCPCS: 93971

== ENCOUNTER 2025-07-31 15:49 | Outpatient (CLI) | payer MEDICARE, SELFPAY ==
--- OUTSIDE RECORDS SUMMARY | 2025-07-31 15:51 | XMS_ITS | Encounter Summary ---
Author Organization Healthcare Address [address] [place] [address] Care Team Providers Care Nut Culler Name Role Phone Brody Aguilera MD Primary Care Provider [phone] Brody Aguilera MD Primary Care Provider +- [phone] Brody Aguilera MD Unavailable [phone] Encounter Details Date Type Department Care Team (Late st Contact Info) Description 05/05/2021 Orders Only External Location [address] [place] [address] Azul Braswell, [employer] [address] [place] [address] Social History Tobacco Use Types Packs/Day Years Used Date Smoking Tobacco: Never Assessed Sex and Gender Information Value Date Recorded Sex Assigned at Not on file Legal Sex Male 7:30 PM EDT Gender Identity Not on file Sexual Orientation Not on file documented as of this encounter Plan of Treatment Not on file documented as of this encounter Procedures Procedure Name Priority Date/Time Associated Diagnosis Comments MR ABDOMEN WO IV CONTRAST 05/05/2021 9:39 AM EDT documented in this encounter Results * MR Abdomen wo IV Contrast (05/05/2021 9:39 AM EDT) Anatomical Region Laterality Modality Abdomen Magnetic Resonan ce 05/05/2021 9:39 AM EDT us Azul Braswell [facility] IMG MRI PROCEDURES Final R esult documented in this encounter Visit Diagnoses Not on filedocumented in this encounter Care Teams Nut Culler Relationship Specialty Start Date End Date Brody Aguilera MD [address] [place] [id number] PCP - General 04/02/21 09/19/22 Brody Aguilera MD [address] [place] [id number] PCP - General 09/20/22 Brody Aguilera MD [address] [place] [id number] 09/20/22 documented as of this encounter
--- OUTSIDE RECORDS SUMMARY | 2025-07-31 15:51 | XMS_ITS | Clinical Summary ---
Author Organization [facility] Address [address] [place] [address] Care Team Providers Care Hot Knife Foxing Cutter Name Role Phone Brody Aguilera MD Primary Care Provider [phone] Brody Aguilera MD Unavailable [phone] Allergies Active Allergy Reactions Criticality Noted Date Comments Latex Other - please docum ent in the comment field Low 10/12/2021 Morphine Other - please docum ent in the comment field Low 10/22/2021 blisters Morphine Itching Medium 09/20/2022 Penicillins Hives,Other - please document in the comment field Medium 11/27/2015 Penicillins Itching Medium 09/20/2022 Promethazine Hives Medium 10/22/2021 Statins Other - please docum ent in the comment field Low 03/20/2021 Sulfa Drugs Other - please docum ent in the comment field Low 10/12/2021 Sulfa Drugs Itching,Other - plea se document in the comment field Medium 11/27/2015 Ketorolac Tromethamine Hives Medium 10/22/2021 Tramadol Hives Medium 10/22/2021 Medications allopurinol (Zyloprim) 300 MG tablet 1 Active acetaminophen (Tylenol) 325 MG tablet Take 650 mg by mouth. 1 Active aspirin 81 MG chewable tablet Chew 81 mg 1 (one) time each day. Active bisoprolol (Zebeta) 10 MG tablet 1 (one) time each day. 1 Active clonazePAM (KlonoPIN) 0.5 MG tablet Klonopin 0.5 mg tablet Bedtime 0 Active diazePAM (Valium) 10 MG tablet 1 Active diclofenac (Voltaren) 75 MG EC tablet every 12 (twelve) hours. 1 Active furosemide (Lasix) 40 MG tablet Lasix 40 mg tablet Daily 1 Active gabapentin (Neurontin) 300 MG capsule Take one capsule a day for 5 days. Then take 2 a day for 5 days. Then take 3 a day for 5 days. 1 Active LORazepam (Ativan) 0.5 MG tablet 1 Active losartan (Cozaar) 25 MG tablet Take 25 mg by mouth 1 (one) time each day. Active montelukast (Singulair) 10 MG tablet 1 Active omeprazole (PriLOSEC) [address] capsule 1 Active pantoprazole (ProtoNix) 20 MG EC tablet Take 40 mg by mouth. Active Multiple Vitamins-Mineral s (SUPER ANTIOXIDANT PO) Take by mouth 1 (one) time each day. Active Aspirin Buf,CaCarb-MgCar b-MgO, 81 MG tablet 1 Active dicyclomine (Bentyl) 10 MG capsule Take 10 mg by mouth 4 (four) times a day. Active cyclobenzaprine (Flexeril) 10 MG tabletIndication s:Acute pain of left shoulder,Rotator cuff tendinitis, left,S/P reverse total shoulder arthroplasty, left Take 0.5 tablets (5 mg total) by mouth at night if needed for muscle spasms. 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 Overview (01/24/2023): Added automatically from request for surgery [id number] HTN (hypertension) 10/22/2021 Asthma 10/22/2021 Presbyacusis 10/22/2021 Family History Medical History Relation Name Comments Diabetes Father Hypertension Father Diabetes Mother Hypertension Mother Diabetes Other 1 Hypertension Other 2 Relation Name Status Comments Father Mother Other 1 Other 2 Social History Tobacco Use Types Packs/Day Years Used Date Smoking Tobacco: Former Smokeless Tobacco: Never Tobacco Cessation:Counseling Given: Not Answered Alcohol Use Standard Drinks/Week Comments Never 0 (1 standard drink = 0.6 oz pur e alcohol) PHQ-2 Answer Date Recorded Patient Health Questionnaire-2 Score 0 12/21/2023 PHQ-2A Answer Date Recorded Patient Health Questionnaire-2 Score 0 03/07/2023 Sex and Gender Information Value Date Recorded Sex Assigned at Not on file Legal Sex Male 7:30 PM EDT Gender Identity Not on file Sexual Orientation Not on file Last Filed Vital Signs Vital Sign Reading Time Taken Comments Blood Pressure 145/72 12/21/2023 2:23 PM EST Pulse 66 02/28/2023 7:33 AM EDT Temperature 36.4 C (97.6 F) 10/22/2021 4:35 PM EST Respiratory Rate 18 10/22/2021 5:10 PM EST Oxygen Saturation 94% 02/28/2023 7:33 AM EDT Inhaled Oxygen Concentration - - Weight 91.6 kg (202 lb) 07/18/2024 3:04 PM EDT Height 172.7 cm (5' 8 ) 07/18/2024 3:04 PM EDT Body Mass Index 30.71 07/18/2024 3:04 PM EDT Plan of Treatment Health Maintenance Due Date Last Done Comments [facility]-Hepatitis C Screening 1960 [facility]-Medicare Annual Wellness (AWV) 1960 [facility]-Infant/Child/Adol SDOH Screenings 1960 [facility]- SDOH Screenings 1978 [facility]-Adult SDOH Screenings 1978 [facility]-DTaP,Tdap,and Td Vaccines (1 - Tdap) 1979 CT Colonography 2005 Colonoscopy 2005 FIT-DNA 2005 FIT 2005 FOBT 2005 Sigmoidoscopy 2005 [facility]-Colorectal Cancer Screening 2005 [facility]-Zoster Vaccines (2 of 3) 11/07/2017 09/12/2017 [facility]-RSV Vaccine: 60+ Years or (1 - Risk 60-74 years 1-dose series) 2020 [facility]-Pneumococcal Vaccine: 50+ Years (2 of 2 - PCV) 11/07/2024 11/07/2023 [facility]-Depression Screening 12/21/2024 12/21/2023 [id number] Vaccine ( season) 2025 11/25/2023, 10/04/2022, 03/31/2022, Additional history exists [facility]-Influenza Vaccine (#1) 2025 [facility]-Obesity Intervention Completed 024, 12/21/2023, 08/02/2023, Additional history exists HPV Vaccines Aged Out No longer eligi ble based on patient's age to complete this topic [facility]-HIB Vaccines Aged Out No longer e ligible based on patient's age to complete this topic [facility]-Hepatitis A Vaccines Aged Out No longer eligible based on patient's age to complete this topic [facility]-IPV Vaccines Aged Out No longer e ligible based on patient's age to complete this topic [facility]-Rotavirus Vaccines Aged Out No lo nger eligible based on patient's age to complete this topic Insurance [facility] [place] [address] Care Teams Hot Knife Foxing Cutter Relationship Specialty Start Date End Date Brody Aguilera MD [address] [place] [address] PCP - General 09/20/22 Brody Aguilera MD [address] [place] [address] 09/20/22
--- OUTSIDE RECORDS SUMMARY | 2025-07-31 15:51 | XMS_ITS | Encounter Summary ---
Author Organization [facility] Address [address] [place] [address] Care Team Providers Care Maintenance Repairer Name Role Phone Brody Aguilera MD Primary Care Provider [phone] Brody Aguilera MD Primary Care Provider [phone]- [phone] Brody Aguilera MD Unavailable [phone] Encounter Details Date Type Department Care Team (Late st Contact Info) Description 04/22/2021 Orders Only External Location [address] [place] [address] Provider, External Social History Tobacco Use Types Packs/Day Years [...] Procedure Name Priority Date/Time Associated Diagnosis Comments CT ABDOMEN PELVIS W AND WO IV CONTRAST 04/22/2021 10:57 AM EDT documented in this encounter Results * CT Abdomen Pelvis w and wo IV Contrast (04/22/2021 10:57 AM EDT) Anatomical Region Laterality Modality Abdomen, Pelvis Computed Tomogra phy 04/22/2021 10:5 7 AM EDT us External Provider IMG CT PROCEDURES Final Result documented in this encounter Visit Diagnoses Not on filedocumented in this encounter Care Teams Maintenance Repairer Relationship Specialty Start Date End Date Brody Aguilera MD [address] [place] [address] PCP - General 04/02/21 09/19/22 Brody Aguilera MD [address] [place] [address] PCP - General 09/20/22 Brody Aguilera MD [address] [place] [address] 09/20/22 documented as of this encounter
--- OUTSIDE RECORDS SUMMARY | 2025-07-31 15:51 | XMS_ITS | Clinical Summary ---
Author Organization [facility] Address [address] [place] [address] Care Team Providers Care Staff Midwife/Apprenticeship Director Name Role Phone Brody Aguilera MD Primary Care Provider Allergies Active Allergy Reactions Criticality Noted Date Comments Penicillins Hives 03/20/2021 Statins Myalgia 03/20/2021 Sulfa Antibiotics Hives 03/20/2021 Tape Other (See Comments) 03/20/2021 Skin peels off Medications aspirin 81 MG chewable tablet Chew 81 mg Daily. Active losartan (COZAAR) 25 MG tablet Take 25 mg by mouth Daily. Active hydrOXYzine pamoate (VISTARIL) 25 MG capsule Take 25 mg by mouth Every Night. Active clonazePAM (KlonoPIN) 0.5 MG tablet Take 0.5 mg by mouth 3 (Three) Times a Day As Needed. Active gabapentin (NEURONTIN) 300 MG capsule Take 300 mg by mouth 2 (Two) Times a Day. Active acetaminophen (TYLENOL) 325 MG tablet Take 2 tablets by mouth Every 6 (Six) Hours As Needed for Mild Pain or Moderate Pain . 03/21/2021 Active furosemide (LASIX) 40 MG tablet Take 1 tablet by mouth Daily. Hold for next two days and resume 5/5 if you are eating and drinking normally. 03/24/2021 Active Active Problems Problem Noted Date Diagnosed Date Gallstone pancreatitis 03/20/2021 HTN (hypertension) 03/20/2021 GERD without esophagitis 03/20/2021 Leukocytosis 03/20/2021 Hyperglycemia 03/20/2021 History of smoking 03/20/2021 Obesity (BMI 30-39.9) 03/20/2021 Immunizations Immunization Administration Dates Next Due COVID-19 (PFIZER) Purple Cap Monovalent 02/04/20 21,01/13/2021 Social History Tobacco Use Types Packs/Day Years Used Date Smoking Tobacco: Former Cigarettes Q uit: 12/21/2013 Smokeless Tobacco: Never Tobacco Cessation:Counseling Given: No Alcohol Use Standard Drinks/Week Comments Yes 1 (1 standard drink = 0.6 oz pur e alcohol) Abuse Screen Answer Date Recorded Unsafe at Home or Work/School Not on file Feels Threatened by Someone? Not on file 07/2023 Does Anyone Keep You from Co ntacting Others or Doint Things Outside the Home? Not on file 08/28/2023 Physical Sign of Abuse Present Not on file 1 Housing Stability Answer Date Recorded Current Living Arrangements Not on file 07/2023 Potentially Unsafe Housing Conditions Not on treasure e 08/28/2023 Family and Community Support Answer Solitario e Recorded Help with Day-to-Day Activities Not on file 08/28/2023 Lonely or Isolated Not on file 08/28/2023 Employment Answer Date Recorded Do you want help finding or keeping work or a ye b? Not on file 08/28/2023 Disabilities Answer Date Recorded Concentrating, Remembering, or Making Decisions Difficulty Not on file 08/28/2023 Doing Errands Independently Difficulty Not on fi le 08/28/2023 Education Answer Date Recorded Help with school or training? Not on file Preferred Language Not on file 08/28/2023 Sex and Gender Information Value Date Recorded Sex Assigned at Not on file Legal Sex Male 11:15 AM EDT Gender Identity Not on file Sexual Orientation Not on file Last Filed Vital Signs Vital Sign Reading Time Taken Comments Blood Pressure 160/97 03/21/2021 12:21 PM EDT Pulse 89 03/21/2021 12:21 PM EDT Temperature 36.9 C (98.5 F) 03/21/2021 12:21 PM EDT Respiratory Rate 16 03/21/2021 12:21 PM EDT Oxygen Saturation 95% 03/21/2021 12:21 PM EDT Inhaled Oxygen Concentration - - Weight 98.1 kg (216 lb 4.8 oz) 03/21/2021 2:06 A M EDT Height 175.3 cm (5' 9 ) 03/21/2021 2:06 AM EDT Body Mass Index 31.94 03/21/2021 2:06 AM EDT Plan of Treatment Health Maintenance Due Date Last Done Comments ANNUAL PHYSICAL 1960 HEPATITIS C SCREENING 1960 TDAP/TD VACCINES (1 - Tdap) 1979 COLOGUARD 2005 COLON CANCER SCREENING 5 YEA R SIGMOIDOSCOPY 2005 COLONOSCOPY [address] SCREENING [address] COLONOGRAPHY 2005 FECAL OCCULT BLOOD TEST 2005 FIT Testing (1 year) 2005 Pneumococcal Vaccine 50+ (1 of 1 - PCV) 2010 ZOSTER VACCINE (2 of 3) 11/07/2017 09/12/2017 AAA SCREEN ONCE 2025 COVID-19 Vaccine ( season) 2025, 01/13/2021 INFLUENZA VACCINE 08/20/2025 Insurance MEDICARE ADVANTAGE Advance Directives * CPR (Attempt to Resuscitate) (Latest Code Status on File) Date Activated Date Inactivated Comments 03/20/2021 9:34 PM 03/21/2021 7:09 PM Question Answer Comments Code Status (Patient has no pulse and is not breathing): CPR (Attempt to Resuscitate) Medical Interventions (Patie nt has pulse or is breathing): Full Care Teams Staff Midwife/Apprenticeship Director Relationship Specialty Start Date End Date Brody Aguilera MD [address] [facility] [address] [facility] [address] [place] [address] PCP - General Family Medicine 01/13/21
--- OUTSIDE RECORDS SUMMARY | 2025-07-31 15:51 | XMS_ITS | Clinical Summary ---
Author Organization [facility] Address [address] [facility] [place] [address] Care Team Providers Care Realtime Reporter Name Role Phone Unavailable Primary Care Provider Unavailabl e Allergies Active Allergy Reactions Criticality Noted Date Comments Penicillins None 11/27/2015 Sulfa (Sulfonamide Antibiotics) None 06/2016 Medications FUROSEMIDE PO Take by mouth. Active LISINOPRIL PO Take by mouth. Active pantoprazole (PROTONIX) 20 mg Take 40 mg by mouth Daily. Active CLONAZEPAM PO Take by mouth. Active HYDROcodone-acet aminophen 10-300 mg Tab Take by mouth Every 6 hours. Active Active Problems Problem Noted Date Diagnosed Date Sciatica 11/28/2015 Elevated CPK 11/27/2015 Drug side effects 11/27/2015 Resolved Problems Problem Noted Date Diagnosed Date Resolved Date Notalgia 11/28/2015 11/28/2015 Notalgia 11/28/2015 11/28/2015 Notalgia 11/27/2015 11/28/2015 Family History Medical History Relation Name Comments Gout Father Hypertension Father Alcohol Abuse Mother Relation Name Status Comments Father Mother Social History Tobacco Use Types Packs/Day Years Used Date Smoking Tobacco: Never Alcohol Use Standard Drinks/Week Comments No 0 (1 standard drink = 0.6 oz pur e alcohol) Sex and Gender Information Value Date Recorded Sex Assigned at Not on file Legal Sex Male 4:26 PM EST Gender Identity Not on file Sexual Orientation Not on file Last Filed Vital Signs Vital Sign Reading Time Taken Comments Blood Pressure 140/90 11/27/2015 9:15 AM EST Pulse 88 11/27/2015 9:15 AM EST Temperature - - Respiratory Rate 16 11/27/2015 9:15 AM EST Oxygen Saturation - - Inhaled Oxygen Concentration - - Weight 108.9 kg (240 lb) 11/27/2015 9:15 AM EST Height 175.3 cm (5' 9 ) 11/27/2015 9:15 AM EST Body Mass Index 35.44 11/27/2015 9:15 AM EST Plan of Treatment Health Maintenance Due Date Last Done Comments COLOGUARD 1960 COLONOSCOPY 1960 Colorectal Screening Combination 1960 FIT 1960 HEP C SCREENING 1960 SIGMOIDOSCOPY 1960 ANNUAL WELLNESS EXAM 1963 DTAP/TDAP/TD VACCINE (1 - Tdap) 1979 PNEUMOCOCCAL VACCINE 65+ YEA RS (1 of 1 - PCV) 2010 Shingles Vaccine (Shingrix) (1 of 2) 2010 INFLUENZA VACCINE (#1) 2025 HEP A VACCINE Aged Out No longer elig ible based on patient's age to complete this topic HIB VACCINE Aged Out No longer eligi ble based on patient's age to complete this topic ROTOVIRUS VACCINE Aged Out No longer eligible based on patient's age to complete this topic Insurance [address] [address]
--- OUTSIDE RECORDS SUMMARY | 2025-07-31 15:51 | XMS_ITS | Encounter Summary ---
Author Organization [facility] Address [address] [place] [address] Care Team Providers Care Manager Reimbursement Name Role Phone Brody Aguilera MD Primary Care Provider [phone] Brody Aguilera MD Primary Care Provider [phone]- [phone] Brody Aguilera MD Unavailable [phone] Encounter Details Date Type Department Care Team (Late st Contact Info) Description 04/22/2021 Orders Only External Location [address] [place] [address] Provider, External Social History Tobacco Use Types [...] PELVIS W AND WO IV CONTRAST 04/22/2021 11:05 AM EDT documented in this encounter Results * CT Abdomen Pelvis w and wo IV Contrast (04/22/2021 11:05 AM EDT) Anatomical Region Laterality Modality Abdomen, Pelvis Computed Tomogra phy 04/22/2021 11:0 5 AM EDT us External Provider IMG CT PROCEDURES Final Result documented in this encounter Visit Diagnoses Not on filedocumented in this encounter Care Teams Manager Reimbursement Relationship Specialty Start Date End Date Brody Aguilera MD [address] [place] [address] PCP - General 04/02/21 09/19/22 Brody Aguilera MD [address] [place] [address] PCP - General 09/20/22 Brody Aguilera MD [address] [place] [address] 09/20/22 documented as of this encounter
[2025-07-31 17:42] LABS: Alanine Aminotransferase 43 U/L (12-78); Albumin Level 4.7 g/dl (3.5-5.0); Alkaline Phosphatase 104 U/L (38-126); Anion Gap 15.7 mEq/L (5-15); Aspartate Amino Transferase 42 U/L (17-59); Bilirubin,Direct 0.2 mg/dl (0.0-0.4); Bilirubin,Indirect 0.4 mg/dL (0.0-0.9); Bilirubin,Total 0.6 mg/dl (0.2-1.3); Bilirubin,Unconjugated 0.4 mg/dL (0.0-1.1); Blood Urea Nitrogen 30 mg/dl (9-20); Calcium 9.4 mg/dl (8.4-10.2); Carbon Dioxide 23 mmol/L (22.0-30.0); Chloride 106 mmol/L (98-107); Creatinine,Serum 1.00 mg/dl (0.66-1.25); Estimated Glomerular Filt Rate 75 ml/min (>60); GFR (African American) 91 ML/MIN (>60); Glucose 83 mg/dl (74-100); Magnesium 1.2 mg/dl (1.6-2.3); Potassium 4.7 mmoL/L (3.5-5.1); Sodium 140 mmol/L (136-145); Total Protein,Serum 7.3 g/dl (6.3-8.2)
[2025-07-31 18:00] LABS: Free Thyroxine Index 4.5 ug/dL (5.93-13.13); T4 (Thyroxine) 10.8 ug/dl (5.53-11.0); Triiodothryronine (T3) Uptake 42 % (23.5-40.5)
[2025-07-31 18:13] LABS: Thyroid Stimulating Hormone 0.62 uIU/mL (0.465-4.68)
== END 2025-07-31 23:59 | disposition home or self-care (01) ==
LOC: LAB 15:49
PROVIDERS: PCP Family Medicine; Visit Provider Internal Medicine
DX: I25.10 Atherosclerotic heart disease of native coronary artery without angina pectoris (principal); I11.9 Hypertensive heart disease without heart failure; E78.5 Hyperlipidemia, unspecified
CPT/HCPCS: 36415; 80048; 80076; 83735; 84436; 84443; 84479

== ENCOUNTER 2025-08-08 14:19 | Outpatient (CLI) | payer MEDICARE, SELFPAY ==
--- OUTSIDE RECORDS SUMMARY | 2025-08-08 14:22 | XMS_ITS | Encounter Summary ---
Author Organization [facility] Address [address] [place] [address] Care Team Providers Care Barber Tool Sharpener Name Role Phone Brody Aguilera MD Primary Care Provider [phone] Brody Aguilera MD Primary Care Provider [phone]- [phone] Brody Aguilera MD Unavailable [phone] Encounter Details Date Type Department Care Team (Late st Contact Info) Description 05/05/2021 Orders Only External Location [address] [place] [address] Azul Braswell, WIND TURBINE ELECTRICAL ENGINEER [address] [place] [address] Social History Tobacco Use Types Packs/Day Years [...] 05/05/2021 9:39 AM EDT us Azul Braswell WIND TURBINE ELECTRICAL ENGINEER IMG MRI PROCEDURES Final R esult documented in this encounter Visit Diagnoses Not on filedocumented in this encounter Care Teams Barber Tool Sharpener Relationship Specialty Start Date End Date Brody Aguilera MD [address] [place] [address] PCP - General 04/02/21 09/19/22 Brody Aguilera MD [address] [place] [address] PCP - General 09/20/22 Brody Aguilera MD [address] [place] [address] 09/20/22 documented as of this encounter
--- OUTSIDE RECORDS SUMMARY | 2025-08-08 14:22 | XMS_ITS | Clinical Summary ---
Author Organization [facility] Address [address] [place] [address] Care Team Providers Care Guide Escort Name Role Phone Brody Aguilera MD Primary Care Provider [phone]- [phone] Brody Aguilera MD Unavailable [phone] Allergies Active Allergy Reactions Criticality Noted Date [...] (01/24/2023): Added automatically from request for surgery [id number] HTN (hypertension) 10/22/2021 Asthma 10/22/2021 Presbyacusis 10/22/2021 [...] PCV) 11/07/2024 11/07/2023 [facility]-Depression Screening 12/21/2024 12/21/2023 [id number] Vaccine ( season) 2025 11/25/2023, 10/04/2022, 03/31/2022, [...] patient's age to complete this topic Insurance [facility] [place] [phone] Care Teams Guide Escort Relationship Specialty Start Date End Date Brody Aguilera MD [address] [facility] [address] [place] [address] PCP - General 09/20/22 Brody Aguilera MD [address] [facility] [address] [place] [address] 09/20/22
--- OUTSIDE RECORDS SUMMARY | 2025-08-08 14:22 | XMS_ITS ---
Author Organization Unknown Results OrderDate OrderTestName ResultName ResultDate Value Units Range AbnormalFlag ResultStatus ObservationNotes TestCode ResultCode DateRecorded AccessionNumber DiagnosticSectionCode DiagnosticSectionName Sequence Interpretation Cust om 10/23/2024 00:00:00 H-Creatinine Urine, random UCREAT [id number]:00:00 178 mg/dL Not Estab. - mg/dL Reviewed Surekha Lozano 10/26/2024 9:33:29 AM > Pt informed H-Creatinine Urine, random 10/23/2024 00:00:00112/24/2023 00:00:62V-[id number]9U04:00:006.900 mg/L0-16.7 - mg/LRevieSurekha Ontiveros 10/26/2024 9:33:47 AM > Pt informed Coding H-MICROALB Coding MICROALB 10/23/2024 00:00: 00:00:00P-Microalbumin/Creatinine, Random Urine SampleMicroalbumin, Urine, Jlyhtg2178-25-58C54:00:000.5mg/dL- mg/dLReviewed Enriqueta Aguilera 05/03/2025 08:11:00 PM EDT > See phone encounter Coding P-Microalbumin/Creatinine, R andom Urine Sample Coding Microalbumin, Urine, Random 05/01/2025 00:00:00005/01/2025 00:00:00P-Microalbumin/Creatinine, Random Urine SampleCreatinine, Xzbjy9285-57-20O31:00:0052.9mg/dL- mg/dLReEnriqueta Alvarez 05/03/2025 08:11:00 PM EDT > See phone encounter Coding P-Microalbumin/Creatinine, R andom Urine Sample Coding Creatinine, Urine 05/01/2025 00:00: 00:00:00P-Microalbumin/Creatinine, Random Urine SampleAlbumin/Creatinine Ratio, Oszac6129-63-00A11:00:009ug/mg0-30 - ug/mg Enriqueta Luna 05/03/2025 08:11:00 PM EDT > See phone encounter Coding P-Microalbumin/Creatinine, R andom Urine Sample Coding Albumin/Creatinine Ratio, Ur ine 05/01/2025 00:00: 00:00:86S-SHJRIJ6269-75CWZJKJ6625-67-66M18:00:000.87ng/mL<4.00 - ng/mLREnriqueta Contreras 05/03/2025 08:11:00 PM EDT > See phone encounter Coding P-PSA Coding PSA 05/01/2025 00:00: 00:00:00P-Lipid PanelTriglycerides 4410-54-98F51:00:68259sv/dL<150 - mg/dLEnriqueta Herman 05/03/2025 08:11:00 PM EDT > See phone encounter Coding P-Lipid Panel Coding Triglycerides 05/01/2025 00:00: 00:00:00P-Lipid PanelNon-HDL Cholesterol 8023-88-98N74:00:0098mg/dL<130 - mg/dLEnriqueta Luna 05/03/2025 08:11:00 PM EDT > See phone encounter Coding P-Lipid Panel Coding Non-HDL Cholesterol 05/01/2025 00:00: 00:00:00P-Lipid PanelLDL/HDL Ratio 7135-91-38P24:00:001.6Ratio<3.3 - RatioEnriqueta Luna 05/03/2025 08:11:00 PM EDT > See phone encounter Coding P-Lipid Panel Coding LDL/HDL Ratio 05/01/2025 00:00: 00:00:00P-Lipid PanelLDL Cholesterol (Calculation) 2047-56-28L59:00:0058mg/dL<130 - mg/dLEnriqueta Luna 05/03/2025 08:11:00 PM EDT > See phone encounter Coding P-Lipid Panel Coding LDL Cholesterol (Calculation ) 05/01/2025 00:00: 00:00:00P-Lipid PanelHDL Cholesterol 7065-43-22J22:00:0036mg/dL>39 - mg/dLEnriqueta White 05/03/2025 08:11:00 PM EDT > See phone encounter Coding P-Lipid Panel Coding HDL Cholesterol 05/01/2025 00:00: 00:00:00P-Lipid PanelCholesterol 5836-91-78O71:00:35918yx/dL<200 - mg/dLEnriqueta Luna 05/03/2025 08:11:00 PM EDT > See phone encounter Coding P-Lipid Panel Coding Cholesterol 05/01/2025 00:00: 00:00:00P-Lipid PanelCholesterol / HDL Ratio 5083-79-06S72:00:003.80Oxcqy2.00-4.99 - RatioEnriqueta Luna 05/03/2025 08:11:00 PM EDT > See phone encounter Coding P-Lipid Panel Coding Cholesterol / HDL Ratio 05/01/2025 00:00: 00:00:00P-Comprehensive Metabolic Panel (CMP)eGFR by Pcoovxtemm2875-34-09X20:00:0076mL/min/1.73m2>59 - mL/min/1.56h9CdrftcizEnriqueta Baker 05/03/2025 08:11:00 PM EDT > See phone encounter Coding P-Comprehensive Metabolic Pa aldair (CMP) 05/01/2025 00:00: 00:00:00P-Comprehensive Metabolic Panel (CMP) Daxnwdg3129-29-61Z72:00:007.4g/dL6.0-8.3 - g/dLEnriqueta Luna 05/03/2025 08:11:00 PM EDT > See phone encounter Coding P-Comprehensive Metabolic Pa aldair (CMP) Coding Protein 05/01/2025 00:00: 00:00:00P-Comprehensive Metabolic Panel (CMP) Okyzyl2986-68-56N99:00:25780waha/E093-255 - mmol/LRevieEnriqueta [place]pa 05/03/2025 08:11:00 PM EDT > See phone encounter Coding P-Comprehensive Metabolic Pa aldair (CMP) Coding Sodium 05/01/2025 00:00: 00:00:00P-Comprehensive Metabolic Panel (CMP) Kycqslzgn9956-02-30V31:00:005.5mmol/L3.5-5.3 - mmol/LHReEnriqueta Alvarez 05/03/2025 08:11:00 PM EDT > See phone encounter Coding P-Comprehensive Metabolic Pa aldair (CMP) Coding Potassium 05/01/2025 00:00: 00:00:00P-Comprehensive Metabolic Panel (CMP) Fmotpvt0718-59-76P97:00:30088mr/dL65-99 - mg/dLHRevMiguelleetEnriqueta 05/03/2025 08:11:00 PM EDT > See phone encounter Coding P-Comprehensive Metabolic Pa aldair (CMP) Coding Glucose 05/01/2025 00:00: 00:00:00P-Comprehensive Metabolic Panel (CMP) Homjgehihn3802-74-25K86:00:001.08mg/dL0.70-1.30 - mg/dLEnriqueta Luna 05/03/2025 08:11:00 PM EDT > See phone encounter Coding P-Comprehensive Metabolic Pa aldair (CMP) Coding Creatinine 05/01/2025 00:00: 00:00:00P-Comprehensive Metabolic Panel (CMP)CO2 5751-40-17V31:00:0025mmol/L22-32 - mmol/LReviemireilledNorfleetEnriqueta 05/03/2025 08:11:00 PM EDT > See phone encounter Coding P-Comprehensive Metabolic Pa aldair (CMP) Coding CO2 05/01/2025 00:00: 00:00:00P-Comprehensive Metabolic Panel (CMP) Tchedsio1914-39-43U55:00:05799njie/L97-108 - mmol/LREnriqueta Contreras 05/03/2025 08:11:00 PM EDT > See phone encounter Coding P-Comprehensive Metabolic Pa aldair (CMP) Coding Chloride 05/01/2025 00:00: 00:00:00P-Comprehensive Metabolic Panel (CMP) Oigasri9652-91-17A23:00:009.7mg/dL8.6-10.4 - mg/dLEnriqueta Luna 05/03/2025 08:11:00 PM EDT > See phone encounter Coding P-Comprehensive Metabolic Pa aldair (CMP) Coding Calcium 05/01/2025 00:00: 00:00:00P-Comprehensive Metabolic Panel (CMP)BUN 6854-71-56Q99:00:0035mg/dL8-23 - mg/dLHREnriqueta Contreras 05/03/2025 08:11:00 PM EDT > See phone encounter Coding P-Comprehensive Metabolic Pa aldair (CMP) Coding BUN 05/01/2025 00:00: 00:00:00P-Comprehensive Metabolic Panel (CMP) Bilirubin, Lyahx0922-24-29O49:00:000.4mg/dL<0.2-1.2 - mg/dLEnriqueta Luna 05/03/2025 08:11:00 PM EDT > See phone encounter Coding P-Comprehensive Metabolic Pa aldair (CMP) Coding Bilirubin, Total 05/01/2025 00:00: 00:00:00P-Comprehensive Metabolic Panel (CMP)AST (SGOT)0622-98-39K20:00:0026IU/L<5-46 - IU/LRevSoniaorfEnriqueta shi 05/03/2025 08:11:00 PM EDT > See phone encounter Coding P-Comprehensive Metabolic Pa aldair (CMP) Coding AST (SGOT) 05/01/2025 00:00: 00:00:00P-Comprehensive Metabolic Panel (CMP)ALT (SGPT)3035-06-31A92:00:0032IU/L<5-55 - IU/LREnriqueta Contreras 05/03/2025 08:11:00 PM EDT > See phone encounter Coding P-Comprehensive Metabolic Pa aldair (CMP) Coding ALT (SGPT) 05/01/2025 00:00: 00:00:00P-Comprehensive Metabolic Panel (CMP) Alkaline Diajtxstwpe5931-39-10C95:00:12333PU/L40-129 - IU/Enriqueta White 05/03/2025 08:11:00 PM EDT > See phone encounter Coding P-Comprehensive Metabolic Pa aldair (CMP) Coding Alkaline Phosphatase 05/01/2025 00:00: 00:00:00P-Comprehensive Metabolic Panel (CMP) Xmstgus5777-79-64D82:00:004.7g/dL3.5-5.3 - g/dLReEnriqueta Alvarez 05/03/2025 08:11:00 PM EDT > See phone encounter Coding P-Comprehensive Metabolic Pa aldair (CMP) Coding Albumin 05/01/2025 00:00: 00:00:00P-Comprehensive Metabolic Panel (CMP)A/G Ohnzg0183-25-46I67:00:001.71.1-2.5 -Enriqueta Luna 05/03/2025 08:11:00 PM EDT > See phone encounter Coding P-Comprehensive Metabolic Pa aldair (CMP) Coding A/G Ratio 05/01/2025 00:00: 00:00:00Glycohemoglobin A1c (in house) ckatvnibmyxshdf5940-21-59Y34:00:005.4%%5 - 6.5 %Livia Moise 05/01/2025 11:41:43 AM EDT > Enriqueta Aguilera 05/03/2025 08:11:00 PM EDT > See phone encounter Coding Glycohemoglobin A1c (in hous e) Coding glycohemoglobin 05/01/2025 00:00:00005/01/2025 00:00:00CBC Venipuncture (in house)matilda 1676-10-49M37:00:10168694 - 400Suma [place] 05/01/2025 11:40:15 AM EDT > Enriqueta Aguilera 05/03/2025 08:11:00 PM EDT > See phone encounter Coding CBC Venipuncture (in house) 05/01/2025 00:00: 00:00:00CBC Venipuncture (in house)[facility] 8218-25-01S95:00:0033.131 - 38Suma [place] 05/01/2025 11:40:15 AM EDT > Enriqueta Aguilera 05/03/2025 08:11:00 PM EDT > See phone encounter Coding CBC Venipuncture (in house) 05/01/2025 00:00: 00:00:00CBC Venipuncture (in house)[facility] 6381-62-76W90:00:0027.325 - 35Suma [place] 05/01/2025 11:40:15 AM EDT > Enriqueta Aguilera 05/03/2025 08:11:00 PM EDT > See phone encounter Coding CBC Venipuncture (in house) 05/01/2025 00:00: 00:00:00CBC Venipuncture (in house)[facility] 4509-52-46A39:00:0082.475 - 100Suma [place] 05/01/2025 11:40:15 AM EDT > Enriqueta Aguilera 05/03/2025 08:11:00 PM EDT > See phone encounter Coding CBC Venipuncture (in house) 05/01/2025 00:00: 00:00:00CBC Venipuncture (in house)[facility] 0323-52-99H10:00:0044.535 - 55Suma [place] 05/01/2025 11:40:15 AM EDT > Enriqueta Aguilera 05/03/2025 08:11:00 PM EDT > See phone encounter Coding CBC Venipuncture (in house) 05/01/2025 00:00: 00:00:00CBC Venipuncture (in house)[facility] 5360-13-09J23:00:0014.711.5 - 16.5Suma [place] 05/01/2025 11:40:15 AM EDT > Enriqueta Aguilera 05/03/2025 08:11:00 PM EDT > See phone encounter Coding CBC Venipuncture (in house) 05/01/2025 00:00: 00:00:00CBC Venipuncture (in house[facility] 2144-88-42L55:00:005.403.5 - 5.5Suma [place] 05/01/2025 11:40:15 AM EDT > Enriqueta Aguilera 05/03/2025 08:11:00 PM EDT > See phone encounter Coding CBC Venipuncture (in house) 05/01/2025 00:00: 00:00:00CBC Venipuncture (in house)[facility] 2773-01-95Z03:00:0069.035 - 80Suma [place] 05/01/2025 11:40:15 AM EDT > Enriqueta Aguilera 05/03/2025 08:11:00 PM EDT > See phone encounter Coding CBC Venipuncture (in house) 05/01/2025 00:00: 00:00:00CBC Venipuncture (in house)[facility] 0016-75-46G00:00:005.82 - 15ReAlisha [place] 05/01/2025 11:40:15 AM EDT > Enriqueta Aguilera 05/03/2025 08:11:00 PM EDT > See phone encounter Coding CBC Venipuncture (in house) 05/01/2025 00:00: 00:00:00CBC Venipuncture (in house)[facility] 8247-72-50W62:00:0025.215 - 50Suma [place] 05/01/2025 11:40:15 AM EDT > Enriqueta Aguilera 05/03/2025 08:11:00 PM EDT > See phone encounter Coding CBC Venipuncture (in house) 05/01/2025 00:00:00005/01/2025 00:00:00CBC Venipuncture (in house)[facility] 7096-77-30I36:00:009.73.5 - 10Livia Moise 05/01/2025 11:40:15 AM EDT > Enriqueta Aguilera 05/03/2025 08:11:00 PM EDT > See phone encounter Coding CBC Venipuncture (in house) 05/01/2025 00:00:00
--- OUTSIDE RECORDS SUMMARY | 2025-08-08 14:22 | XMS_ITS | Clinical Summary ---
Author Organization [facility] Address [address] [place] [address] Care Team Providers Care Flotation Operator Name Role Phone Brody Aguilera MD Primary [...] 3) 11/07/2017 09/12/2017 AAA SCREEN ONCE 2025 INFLUENZA VACCINE 06/20/2025 COVID-19 Vaccine ( season) 2025, 01/13/2021 Insurance MEDICARE ADVANTAGE Advance Directives * CPR (Attempt to Resuscitate) (Latest Code Status on File) Date Activated Date Inactivated Comments 03/20/2021 9:34 PM 03/21/2021 7:09 PM Question Answer Comments Code Status (Patient has no pulse and is not breathing): CPR (Attempt to Resuscitate) Medical Interventions (Patie nt has pulse or is breathing): Full Care Teams Flotation Operator Relationship Specialty Start Date End Date Brody Aguilera MD [address] [facility] [address] [facility] [address] [place] [address] PCP - General Family Medicine 01/13/21
--- OUTSIDE RECORDS SUMMARY | 2025-08-08 14:22 | XMS_ITS | Clinical Summary ---
Author Organization [facility] Address [address] [place] [address] Care Team Providers Care Assessment Counselor Name Role Phone Unavailable Primary Care Provider [...] patient's age to complete this topic Insurance [place] [address]
--- OUTSIDE RECORDS SUMMARY | 2025-08-08 14:22 | XMS_ITS | Encounter Summary ---
Author Organization Healthcare Address [address] [place] [address] Care Team Providers Care Materials Handler Name Role Phone Brody Aguilera MD Primary Care Provider [phone] Brody Aguilera MD Primary Care Provider +- [phone] Brody Aguilera MD Unavailable [phone] Encounter Details Date Type Department Care Team (Late st Contact Info) Description 04/22/2021 Orders Only External Location [address] [place] [address] Provider, External Social History Tobacco Use Types [...] on filedocumented in this encounter Care Teams Materials Handler Relationship Specialty Start Date End Date Brody Aguilera MD [address] [place] [address] PCP - General 04/02/21 09/19/22 Brody Aguilera MD [address] [place] [address] PCP - General 09/20/22 Brody Aguilera MD [address] [place] [address] 09/20/22 documented as of this encounter
--- OUTSIDE RECORDS SUMMARY | 2025-08-08 14:22 | XMS_ITS | Encounter Summary ---
Author Organization Healthcare Address [address] [place] [address] Care Team Providers Care Product Marketing Manager Name Role Phone Brody Aguilera MD Primary Care Provider [phone]- [phone] Brody Aguilera MD Primary Care Provider +- [phone] Brody Aguilera MD Unavailable [phone] Encounter Details Date Type Department Care Team (Late st Contact Info) Description 04/22/2021 Orders Only External Location [address] [place] [address] Provider, External Social History Tobacco Use Types [...] on filedocumented in this encounter Care Teams Product Marketing Manager Relationship Specialty Start Date End Date Brody Aguilera MD [address] [place] [address] PCP - General 04/02/21 09/19/22 Brody Aguilera MD [address] [place] [address] PCP - General 09/20/22 Brody Aguilera MD [address] [place] [address] 09/20/22 documented as of this encounter
--- NOTE | 2025-08-08 14:30 | CA_ITS ---
APPROVED REPORT EXAM: Comprehensive 2D, Doppler, and color-flow Echocardiogram Salvage Repairer: Tabitha Crain RT(R) Ht: 5 ft 8 in Wt: 215lbs BSA: 2.11 BP: 140/90 mmHg Indications: CAD, Edema 2D Dimensions LVEF (Thurman's) 59.10 % M: 52 - 72 LV Volume 92.20 mL M: 62 - 150 LV Volume Index 43.835165 mL/m2 M: 34 - 74 LA Volume 24.30 mL LA Volume Index 11.396030 mL/m2 (M/F) 16-34 EF AP4 63.60 % EF AP2 54.5 % EF BP 59.1 % GL Strain -23.8 % M-Mode Dimensions RVDd 2.72 cm (0.9-2.6) LA Diam 3.83 cm (1.9-4.0) LVDd 3.92 cm (3.5-5.7) LVDs 2.64 cm (3.5-5.7) IVSd 0.96 cm (0.6-1.1) PWd 0.72 cm (0.6-1.1) EF (Teich) 61.60% FS 32.70% EDV (Teich) 66.70 mL ESV (Teich) 25.60 mL LV Diastology E Decel Time 190 (160-240 msec) E/A Ratio 0.85 Aortic Valve DAVID Index 1.72 cm2/m2 AoV Peak Lio. 160.0 (50-130 cm/s) AO Peak GR. 10.20 mmHg AO Mean GR. 5.00 (<5 mmHg) AO VTI 32.5 (18-25 cm) DAVID (VTI) 3.71 (2.5-4.5 cm2) Mitral Valve MV E Max Lio. 74.0 (40-130 cm/s) MV A Velocity 87.0 (40-130 cm/s) E/A Ratio 0.85 MV PHT 56.0 ms Left Ventricle The left ventricle is normal size. Left ventricular systolic function is normal. The left ventricular ejection fraction is within the normal range. There is increased left ventricular wall thickness. There is normal LV segmental wall motion. Transmitral Doppler flow pattern suggests impaired LV relaxation. LVEF is 55%. Right Ventricle The right ventricle is mildly dilated. The right ventricular systolic function is normal. Atria The left atrium size is normal. The right atrium size is normal. There is no color Doppler evidence of interatrial shunt. Aortic Valve The aortic valve is mildly thickened. There is no hemodynamically significant aortic valvular stenosis. Trace aortic regurgitation is present. Mitral Valve The mitral valve is normal in structure. No evidence of mitral valve stenosis. Trace mitral regurgitation is present. Tricuspid Valve The tricuspid valve leaflets are thin and pliable. Trace tricuspid regurgitation. There is insufficient TR jet to estimate RVSP. Pulmonic Valve The pulmonary valve is grossly normal in structure. Trace pulmonic valve regurgitation is present. Great Vessels The aortic root is normal in size. IVC is normal in size and collapses >50% with inspiration. Pericardium There is no pericardial effusion. Other Information Study Quality: Fair Conclusion Normal biventricular systolic function. Mild RV dilation. No significant valvular stenosis or regurgitation. Electronically signed by : Diane Don MD 08/10/2025 19:36:35
== END 2025-08-08 23:59 | disposition home or self-care (01) ==
LOC: RT 14:20
PROVIDERS: PCP Family Medicine; Visit Provider Internal Medicine
DX: I11.9 Hypertensive heart disease without heart failure (principal); I25.10 Atherosclerotic heart disease of native coronary artery without angina pectoris; E78.5 Hyperlipidemia, unspecified
CPT/HCPCS: 93306

== ENCOUNTER 2025-09-03 13:49 | Outpatient (RCR) | payer MEDICARE, SELFPAY | END 2025-09-10 14:38 | disposition home or self-care (01) | LOC: PT.CARL 13:49 | PROVIDERS: PCP Family Medicine; Visit Provider Internal Medicine | DX: I11.9 Hypertensive heart disease without heart failure (principal); I25.10 Atherosclerotic heart disease of native coronary artery without angina pectoris | CPT/HCPCS: 97161 ==

== ENCOUNTER 2025-09-04 08:17 | Outpatient (CLI) | payer MEDICARE, SELFPAY ==
--- OUTSIDE RECORDS SUMMARY | 2024-10-01 11:45 | XMS_ITS ---
[facility] Address [address] [id number] Care Team Providers Care Mechatronics Technologist Name Role Phone Enriqueta Aguilera Primary Care Provider Allergies Allergen (clinical drug ingredient) Drug/Non Drug Allergy documented on EMR Reaction Allergy Type Onset Date Status meperidine Demerol Unknown Drug Allergy Active acetaminophen / oxycodone Percocet Unknown Drug Allergy Active morphine Morphine Unknown Drug Allergy Active Substance with penicillin structure and antibacterial mechanism of action (substance) Penicillins Unknown Drug Allergy Active Substance with 4-esglnbj-3-methylglut aryl-coenzyme A reductase inhibitor mechanism of action (substance) Statins muscle pain Drug Allergy Active Substance with sulfonamide structure and antibacterial mechanism of action (substance) Sulfa Antibiotics Unknown Drug Allergy Active tramadol traMADol rash Drug Allergy Active REASON FOR VISIT right ear pain Medications Medication SIG (Take, Route, Frequency, Duration) Notes Start Date End Date Status Dicyclomine HCl 10 MG 1 cap(s) orally 4 times a day Active Breztri Aerosphere 160-9-4.8 MCG/ACT 2 puffs Inhalation Twice a day 11/07/2023 Active Cyclobenzaprine HCl 10 MG 1 tab(s) orall y three times a day as needed Active amLODIPine Besylate 10 MG 1 tab(s) orall y Two times a day Active Furosemide 40 MG 1 tab(s) orally once a day; Duration: 90 days Active Aspirin Active Bisoprolol Fumarate 10 MG 1 tab(s) orall y Two times a day Active Creon 98096-989832 UNIT 2 cap(s) orally once daily Active Valsartan 320 MG 1 tab(s) orally once a day; Duration: 30 day(s) Active PROzac 10 MG 1 cap(s) orally once a day; Duration: 30 day(s) Active methylPREDNISolone 4 MG as directed Orally 023 Not-Taking oxyCODONE-Acetaminophen 5-325 MG 1 tab(s) orally every 4 hours prn 10/31/2023 Not-Taking Albuterol Sulfate HFA 108 (90 Base) MCG/ACT 1 puff as needed Inhalation every 4 hrs Active Albuterol Sulfate HFA 108 (90 Base) MCG/ACT 1-2 puff(s) inhaled every 6 hours, prn 02/15/2023 Not-Taking Benzonatate 200 MG 1 cap(s) orally 3 times a day; Duration: 5 day(s) 02/15/2023 Not-Taking Cefdinir 300 MG 1 cap(s) Orally Two times a day Not-Taking Medrol 4 MG as directed Orally 02/15/2024 Not-Taking Ciprofloxacin-dexAMETHasone 0.3-0.1 % 4 drops into affected ear Otic Twice a day 10/01/2024 Active Pseudoephedrine-guaiFENesin ER 60-600 MG 1 tab(s) orally 2 times a day 01/31/2023 Not-Taking Cefuroxime Axetil 500 MG 1 tab(s) orally every 12 hours; Duration: 7 days 02/15/2023 Not-Taking Diclofenac Sodium 75 MG 1 tab(s) orally 2 times a day; Duration: 90 days Active Montelukast Sodium 10 mg TAKE ONE TABLET BY MOUTH EVERY DAY; Duration: 90 Active Meloxicam 15 mg TAKE ONE TABLET BY MOUTH ONCE DAILY --TAKE WITH FOOD--; Duration: 30 days Active metFORMIN HCl ER 500 MG 1 tablet with evening meal Orally Once a day; Duration: 30 days Active Gabapentin 300 MG 1 cap(s) orally 3 times a day; Duration: 30 day(s) 04/01/2024 Active Bromfed DM 2-30-10 MG/5ML 5-10 ml Orally q6h prn 02/08/2024 Active Nebulizer/Tubing/Mouthpiece - as directed 02/15/2024 Active levoFLOXacin 500 MG 1 tablet Orally Once a day; Duration: 10 day(s) 02/29/2024 Active Albuterol Sulfate (2.5 MG/3ML) 0.083% 3 ml as needed Inhalation every 6 hrs 02/15/2024 Active Benzonatate 200 MG 1 capsule Orally q6h prn 02/15/2024 Active Problems Problem Type SNOMED Code ICD Code Onset Dates Problem Status W/U Status Risk Notes Problem Otitis externa (4418739) Otitis externa (H60.90) Active confirmed Vital Signs Blood pressure systolic 118 mm Hg 10/01/20 24 Blood pressure diastolic 74 mm Hg 024 Heart Rate 80 /min 10/01/2024 Height 68.50 in 10/01/2024 Weight 215 lbs 10/01/2024 BMI 32.21 kg/m2 10/01/2024 Encounters Encounter Location Date Provider Diagnosis [facility] [address] [place] [id number] 10/01/2024 Enriqueta Aguilera Otitis externa H60.9 0 Assessments Encounter Date Diagnosis (ICD Code) Assessment Notes Treatment Notes Treatment Clinical Notes Section Notes 10/01/2024 Otitis externa (ICD-10 - H60.90) Plan Of Treatment Medication Medication Name Sig Start Date Stop Date Notes Ciprofloxacin-dexAMETHasone 0.3-0.1 % 4 drops into affected ear Otic Twice a day 10/01/2024 Next Appt Details Follow Up: prn, Reason: Progress Notes * LOBITO CHAKRABORTYDOB: [birth year] (65 yo M)Acc No.[id number]:10/01/2024 Progress Notes Patient: LOBITO GONSALEZ Provider: Enriqueta Aguilera M.D. :1960 A ge:64 Y S ex:Male Date:10/01/2024 Address:[address] [place] [address] LUPE, Lainey MANZOÓSCAR [id number] Subjective: * Chief Complaints: * 1 . Right ear pain. * HPI: E NT/respiratory: Pt needs refills of Meloxicam and Montelukast. 64 year old male presents with c/o ear pain P t presents today with c/o pain in the right ear. Pt sts that he feels like his ear has been draining and he did have some swelling in his right ear on Monday. K nee/Andres: knee pain P t is scheduled to have a arthroscopic surgery on the right knee on 10/09. * ROS: D ERMATOLOGY: no R jazz. n o H kash. G ASTROENTEROLOGY: no N ausea. n o V omiting. U ROLOGY: no D ifficulty urinating. n o B lood in urine. * Medical History: H yperglycemic, Hypertension, Hyperlipidemia, Varicose Veins, GERD, LT Rotator Cuff Tear, Presbycusis - Hearing Aides, Declines all vaccines - 06/2020, Pancreatic Insufficiency. * Surgical History: A ppendectomy , Bilateral Rotator Cuff Repair , Heart Cath-[place] 01/24/2014, Cholecystectomy 06/2014, LT Shoulder Replacement- [facility] Dr [place] 09/22/2016, LT Shoulder Injection due to Past Surgery 01/2017, RT Shoulder Rotator Cuff, Bicep, Tendon, Clavicla Repair 12/2017, Heart Cath- Dr Matias 03/20/2020, C-scope/ [place]/ polyp x 1; sigmoid diverticulosis; 5 yr f/u 11/2022. * Hospitalization/Major Diagno stic Procedure: H [facility] 06/14/2011, Fever- [facility] 06/2011, RT Knee Swollen- [facility] ER 07/16/2011, LT Shoulder Abscess- [facility] 02/01/2017, Back Injury- [facility] ER 12/24/2018, Pancreatitis- [facility] 03/22-09/2021. * Family History: F ather: alive, HBP. M other: , alcoholism. P aternal Grand Father: .?Paternal Grand Mother: alive. M aternal Grand Father: . M aternal Grand Mother: . 1 sister(s) . 2 daughter(s) . . * Social History: C URRENT TOBACCO USE S moking Status: Patient does NOT smoke, Former Smoker: Yes, Quit smokin. C affeine: no. Marital Status: . Past smoking status: yes, PPD: , years: ,determination:. Alcohol: socially, Type: , Frequency: ,Years: , Determination:. * Medications: T aking Albuterol Sulfate HFA 108 (90 Base) MCG/ACT Aerosol Solution 1 puff as needed Inhalation every 4 hrs , Taking PROzac 10 MG Capsule 1 cap(s) orally once a day , Taking Creon [id number] UNIT Capsule Delayed Release Particles 2 cap(s) orally once daily , Taking Valsartan 320 MG Tablet 1 tab(s) orally once a day , Taking Aspirin , Taking Bisoprolol Fumarate 10 MG Tablet 1 tab(s) orally Two times a day , Taking amLODIPine Besylate 10 MG Tablet 1 tab(s) orally Two times a day , Taking Furosemide 40 MG Tablet 1 tab(s) orally once a day , Taking Breztri Aerosphere 160-9-4.8 MCG/ACT Aerosol 2 puffs Inhalation Twice a day , Taking Cyclobenzaprine HCl 10 MG Tablet 1 tab(s) orally three times a day as needed , Taking Dicyclomine HCl 10 MG Capsule 1 cap(s) orally 4 times a day , Taking Bromfed DM 2-30-10 MG/5ML Syrup 5-10 ml Orally q6h prn , Taking Albuterol Sulfate (2.5 MG/3ML) 0.083% Nebulization Solution 3 ml as needed Inhalation every 6 hrs , Taking Benzonatate 200 MG Capsule 1 capsule Orally q6h prn , Taking Nebulizer/Tubing/Mouthpiece - Kit as directed , Taking levoFLOXacin 500 MG Tablet 1 tablet Orally Once a day , Taking Gabapentin 300 MG Capsule 1 cap(s) orally 3 times a day , Taking Meloxicam 15 mg Tablet TAKE ONE TABLET BY MOUTH ONCE DAILY --TAKE WITH FOOD-- , Taking metFORMIN HCl ER 500 MG Tablet Extended Release 24 Hour 1 tablet with evening meal Orally Once a day , Taking Diclofenac Sodium 75 MG Tablet Delayed Release 1 tab(s) orally 2 times a day , Taking Montelukast Sodium 10 mg Tablet TAKE ONE TABLET BY MOUTH EVERY DAY , Not-Taking Cefdinir 300 MG Capsule 1 cap(s) Orally Two times a day , Not-Taking Medrol 4 MG Tablet Therapy Pack as directed Orally , Not-Taking Pseudoephedrine-guaiFENesin ER 60-600 MG Tablet Extended Release 12 Hour 1 tab(s) orally 2 times a day , Not-Taking Cefuroxime Axetil 500 MG Tablet 1 tab(s) orally every 12 hours , Not-Taking Albuterol Sulfate HFA 108 (90 Base) MCG/ACT Aerosol Solution 1-2 puff(s) inhaled every 6 hours, prn , Not- Taking Benzonatate 200 MG Capsule 1 cap(s) orally 3 times a day , Not-Taking oxyCODONE-Acetaminophen 5-325 MG Tablet 1 tab(s) orally every 4 hours prn , Not-Taking methylPREDNISolone 4 MG Tablet Therapy Pack as directed Orally , Medication List reviewed and reconciled with the patient * Allergies: P enicillins, Sulfa Antibiotics, Demerol, Morphine, Percocet, traMADol: rash - Allergy, Statins: muscle pain - Side Effects. Objective: * Vitals: W t:215, Temp:98.2, BP:118/74, HR:80, Nurse:JODI, Ht: 68.50, BMI:32.21. * Examination: E NT/Respiratory: General Appearance: N AD. E ars: L eft external canal and TM are normal. The right external canal is red and swollen. There is tenderness to palpation of the tragus. Assessment: * Assessment: 1. O titis externa - H60.90 (Primary) Plan: * Treatment: * Follow Up: p rn * Images: Billing Information: * Visit Code: 74110 Office Visit, Est Pt., Level 3. * Procedure Codes: * Electronic signature of Enriqueta Aguilera MD on 09/04/2025 at 08:29 AM EDT Sign off status: Pending * Provider: Enriqueta Aguilera M.D. Date: 12/01/2023 Generated for Vicenta cox/Madhu/Hoda on: 08:29 AM EDT History and Physical Notes * HPI (History of Present Illness) Category Sub-Category Detail Notes Category Not es ENT/respiratory ear pain Pt presents toda y with c/o pain in the right ear. Pt sts that he feels like his ear has been draining and he did have some swelling in his right ear on Monday Knee/Andres knee pain Pt is scheduled to have a arthroscopic surgery on the right knee on 10/09 Examination Category Sub-Category Detail Notes Category Not es ENT/Respiratory Ears: Left external ca nal and TM are normal. The right external canal is red and swollen. There is tenderness to palpation of the tragus General Appearance: NAD
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
--- OUTSIDE RECORDS SUMMARY | 2025-05-01 06:30 | XMS_ITS ---
[facility] Organization [facility] Address [address] [place] [id number] Care Team Providers Care Accountant Supervisor Name Role Phone Enriqueta Aguilera Primary Care Provider Allergies Allergen (clinical drug ingredient) Drug/Non Drug Allergy documented on EMR Reaction Allergy Type Onset Date Status meperidine Demerol Unknown Drug Allergy Active acetaminophen / oxycodone Percocet Unknown Drug Allergy Active morphine Morphine Unknown Drug Allergy Active Substance with penicillin structure and antibacterial mechanism of action (substance) Penicillins Unknown Drug Allergy Active Substance with 3-pknbrtr-6-methylglut aryl-coenzyme A reductase inhibitor mechanism of action (substance) Statins muscle pain Drug Allergy Active Substance with sulfonamide structure and antibacterial mechanism of action (substance) Sulfa Antibiotics Unknown Drug Allergy Active tramadol traMADol rash Drug Allergy Active Results Component Value Reference Range Notes CBC Venipuncture (in house) Reviewed date:05/03/2025 08:12:45 PM Interpretation: Performing Lab: Notes/Report: wbc 9.7 3.5 - 10 lymph 25.2 15 - 50 mid 5.8 2 - 15 gran 69.0 35 - 80 rbc 5.40 3.5 - 5.5 hgb 14.7 11.5 - 16.5 hct 44.5 35 - 55 mcv 82.4 75 - 100 mch 27.3 25 - 35 mchc 33.1 31 - 38 platlet 314 100 - 400 Glycohemoglobin A1c (in hous e) Reviewed date:05/03/2025 08:12:45 PM Interpretation:5.4% Performing Lab: Notes/Report: 5.4% glycohemoglobin 5.4% 5 - 6.5 % P-Comprehensive Metabolic Pa aldair (CMP) Reviewed date:05/03/2025 08:12:45 PM Interpretation:K+ 5.5 Performing Lab: Notes/Report: Test performed by [facility] [address] [place] [address] , [address], [place] [address] Jeremy Banuelos MD, St[employer] Presser CLIA: [id number] Sodium 139 135-145 mmol/L Potassium 5.5 3.5-5.3 mmol/L Chloride 101 97-108 mmol/L CO2 25 22-32 mmol/L Glucose 100 65-99 mg/dL BUN 35 8-23 mg/dL Creatinine 1.08 0.70-1.30 mg/dL Calcium 9.7 8.6-10.4 mg/dL eGFR by Creatinine 76 >59 mL/min/1.73m2 Protein 7.4 6.0-8.3 g/dL Albumin 4.7 3.5-5.3 g/dL Alkaline Phosphatase 129 40-129 IU/L ALT (SGPT) 32 <5-55 IU/L AST (SGOT) 26 <5-46 IU/L Bilirubin, Total 0.4 <0.2-1.2 mg/dL A/G Ratio 1.7 1.1-2.5 P-Lipid Panel Reviewed date:05/03/2025 08:12:45 PM Interpretation:LDL 58 Performing Lab: Notes/Report: Test performed by [facility] [address] [place] [address] , [address], [place] [address] Jeremy Banuelos MD, [employer]er CLIA: [id number] Cholesterol 134 <200 mg/dL Triglycerides 200 <150 mg/dL HDL Cholesterol 36 >39 mg/dL Cholesterol / HDL Ratio 3.72 0.00-4.99 Ratio Non-HDL Cholesterol 98 <130 mg/dL LDL Cholesterol (Calculation) 58 <130 mg/dL LDL Cholesterol Levels* Less than 100 mg/dL Optimal 100 to 129 mg/dL Near Optimal/ Above Optimal 130 to 159 mg/dL Borderline High 160 to 189 mg/dL High 190 mg/dL and above Very High * Categories as recommended by the 2004 ATPIII guidelines LDL/HDL Ratio 1.6 <3.3 Ratio LDL Cholesterol Patient History Test Date: 05/01/2025 LDL Results: 58 Units: mg/dL % Change: - P-PSA Reviewed date:05/03/2025 08:12:45 PM Interpretation:0.87 Performing Lab: Notes/Report: Test performed by [facility] [address] [place], [place] [address] , [address], [place] [address] Jeremy Banuelos MD, [employer]er CLIA: [id number] PSA 0.87 <4.00 ng/mL Please note this is an ultrasensitive PSA assay with a lower limit of detection of 0.014 ng/mL. This test is performed by the Shellie ECLIA methodology. Values obtained with different assay methods or kits cannot be directly compared. 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 Vegas's office Referral Priority Routine REASON FOR VISIT med checkup with Annual Wellness Visit Medications Medication SIG (Take, Route, Frequency, Duration) Notes Start Date End Date Status Albuterol Sulfate HFA 108 (90 Base) MCG/ACT 1-2 puff(s) inhaled every 6 hours, prn 02/15/2023 Not-Taking traMADol HCl 50 MG 1 tab(s) Orally two times a day as needed prn 05/01/2025 Active Cyclobenzaprine HCl 10 MG 1 tab Orally t hree times a day as needed Active amLODIPine Besylate 10 MG 1 tab(s) orall y Once a day Active oxyCODONE-Acetaminophen 5-325 MG 1 tab(s) orally every 4 hours prn 10/31/2023 Not-Taking Albuterol Sulfate (2.5 MG/3ML) 0.083% 3 ml as needed Inhalation every 6 hrs 02/15/2024 Not-Takin g Breztri Aerosphere 160-9-4.8 MCG/ACT 2 puffs Inhalation Twice a day 11/07/2023 Not-Taking metFORMIN HCl ER 500 mg TAKE ONE TABLET BY MOUTH EVERY EVENING - TAKE WITH FOOD-; Duration: 30 Not-Taking Ciprofloxacin-dexAMETHason e 0.3-0.1 % 4 drops into affected ear Otic Twice a day 10/01/2024 Not-Taking Furosemide 40 MG 1 tab(s) orally once a day; Duration: 90 days Active Bisoprolol Fumarate 10 MG 1 tab(s) orall y Two times a day Active Gabapentin 300 MG 1 cap(s) orally 3 times a day; Duration: 30 day(s) 04/17/2025 Active Montelukast Sodium 10 mg TAKE ONE TABLET BY MOUTH EVERY DAY; Duration: 90 days Active Repatha SureClick 140 MG/ML as directed Subcutaneous Active Valsartan 320 MG 1 tab(s) orally once a day; Duration: 30 day(s) Active Nabumetone 750 MG 1 tab Orally twice a day 05/01/2025 Active Creon [id number] UNIT 2 cap(s) orally once daily Active Probiotic - as directed Orally Active Super Antioxidant - as directed Orally Active FLUoxetine HCl 10 MG 1 capsule Orally On ce a day Active Vital Signs Blood pressure systolic 126 mm Hg 05/01/20 25 Blood pressure diastolic 80 mm Hg 025 Heart Rate 80 /min 05/01/2025 Height 68.50 in 05/01/2025 Weight 218.0 lbs 05/01/2025 BMI 32.66 kg/m2 05/01/2025 Encounters Encounter Location Date Provider Diagnosis [facility] [address] [facility] [address] [place], [place] [id number] 05/01/2025 Enriqueta Aguilera Adult general medica l examination Z00.00 ; HTN (hypertension) I10 ; Dyslipidemia E78.5 ; Statin intolerance Z78.9 ; Hyperglycemia R73.9 ; Screening for prostate cancer Z12.5 ; GERD (gastroesophageal reflux disease) K21.9 ; Generalized anxiety disorder F41.1 ; Primary generalized (osteo)arthritis M15.0 ; 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) 05/01/2025 Anxiety disorder (ICD-10 - F41.9) 05/01/2025 BMI 32.0-32.9,adult (ICD-10 - Z68.32) Plan Of Treatment Medication Medication Name Sig Start Date Stop Date Notes traMADol HCl 50 MG 1 tab(s) Orally two times a day as needed 05/01/2025 prn Cyclobenzaprine HCl 10 MG 1 tab Orally t hree times a day as needed amLODIPine Besylate 10 MG 1 tab(s) orally Once a day Diclofenac Sodium 75 mg TAKE ONE TABLET BY MOUTH TWICE DAILY - TAKE WITH FOOD- Meloxicam 15 MG 1 tablet Orally Once a day Nabumetone 750 MG 1 tab Orally twice a day 05/01/2025 FLUoxetine HCl 10 MG 1 capsule Orally Once a day Treatment Notes Assessment Notes Adult general medical examination Patien t instructed to return to office Annually for Annual Wellness Visits to include annual screenings of Pain assessment, Functional Ability assessment, Cognitive Ability assessment, Fall Risk assessment, Depression screening and Bladder control screening. Referrals Referral Date Details 05/01/2025 05/01/2025, possible skin cancer, Estelle Vegas, [address], [place], [place], [id number], Next Appt Details Follow Up: 6 Months, Reason: Progress Notes * PALMER LOBITO ARRINGTONDOB: [birth year] (65 yo M)Acc No.[id number]:05/01/2025 Annual Wellness Visit Patient: LOBITO GONSALEZ Provider: Enriqueta Aguilera M.D. :1960 A ge:65 Y S ex:Male Date:05/01/2025 Address:[address] [place] [address], [id number] Subjective: * Chief Complaints: * 1 . med checkup with Annual Wellness Visit. * HPI: H PI: Patient is here today for P atient is here today for a Medicare Annual Wellness Visit. Pt sts he needs refills today as well.. D ermatology: He complains of a skin lesion on his right upper back has been present for several months and continues to itch and will not heal. It sometimes bleeds. R heumatology: He has multiple arthritic complaints in his shoulders hips and knees. He has been receiving some injections in his knees per orthopedics. He has been on the same NSAID for couple of years. On reviewing his medication, he states he is taking both meloxicam and diclofenac. * ROS: O PTHALMOLOGY: Negative for d enies vision issues. * Medical History: H yperglycemic, Hypertension, Hyperlipidemia, Varicose Veins, GERD, LT Rotator Cuff Tear, Presbycusis - Hearing Aides, Declines all vaccines - 06/2020, Pancreatic Insufficiency. * Surgical History: A ppendectomy , Bilateral Rotator Cuff Repair , Heart Cath-[facility] 01/24/2014, Cholecystectomy 06/2014, LT Shoulder Replacement- [facility] Dr Armenta 09/22/2016, LT Shoulder Injection due to Past Surgery 01/2017, RT Shoulder Rotator Cuff, Bicep, Tendon, Clavicla Repair 12/2017, Heart Cath- Dr Matias 03/20/2020, C-scope/ Causey/ polyp x 1; sigmoid diverticulosis; 5 yr f/u 11/2022. * Hospitalization/Major Diagno stic Procedure: H [facility] ER 06/14/2011, Fever- [facility] ER 06/2011, RT Knee Swollen- [facility] ER 07/16/2011, LT Shoulder Abscess- [facility] 02/01/2017, Back Injury- [facility] ER 12/24/2018, Pancreatitis- [facility] 03/22-09/2021. * Family History: F ather: [...] ,Years: , Determination:. * Medications: T aking Meloxicam 15 MG Tablet 1 tablet Orally Once a day , Taking Super Antioxidant - Capsule as directed Orally , Taking Probiotic - Tablet Chewable as directed Orally , Taking Creon [id number] UNIT Capsule Delayed Release Particles 2 cap(s) orally once daily , Taking Valsartan 320 MG Tablet 1 tab(s) orally once a day , Taking Bisoprolol Fumarate 10 MG Tablet 1 tab(s) orally Two times a day , Taking amLODIPine Besylate 10 MG Tablet 1 tab(s) orally Once a day , Taking Furosemide 40 MG Tablet 1 tab(s) orally once a day , Taking FLUoxetine HCl 10 MG Capsule 1 capsule Orally Once a day , Taking Montelukast Sodium 10 mg Tablet TAKE ONE TABLET BY MOUTH EVERY DAY , Taking Diclofenac Sodium 75 mg Tablet Delayed Release TAKE ONE TABLET BY MOUTH TWICE DAILY - TAKE WITH FOOD- , Taking Gabapentin 300 MG Capsule 1 cap(s) orally 3 times a day , Taking Cyclobenzaprine HCl 10 MG Tablet 1 tab Orally three times a day as needed , Taking Repatha SureClick 140 MG/ML Solution Auto-injector as directed Subcutaneous , Not-Taking Breztri Aerosphere 160-9-4.8 MCG/ACT Aerosol 2 puffs Inhalation Twice a day , Not-Taking Albuterol Sulfate (2.5 MG/3ML) 0.083% Nebulization Solution 3 ml as needed Inhalation every 6 hrs , Not-Taking Ciprofloxacin-dexAMETHasone 0.3-0.1 % Suspension 4 drops into affected ear Otic Twice a day , Not-Taking traMADol HCl 50 MG Tablet 1 tab(s) Orally two times a day as needed , Notes to Pharmacist: prn, Not-Taking metFORMIN HCl ER 500 mg Tablet Extended Release 24 Hour TAKE ONE TABLET BY MOUTH EVERY EVENING - TAKE WITH FOOD- , Not-Taking Albuterol Sulfate HFA 108 (90 Base) MCG/ACT Aerosol Solution 1-2 puff(s) inhaled every 6 hours, prn , Not- Taking oxyCODONE-Acetaminophen 5-325 MG Tablet 1 tab(s) orally every 4 hours prn , Medication List reviewed and reconciled with the patient * Allergies: P enicillins, Sulfa Antibiotics, Demerol, Morphine, Percocet, traMADol: rash - Allergy, Statins: muscle pain - Side Effects. Objective: * Vitals: W t: 218.0, Temp: 98.6, BP: 126/80, HR: 80, Nurse: mmh, Ht: 68.50, BMI:32.66. * Examination: G eneral Examination: General Appearance: N AD. H eart: R SR. L ungs:?clear to auscultation. S kin: O n his right upper back, there is a 1 cm scaly lesion with raised borders. It is well-circumscribed. No drainage.. E xtremities: t race leg edema. * Physical Examination: G ENERAL: Pain Assessment: P ain level: 6, on a scale of 0-10 (with 10 being extreme pain). F unctional Status Assessment: P atient response to question of how often physical health interferes with daily activities: Almost never. Able to perform ADLs-including meal preparation, grocery shopping, housework, laundry, taking medications or handling finances. Cognitive Status: alert and oriented. Ambulation Status: Fully ambulatory. F all Risk Assessment: I ndependant in ambulation, adequate lighting in home. Patient has fallen or had trouble walking within the past 12 months. D epression Screening: D enies depressed mood or anxiety. Describes emotional health as: - . B ladder Control Screening: D enies problems. Assessment: * Assessment: 1. A dult general medical examination - Z00.00 (Primary) 2 . H TN (hypertension) - I10 3 . D yslipidemia - E78.5 4 . S tatin intolerance - Z78.9 5 . H yperglycemia - R73.9 6 . S creening for prostate cancer - Z12.5 7 . G ERD (gastroesophageal reflux disease) - K21.9 ? 8 . G eneralized anxiety disorder - F41.1 9 . P rimary generalized (osteo)arthritis - M15.0 1 0. 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 A nxiety disorder - F41.9 1 2. B NE 32.0-32.9,adult - Z68.32 Plan: * Treatment: 2. H TN (hypertension) Refill amLODIPine Besylate Tablet, 10 MG, 1 tab(s), orally, Once a day, 90, Refills 1. L AB: P-Comprehensive Metabolic Panel (CMP) (Collection Date & Time - 05/01/2025 10:03 AM) K + 5.5 Value Reference Range A /G Ratio 1.7 1.1-2.5 - * A lbumin 4.7 3.5-5.3 - g/dL * A lkaline Phosphatase 129 40-129 - IU/L * A LT (SGPT) 32 <5-55 - IU/L * A ST (SGOT) 26 <5-46 - IU/L * B ilirubin, Total 0.4 <0.2-1.2 - mg/dL * B UN 35 H 8-23 - mg/dL * C alcium 9.7 8.6-10.4 - mg/dL * C hloride 101 97-108 - mmol/L * C O2 25 22-32 - mmol/L * C reatinine 1.08 0.70-1.30 - mg/dL * G lucose 100 H 65-99 - mg/dL * P otassium 5.5 H 3.5-5.3 - mmol/L * S odium 139 135-145 - mmol/L * P rotein 7.4 6.0-8.3 - g/dL * e GFR by Creatinine 76 >59 - mL/min/1.73m2 * Enriqueta Aguilera 05/03/2025 08:11:00 PM EDT > See phone encounter ?LAB: P-Microalbumin/Creatinine, Random Urine Sample (Collection Date & Time - 05/01/2025 10:03 AM)* Value Reference Range A lbumin/Creatinine Ratio, Urine 9 0-30 - ug /mg * C reatinine, Urine 52.9 - mg/dL * M icroalbumin, Urine, Random 0.5 - mg/dL * Enriqueta Aguilera 05/03/2025 08:11:00 PM EDT > See phone encounter ?LAB: CBC Venipuncture (in house) (Collection Date & Time - 05/01/2025)* Value Reference Range w bc 9.7 3.5 - 10 * l ymph 25.2 15 - 50 * m id 5.8 2 - 15 * g ran 69.0 35 - 80 * r bc 5.40 3.5 - 5.5 * h gb 14.7 11.5 - 16.5 * h ct 44.5 35 - 55 * m cv 82.4 75 - 100 * m ch 27.3 25 - 35 * m chc 33.1 31 - 38 * p latlet 314 100 - 400 * Livia Mims 05/01/2025 11:4 0:15 AM EDT > Enriqueta Aguilera 05/03/2025 08:11:00 PM EDT > See phone encounter 3.?Dyslipidemia?LAB: P-Lipid Panel (Collection Date & Time - 05/01/2025 10:03 AM)?LDL 58* Value Reference Range C holesterol / HDL Ratio 3.72 0.00-4.99 - Ratio * C holesterol 134 <200 - mg/dL * H DL Cholesterol 36 L >39 - mg/dL * L DL Cholesterol (Calculation) 58 <130 - mg/d L * L DL/HDL Ratio 1.6 <3.3 - Ratio * N on-HDL Cholesterol 98 <130 - mg/dL * T riglycerides 200 H <150 - mg/dL * Enriqueta Aguilera 05/03/2025 08:11:00 PM EDT > See phone encounter 4.?Hyperglycemia?LAB: Glycohemoglobin A1c (in house) (Collection Date & Time - 05/01/2025)? 5.4%* Value Reference Range g lycohemoglobin 5.4% 5 - 6.5 % * Livia Mims 05/01/2025 11:4 1:43 AM EDT > Enriqueta Aguilera 05/03/2025 08:11:00 PM EDT > See phone encounter 5.?Screening for prostate cancer?LAB: P-PSA (Collection Date & Time - 05/01/2025 10:03 AM)?0.87* Value Reference Range P SA 0.87 <4.00 - ng/mL * Enriqueta Aguilera 05/03/2025 08:11:00 PM EDT > See phone encounter 6.?Primary generalized (osteo)arthritis? 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 Referral To:Estelle Vegas??Dermatology ?Reason:possibleskin cancer 8.?Anxiety disorder? Refill FLUoxetine HCl Capsule, 10 MG, 1 capsule, Orally, Once a day, 90, Refills 1.??9.?Others? Refill Cyclobenzaprine HCl Tablet, 10 MG, 1 tab, Orally, three times a day as needed, 30, Refills 1.?? * Procedure Codes: G 0439 ANNUAL WELLNESS VST; PPS SUBSQT VST, G2211 Complex e/m visit add on, 1090F PRES/ABSN URINE INCON ASSESS, 3288F FALL RISK ASSESSMENT DOCD, 1170F FXNL STATUS ASSESSED, 1159F MED LIST DOCD IN RCRD, 1003F LEVEL OF ACTIVITY ASSESS, 1036F TOBACCO NON-USER, 3017F COLORECTAL CA SCREEN DOC REV, 62802 CBC WITH AUTO DIFF, 75434 GLYCATED HEMOGLOBIN TEST, Modifiers: QW , 3044F HG A1C LEVEL LT 7.0%, 1125F AMNT PAIN NOTED PAIN PRSNT, G8950 PREHTN/HTN BP DOC INDCD F/U DOC, G8752 MOST RECENT SYSTOLIC BP < 140MM HG, G8754 MOST RECENT DIASTOLIC BP < 90MM HG * Preventive Medicine: Counseling: E motional health: D iscussed ways to improve socialization. E xercise: P atient advised to start, increase or maintain level of exercise/physical activity. Injury prevention: F all prevention discussed. Discussed need for cane/walker. Potential trip hazards discussed. Immunizations: P neumococcal r ecommended. I nfluenza r ecommended seasonally. Screening / Special Tests: C olonoscopy R ecent history: 11/23/2022 Dr. Causey, polyps, diverticulosis, hemorrhoids. P SA o rdered. L emily cancer screening Chest CT ordered by Dr. Pineda recommends f/u in 6-12 months. A AA screening r ecommended due to smoking history and age. * Follow Up: 6 Months * Images: Billing Information: * Visit Code: 81424 Office Visit, Est Pt., Level 4. Modifiers: 25 * Procedure Codes: G0439 ANNUAL WELLNESS VST; PPS SUBSQT VST. G2211 Complex e/m visit add on. 1090F PRES/ABSN URINE INCON ASSESS. 3288F FALL RISK ASSESSMENT DOCD. 1170F FXNL STATUS ASSESSED. 1159F MED LIST DOCD IN RCRD. 1003F LEVEL OF ACTIVITY ASSESS. 1036F TOBACCO NON-USER. 3017F COLORECTAL CA SCREEN DOC REV. 52872 CBC WITH AUTO DIFF. 98795 GLYCATED HEMOGLOBIN TEST. Modifiers: QW 3044F HG A1C LEVEL LT 7.0%. 1125F AMNT PAIN NOTED PAIN PRSNT. G8950 PREHTN/HTN BP DOC INDCD F/U DOC. G8752 MOST RECENT SYSTOLIC BP < 140MM HG. G8754 MOST RECENT DIASTOLIC BP < 90MM HG. * Electronic signature of R Florencio Aguilera MD on 09/04/2025 at 08:30 AM EDT Sign off status: Pending * Provider: Enriqueta Aguilera M.D. Date: 0 05/01/2025 Generated for Vicenta cox/Madhu/Hoda on: 1 08:30 AM EDT History and Physical Notes * HPI (History of Present Illness) Category Sub-Category Detail Notes Category Not es HPI Patient is here today for Patien t is here today for a Medicare Annual Wellness Visit. Pt sts he needs refills today as well. Physical Examination Category Sub-Category Detail Notes Section Note s GENERAL Pain Assessment: Pain level: 6, on a scale of 0-10 (with 10 being extreme pain) Functional Status Assessment: Patient re sponse to question of how often physical health interferes with daily activities: Almost never. Able to perform ADLs-including meal preparation, grocery shopping, housework, laundry, taking medications or handling finances.Cognitive Status: alert and oriented.Ambulation Status: Fully ambulatory Fall Risk Assessment: Independant in amb ulation, adequate lighting in home. Patient has fallen or had trouble walking within the past 12 months Depression Screening: Denies depressed m ood or anxiety. Describes emotional health as: - Bladder Control Screening: Denies proble ms Examination Category Sub-Category Detail Notes Category Not es General Examination Heart: RSR Lungs: clear to auscultatio n Extremities: trace leg edema General Appearance: NAD Skin: On his right upper b ack, there is a 1 cm scaly lesion with raised borders. It is well-circumscribed. No drainage. Consultation Request Notes Referral Date Referring Provider Referred Provider Not es 05/01/2025 Enriqueta Aguilera Audra possibl e skin cancer
--- NOTE | 2025-09-04 08:20 | XR_ITS ---
FINAL REPORT CLINICAL HISTORY: right knee pain, pre-injection FINDINGS: AP, lateral and oblique views of the right knee were obtained. There is no prior exam for comparison. There is no acute osseous abnormality of the right knee. There is advanced degenerative joint disease. The soft tissues are normal. There is a small joint effusion. IMPRESSION: No acute osseous abnormality of the right knee. Degenerative disease with a small joint effusion. Reviewed, Interpreted and Dictated by Hodan Hartman MD Transcribed by Destiny Tineo Authenticated and [facility]
--- OUTSIDE RECORDS SUMMARY | 2025-09-04 08:28 | XMS_ITS | Encounter Summary ---
Author Organization Healthcare Address [address] [place] [address] Care Team Providers Care Hat Conditioner Name Role Phone Brody Aguilera MD Primary Care Provider [phone]- [phone] Brody Aguilera MD Primary Care Provider +- [phone] Brody Aguilera MD Unavailable [phone] Encounter Details Date Type Department Care Team (Late st Contact Info) Description 04/22/2021 Orders Only External Location [address] [place] [address] Provider, External Social History Tobacco Use Types [...] on filedocumented in this encounter Care Teams Hat Conditioner Relationship Specialty Start Date End Date Brody Aguilera MD [address] [place] [address] PCP - General 04/02/21 09/19/22 Brody Aguilera MD [address] [place] [address] PCP - General 09/20/22 Brody Aguilera MD [address] [place] [address] 09/20/22 documented as of this encounter
--- OUTSIDE RECORDS SUMMARY | 2025-09-04 08:28 | XMS_ITS | Encounter Summary ---
Author Organization [facility] Address [address] [place] [address] Care Team Providers Care Computer Customer Support Specialist Name Role Phone Brody Aguilera MD Primary Care Provider [phone] Brody gAuilera MD Primary Care Provider +- [phone] Brody Aguilera MD Unavailable [phone] Encounter Details Date Type Department Care Team (Late st Contact Info) Description 04/22/2021 Orders Only External Location [address] [place] [address] Provider, External Social History Tobacco Use Types [...] on filedocumented in this encounter Care Teams Computer Customer Support Specialist Relationship Specialty Start Date End Date Brody Aguilera MD [address] [place] [address] PCP - General 04/02/21 09/19/22 Brody Aguilera MD [address] [place] [address] PCP - General 09/20/22 Brody Aguilera MD [address] [place] [address] 09/20/22 documented as of this encounter
--- OUTSIDE RECORDS SUMMARY | 2025-09-04 08:28 | XMS_ITS | Encounter Summary ---
Author Organization Healthcare Address [address] [place] [address] Care Team Providers Care Button Tufting Machine Operator Name Role Phone Brody Aguilera MD Primary Care Provider [phone]- [phone] Brody Aguilera MD Primary Care Provider +- [phone] Brody Aguilera MD Unavailable [phone] Encounter Details Date Type Department Care Team (Late st Contact Info) Description 05/05/2021 Orders Only External Location [address] [place] [address] Azul Braswell, FINANCIAL CONTROLLER [address] [place] [address] Social History Tobacco Use Types Packs/Day Years [...] 05/05/2021 9:39 AM EDT us Azul Braswell FINANCIAL CONTROLLER IMG MRI PROCEDURES Final R esult documented in this encounter Visit Diagnoses Not on filedocumented in this encounter Care Teams Button Tufting Machine Operator Relationship Specialty Start Date End Date Brody Aguilera MD [address] [place] [address] PCP - General 04/02/21 09/19/22 Brody Aguilera MD [address] [place] [address] PCP - General 09/20/22 Brody Aguilera MD [address] [place] [address] 09/20/22 documented as of this encounter
--- OUTSIDE RECORDS SUMMARY | 2025-09-04 08:28 | XMS_ITS | Clinical Summary ---
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 [place] [address] Svitlana Nix RN Edema of both lower extremities (Primary Dx) from Last 3 Months Family History Medical History Relation Name Comments [...] Screening 1960 [facility]-Medicare Annual Wellness (AWV) 1960 [facility]-/Child/Adol SDOH Screenings 1960 [facility]- SDOH Screenings 1978 [...] PCV) 11/07/2024 11/07/2023 [facility]-Depression Screening 12/21/2024 12/21/2023 [facility]-Abdominal Aortic Aneurysm (AAA) Screening 2025 [id number] Vaccine ( season) 2025 11/25/2023, 10/04/2022, 03/31/2022, [...] patient's age to complete this topic Insurance [employer] Care Teams Stencil Maker Relationship Specialty Start Date End Date Brody Aguilera MD [address] [place] [address] PCP - General 09/20/22 Brody Aguilera MD [address] [place] [address] 09/20/22
--- OUTSIDE RECORDS SUMMARY | 2025-09-04 08:28 | XMS_ITS | Clinical Summary ---
Author Organization [facility] Address [address] [facility] [place] [address] Care Team Providers Care Landscaping Manager Name Role Phone Unavailable Primary Care Provider [...] patient's age to complete this topic Insurance [address] [address]
--- OUTSIDE RECORDS SUMMARY | 2025-09-04 08:29 | XMS_ITS | Patient Health Record ---
[facility] [address] [facility] [address] [place] [id number] Care Team Providers Care Ammonia Print Operator Name Role Phone Enriqueta Aguilera Primary Care Provider Scott Santos Unavailable [phone] Allergies Allergen (clinical drug ingredient) Drug/Non Drug Allergy documented on EMR Reaction Allergy Type Onset Date Status meperidine Demerol Unknown Drug Allergy Active acetaminophen / oxycodone Percocet Unknown Drug Allergy Active morphine Morphine Unknown Drug Allergy Active Substance with penicillin structure and antibacterial mechanism of action (substance) Penicillins Unknown Drug Allergy Active Substance with 4-tvfsdur-0-methylglut aryl-coenzyme A reductase inhibitor mechanism of action (substance) Statins muscle pain Drug Allergy Active Substance with sulfonamide structure and antibacterial mechanism of action (substance) Sulfa Antibiotics Unknown Drug Allergy Active tramadol traMADol rash Drug Allergy Active Results Component Value Reference Range Notes H-Creatinine Urine, random Reviewed date:10/26/2024 09:33:37 AM Interpretation: Normal Performing Lab: Notes/Report: UCREAT 178 Not Estab. mg/dL Random urine reference range not established. 24 hour urine samples recommended. H-MICROALB Reviewed date:10/26/2024 09:33:56 AM Interpretation: Normal Performing Lab: Notes/Report: MICROALB 6.900 0-16.7 mg/L CBC Venipuncture (in house) Reviewed date:05/03/2025 08:12:45 [...] 08:12:45 PM Interpretation:K+ 5.5 Performing Lab: Notes/Report: CLIA: [id number] Jeremy Banuelos MD, Clinical Science Consultant [facility] , [address], [place] [address] Test performed by [facility] Sodium 139 135-145 mmol/L Potassium 5.5 3.5-5.3 [...] 58 Performing Lab: Notes/Report: Test performed by [facility] , [address], [place] [address] Jeremy Banuelos MD, Clinical Science Consultant CLIA: [id number] Cholesterol 134 <200 mg/dL Triglycerides 200 <150 [...] Interpretation:0.87 Performing Lab: Notes/Report: Test performed by [facility] [address] [place] [address] [address], [place] [address] Jeremy Banuelos MD, Clinical Science Consultant CLIA: [id number] PSA 0.87 <4.00 ng/mL Please note this is an ultrasensitive PSA assay with a lower limit of detection of 0.014 ng/mL. This test is performed by the Shellie ECLIA methodology. Values obtained with different assay methods or kits cannot be directly compared. 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 OP Referred Provider Estelle [place] Referred Address [address] [place] [address] E [place],[id number] Referred Provider Specialty Dermatology General Notes Mahi Zaman 2024 09:51:57 AM > faxed to Dr. [place]'s office Referral Priority Routine Medications Medication SIG (Take, Route, Frequency, Duration) Notes Start Date End Date Status traMADol HCl 50 MG 1 tab(s) Orally two times a day as needed prn 08/11/2025 Active Diclofenac Sodium 75 MG 1 tablet as need ed Orally Twice a day; Duration: 30 days 06/26/2025 Active Super Antioxidant - as directed Orally Active FLUoxetine HCl 10 MG 1 capsule Orally On ce a day Active Gabapentin 300 MG 1 cap(s) orally 3 times a day; Duration: 30 day(s) 04/17/2025 Active amLODIPine Besylate 10 MG 1 tab(s) orall y Once a day Active Montelukast Sodium 10 mg TAKE ONE TABLET BY MOUTH EVERY DAY; Duration: 90 days Active oxyCODONE-Acetaminophen 5-325 MG 1 tab(s) orally every 4 hours prn 10/31/2023 Not-Taking Creon [id number] UNIT 2 cap(s) orally once daily Active Probiotic - as directed Orally Active Repatha SureClick 140 MG/ML as directed Subcutaneous Active Valsartan 320 MG 1 tab(s) orally once a day; Duration: 30 day(s) Active Albuterol Sulfate (2.5 MG/3ML) 0.083% 3 ml as needed Inhalation every 6 hrs 02/15/2024 Not-Takin anjali Breztri Aerosphere 160-9-4.8 MCG/ACT 2 puffs Inhalation Twice a day 11/07/2023 Not-Taking Dicyclomine HCl 10 mg 1 capsule orally 4 times a day; Duration: 30 days Active Albuterol Sulfate HFA 108 (90 Base) MCG/ACT 1-2 puff(s) inhaled every 6 hours, prn 02/15/2023 Not-Taking Furosemide 40 MG 1 tab(s) orally once a day; Duration: 90 days Active Bisoprolol Fumarate 10 MG 1 tab(s) orall y Two times a day Active Ciprofloxacin-dexAMETHason e 0.3-0.1 % 4 drops into affected ear Otic Twice a day 10/01/2024 Not-Taking metFORMIN HCl ER 500 mg 1 tablet orally once a day; Duration: 90 days Active Cyclobenzaprine HCl 10 mg TAKE ONE TABLE T BY MOUTH THREE TIMES DAILY NEEDED MAY CAUSE DROWSINESS; Duration: 10 Active Immunizations Vaccine Route Administration Date Status Comme nts xFluzone Intradermal (18-64yrs)-trivalent ID Intradermal 09/15/2014 Administered COVID 19 Pfizer Unknown 01/13/2021 Administered COVID 19 Pfizer Unknown 02/03/2021 Administered COVID 19 Pfizer Unknown 08/05/2021 Administered Hepatitis A (adult) IM Intramuscular 05/09/2019 Administer ed Hepatitis A (adult) IM Intramuscular 11/05/2018 Administer ed Shingrix IM Intramuscular 05/09/2019 Administered Shingrix IM Intramuscular 11/05/2018 Administered Tetanus Tdap-Adacel (over 7yrs) IM Intramuscular 06/15/2006 Administered xAdministration of injection IM Intramuscular 09/12/2017 Administered xFlu shot-36 months and older IM Intramuscular 08/27/2009 Administered Fluzone Quad (6months&older) IM Intramuscular 11/07/2023 Administered PNEUMOVAX 23 VACCINE IM Intramuscular 11/07/2023 Administe red Problems Problem Type SNOMED Code ICD Code Onset Dates Problem Status W/U Status Risk Notes Problem Gastroesophageal reflux disease (293941033) GERD (gastroesophageal reflux disease) (K21.9) Active confirmed Problem Hypertension (44954552) HTN (hypertension) (I10) Active confirmed Problem Anxiety disorder (174008834) Anxiety disorder (F41.9) Active confirmed Problem Otitis externa (7770543) Otitis externa (H60.90) Active confirmed Problem Seasonal allergy (319392957) Seasonal allergies (J30.2) Active confirmed Problem Increased creatine kinase level (440232252) Elevated CPK (R74.8) Active confirmed Problem BMI 30+ - obesity (697649633) BMI 32.0-32.9,adult (Z68.32) Active confirmed Problem Primary generalised osteoarthritis (335395304) 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) Active confirmed Problem Generalized anxiety disorder (00980018) Generalized anxiety disorder (F41.1) Active confirmed Problem Mixed hyperlipidemia (422990909) Mixed hyperlipidemia (E78.2) Active confirmed Problem Degeneration of cervical intervertebral disc (16349325) Degenerative disc disease, cervical (M50.30) Active confirmed Problem Chronic pain (70600849) Other chronic pain (G89.29) Active confirmed Problem Body mass index 30.00 to 34.99 (242882668350857) BMI 34.0-34.9,adult (Z68.34) Active confirmed Problem Cervical spondylosis without myelopathy (574931730) Osteoarthritis of spine with radiculopathy, cervical region (M47.22) Active confirmed Problem Dyslipidemia (843254100) Dyslipidemia (E78.5) Active confirmed Problem Solitary pulmonary nodule (622906619) Pulmonary nodule seen on imaging study (R91.1) Active confirmed Problem Localized, primary osteoarthritis of the shoulder region (674023218) 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) Active confirmed Problem Full thickness rotator cuff tear (820404505) Complete tear of right rotator cuff (M75.121) Active confirmed Problem Acute pancreatitis (190460727) Acute pancreatitis, unspecified complication status, unspecified pancreatitis type (K85.90) Active confirmed Problem Statin not tolerated (005883109) Statin intolerance (Z78.9) Active confirmed Vital Signs Heart Rate 80 /min 05/01/2025 Blood pressure diastolic 80 mm Hg 05/01/2025 Height 68.50 in 05/01/2025 Blood pressure systolic 126 mm Hg 05/01/2025 Weight 218.0 lbs 05/01/2025 BMI 32.66 kg/m2 05/01/2025 Encounters Encounter Location Date Provider Diagnosis [facility] [address] [place] [id number] 10/01/2024 R Panfilo Aguilera Otitis externa H60.9 0 [facility] [address] [facility] [address] [place], [place] [id number] 02/25/2025 R Panfilo Ale Paronychia L03.019 ; Anxiety disorder F41.9 and HTN (hypertension) I10 [facility] [address] [place], [place] [id number] 05/01/2025 R Panfilo Ale Adult general medica l examination Z00.00 ; HTN (hypertension) I10 ; Dyslipidemia E78.5 ; Statin intolerance Z78.9 ; Hyperglycemia R73.9 ; Screening for prostate cancer Z12.5 ; GERD (gastroesophageal reflux disease) K21.9 ; Generalized anxiety disorder F41.1 ; Primary generalized (osteo)arthritis M15.0 ; 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 D48.5 ; Anxiety disorder F41.9 and BMI 32.0-32.9,adult Z68.32 [facility] [address] [facility] [address] [place], [place] [id number] 10/04/2024 R Panfilo Ale Osteoarthritis of sp ine with radiculopathy, cervical region M47.22 [facility] [address] [place], [place] [id number] 10/09/2024 R Panfilo Ale [facility] [address] [place], [place] [id number] 10/30/2024 R Panfilo Ale [facility] [address] [facility] [address] [place], [place] [id number] 04/01/2025 R Panfilo Ale [facility] [address] [place], [place] [id number] 04/17/2025 [place] Osteoarthritis of sp ine with radiculopathy, cervical region M47.22 [facility] [address] [facility] [address] [place], [place] [id number] 05/03/2025 R Panfilo Ale [facility] [address] [facility] [address] [place] [id number] 05/13/2025 R Panfilo Ale [facility] [address] [facility] [address] [place], [place] [id number] 06/26/2025 Enriqueta Aguilera Primary generalized (osteo)arthritis M15.0 [facility] [address] [place] [id number] 08/11/2025 Enriqueta Aguilera Primary generalized (osteo)arthritis M15.0 Assessments Encounter Date Diagnosis (ICD Code) Assessment Notes Treatment Notes Treatment Clinical Notes Section Notes 10/01/2024 Otitis externa (ICD-10 - H60.90) 10/04/2024 Osteoarthritis of spine with radiculopathy, cervical region (ICD-10 - M47.22) 02/25/2025 Anxiety disorder (ICD-10 - F41.9) 02/25/2025 Paronychia (ICD-10 - L03.019) Continue peroxide soaks 04/17/2025 Osteoarthritis of spine with radiculopathy, cervical region (ICD-10 - M47.22) 05/01/2025 HTN (hypertension) (ICD-10 - I10) 05/01/2025 Adult general medical examination (ICD-10 - Z00.00) Patient instructed to return to office Annually for Annual Wellness Visits to include annual screenings of Pain assessment, Functional Ability assessment, Cognitive Ability assessment, Fall Risk assessment, Depression screening and Bladder control screening. 06/26/2025 Primary generalized (osteo)arthritis (ICD-10 - M15.0) 08/11/2025 Primary generalized (osteo)arthritis (ICD-10 - M15.0) 05/01/2025 Dyslipidemia (ICD-10 - E78.5) 02/25/2025 HTN (hypertension) (ICD-10 - I10) 05/01/2025 Statin intolerance (ICD-10 - Z78.9) 05/01/2025 [...] 32.0-32.9,adult (ICD-10 - Z68.32) Plan Of Treatment No Information Insurance Providers Payer Name Payer Address Payer Phone Subscriber Number Group Number Insured Name Patient Relationship to Insured Coverage Start Date Coverage End Date [employer] (MEDICAR E) [address] [address] [place] [address] [id number] LOBITO CHAKRABORTY Self - patient is the insured Medications Administered Medication Instructions Date of Administration Dosage Notes Dexamethasone 06/15/2006 1 mL Dexamethasone 02/25/2013 1 mL Dexamethasone 11/27/2014 1 mL Dexamethasone 10/19/2015 1 mL Dexamethasone 02/26/2019 1 mL Dexamethasone 01/26/2023 1 mL Dexamethasone 02/08/2024 1 mL Dexamethasone 12/09/2013 1 mL Dexamethasone 11/25/2013 1 mL Dexamethasone 02/15/2013 1 mL Dexamethasone 11/25/2010 1 mL Depo- Medrol 40 mg/ml 09/13/2022 1.5 mL Dexamethasone 02/18/2019 1 mL Dexamethasone 10/26/2018 1 mL Dexamethasone 08/01/2017 1 mL Dexamethasone 10/13/2015 1 mL Dexamethasone 07/20/2015 1 mL Dexamethasone 06/26/2007 1 mL Depo- Medrol 40 mg/ml 04/09/2022 1.5 mL Dexamethasone 11/21/2019 1 mL Medical (General) History Medical History History ICD Code Hyperglycemic Hypertension Hyperlipidemia Varicose Veins GERD LT Rotator Cuff Tear Presbycusis - Hearing Aides Declines all vaccines - 06/2020 Pancreatic Insufficiency Surgical History Surgery Date(Month/Year) Appendectomy Bilateral Rotator Cuff Repair Heart Cath-[facility] 01/24/2014 Cholecystectomy 06/2014 LT Shoulder Replacement- [facility] Dr Armenta 09/22/2016 LT Shoulder Injection due to Past Surger y 01/2017 RT Shoulder Rotator Cuff, Bicep, Tendon, Clavicla Repair 12/2017 Heart Cath- Dr Matias 03/20/2020 C-scope/ [place]/ polyp x 1; sigmoid div erticulosis; 5 yr f/u 11/2022 Hospitalization History Reason Date(Month/Year) Pancreatitis- [facility] 03/22-09/2021 Back Injury- [facility] ER 12/24/2018 LT Shoulder Abscess- [facility] Center 02/01/2017 RT Knee Swollen- [facility] ER 07/16/2011 Fever- [facility] ER 06/2011 [facility] ER 06/14/2011
--- OUTSIDE RECORDS SUMMARY | 2025-09-04 08:30 | XMS_ITS | Clinical Summary ---
Author Organization [facility] Address [address] [place] [address] Care Team Providers Care Gas Meter Installer Name Role Phone Brody Aguilera MD Primary [...] pulse or is breathing): Full Care Teams Gas Meter Installer Relationship Specialty Start Date End Date Brody Aguilera MD [facility] [facility] [address] [facility] [address] [place] [address] PCP - General Family Medicine 01/13/21
--- OUTSIDE RECORDS SUMMARY | 2025-09-04 08:30 | XMS_ITS | Encounter Summary ---
Author Organization [facility] Address [address] [place] [address] Care Team Providers Care Director Of In Service Education Name Role Phone Brody Aguilera MD Primary Care Provider [phone] Brody Aguilera MD Unavailable [phone] Reason for Referral * Consultation (Routine) - Authorized Specialty Diagnoses / Procedures Referred By Contact Referred To Contact Vascular Surgery / Comprehensive [facility] Diagnoses Edema of both lower extremities Too Don MD 12[address] [facility] [address] [place] [address] Phone: tel:[phone] fax:[phone] [facility] [address] [facility] 5th Floor [address] [place] [address] Phone: tel: fax: Referral ID Status Reason Start Date Expiration Date Visits Requested Visits Authorized [id number] Authorized Specialty Services Required 08/26/2025 02/25/2027 1 1 Encounter Details Date Type Department Care Team (Late st Contact Info) Description 08/26/2025 Orders Only [facility] [place] [address] [place] [address] Svitlana Nix, RN CH - 6 [facility] Edema of both lower extremities (Primary Dx) Social History Tobacco Use Types Packs/Day Years Used Date Smoking Tobacco: Former Smokeless Tobacco: Never Alcohol Use Standard Drinks/Week Comments Never 0 [...] as of this encounter Plan of Treatment Scheduled Referrals Name Type Priority Associated Diagnoses Orde r Schedule Ambulatory referral to Vascular Surgery Outpatient Referral Routine Edema of both lower extremities Expected: 08/26/2025 (Approximate), Expires: 02/24/2027 documented as of this encounter Visit Diagnoses Diagnosis Edema of both lower extremities- Primary documented in this encounter Additional Health Concerns Assessment Noted Time A fall risk assessment has been complete d for the patient 07/18/2024 3:04 PM EDT A Body Mass Index follow-up plan has been documented for the patient 07/18/2024 4:24 PM EDT documented as of this encounter Care Teams Director Of In Service Education Relationship Specialty Start Date End Date Brody Aguilera MD [address] [place] [address] PCP - General 09/20/22 Brody Aguilera MD [address] [place] [address] [place] [address] 09/20/22 documented as of this encounter
== END 2025-09-04 23:59 | disposition home or self-care (01) ==
LOC: RAD 08:17
PROVIDERS: PCP Family Medicine; Visit Provider Orthopaedic Surgery
DX: M17.11 Unilateral primary osteoarthritis, right knee (principal)
CPT/HCPCS: 73562

== ENCOUNTER 2025-09-25 13:45 | Outpatient (CLI) | payer MEDICARE, SELFPAY ==
--- OUTSIDE RECORDS SUMMARY | 2025-09-25 13:52 | XMS_ITS ---
Care Plan - [facility], [facility] Created on: September 25, 2025 Douglas Sullivan .0 : 1960 Sex: Male Author Organization [facility] Address [address] [place] [address] Phone Care Team Providers Care Gasoline Service Attendant Name Role Phone Jarett MONACO, Kevin Lopez [facility] [phone]
--- OUTSIDE RECORDS SUMMARY | 2025-09-25 13:52 | XMS_ITS | Encounter Summary ---
Author Organization Healthcare Address [address] [place] [address] Care Team Providers Care Vice President Of Consulting Services Name Role Phone Brody Aguilera MD Primary Care Provider [phone] Brody Aguilera MD Primary Care Provider [phone]- [phone] Brody Aguilera MD Unavailable [phone] Encounter Details Date Type Department Care Team (Late st Contact Info) Description 05/05/2021 Orders Only External Location [address] [place] [address] Azul Braswell, HOMICIDE DETECTIVE [address] [place] [address] Social History Tobacco Use Types Packs/Day Years [...] 05/05/2021 9:39 AM EDT us Azul Braswell HOMICIDE DETECTIVE IMG MRI PROCEDURES Final R esult documented in this encounter Visit Diagnoses Not on filedocumented in this encounter Care Teams Vice President Of Consulting Services Relationship Specialty Start Date End Date Brody Aguilera MD [address] [place] [address] PCP - General 04/02/21 09/19/22 Brody Aguilera MD [address] [place] [address] PCP - General 09/20/22 Brody Aguilera MD [address] [place] [address] 09/20/22 documented as of this encounter
--- OUTSIDE RECORDS SUMMARY | 2025-09-25 13:52 | XMS_ITS | Clinical Summary ---
Author Organization [facility] Address [address] [place] [address] Care Team Providers Care Television Agent Name Role Phone Brody Aguilera MD Primary [...] pulse or is breathing): Full Care Teams Television Agent Relationship Specialty Start Date End Date Brody Aguilera MD [address] [facility] [address] [facility] [address] [place] [address] PCP - General Family Medicine 01/13/21
--- OUTSIDE RECORDS SUMMARY | 2025-09-25 13:52 | XMS_ITS | Encounter Summary ---
Author Organization [facility] Address [address] [place] [address] Care Team Providers Care Senior Benefits Specialist Name Role Phone Brody Aguilera MD Primary Care Provider [phone] Brody Aguilera MD Unavailable Reason for Referral * Consultation (Routine) - Authorized Specialty Diagnoses / Procedures Referred By Contact Referred To Contact Vascular Surgery / Comprehensive [facility] Diagnoses Edema of both lower extremities Too Don MD [address] [facility] [address] [place] [address] Phone: tel:[phone] fax:[phone] [facility] [address] [facility] 5th Floor [address] [place] [address] Phone: tel: fax: Referral ID Status Reason Start Date Expiration Date Visits Requested Visits Authorized [id number] Authorized Specialty Services Required 08/26/2025 02/25/2027 1 1 Encounter Details Date Type Department Care Team (Late st Contact Info) Description 08/26/2025 Orders Only [facility] [place] [address] [place] [address] Svitlana Nix, RN CH - 6 [facility] Edema of both lower extremities (Primary Dx) [...] documented as of this encounter Care Teams Senior Benefits Specialist Relationship Specialty Start Date End Date Brody Aguilera MD [address] [place] [address] PCP - General 09/20/22 Brody Aguilera MD [address] [place] [address] [place] [address] 09/20/22 documented as of this encounter
--- OUTSIDE RECORDS SUMMARY | 2025-09-25 13:52 | XMS_ITS | Clinical Summary ---
Author Organization [facility] Address [address] [place] [address] Care Team Providers Care Talend Etl Developer Name Role Phone Unavailable Primary Care Provider [...] of 2) 2010 INFLUENZA VACCINE (#1) 2025 CT Colonography Completed HEP A VACCINE Aged Out No longer elig ible based on patient's age to complete this topic HIB VACCINE Aged Out No longer eligi ble based on patient's age to complete this topic ROTOVIRUS VACCINE Aged Out No longer eligible based on patient's age to complete this topic Insurance [facility]
--- OUTSIDE RECORDS SUMMARY | 2025-09-25 13:52 | XMS_ITS | Encounter Summary ---
Author Organization Healthcare Address [address] [place] [address] Care Team Providers Care Sales And Merchandising Representative Name Role Phone Brody Aguilera MD Primary Care Provider [phone] Brody Aguilera MD Primary Care Provider [phone]- [phone] Brody Aguilera MD Unavailable [phone] Encounter Details Date Type Department Care Team (Late st Contact Info) Description 04/22/2021 Orders Only External Location [address] [place] [address] Provider, External Social History Tobacco Use Types [...] on filedocumented in this encounter Care Teams Sales And Merchandising Representative Relationship Specialty Start Date End Date Brody Aguilera MD [address] [place] [address] PCP - General 04/02/21 09/19/22 Brody Aguilera MD [address] [place] [address] PCP - General 09/20/22 Brody Aguilera MD [address] [place] [address] 09/20/22 documented as of this encounter
--- OUTSIDE RECORDS SUMMARY | 2025-09-25 13:52 | XMS_ITS | Encounter Summary ---
Author Organization [facility] Address [address] [place] [address] Care Team Providers Care Kitchen Assistant Name Role Phone Brody Aguilera MD Primary Care Provider [phone] Brody Aguilera MD Primary Care Provider +- [phone] Brody Aguilera MD Unavailable [phone] Encounter Details Date Type Department Care Team (Late st Contact Info) Description 04/22/2021 Orders Only External Location [address] [place] [address] Provider, External Social History Tobacco Use Types [...] on filedocumented in this encounter Care Teams Kitchen Assistant Relationship Specialty Start Date End Date Brody Aguilera MD [address] [place] [address] PCP - General 04/02/21 09/19/22 Brody Aguilera MD [address] [place] [address] PCP - General 09/20/22 Brody Aguilera MD [address] [place] [address] 09/20/22 documented as of this encounter
--- OUTSIDE RECORDS SUMMARY | 2025-09-25 13:52 | XMS_ITS | Clinical Summary ---
Author Organization [facility] Address [address] [place] [address] Care Team Providers Care Database Support Name Role Phone Brody Aguilera MD Primary Care Provider [phone] Brody Aguilera MD Unavailable [phone] Allergies Active Allergy Reactions Criticality Noted Date [...] (01/24/2023): Added automatically from request for surgery [id number] HTN (hypertension) 10/22/2021 Asthma 10/22/2021 Presbyacusis 10/22/2021 Resolved Problems Problem Noted Date Diagnosed Date Resolved Date Soft tissue mass 01/25/2023 08/10/2025 Chronic left shoulder pain 01/25/2023 0 08/10/2025 Encounters Date Type Department Care Team Description 08/26/2025 Orders Only [facility] [address] [place] [address] Svitlana Nix RN Edema of both lower [...] 12/21/2023 [facility]-Abdominal Aortic Aneurysm (AAA) Screening 2025 [id number] Vaccine ( season) 2025 11/25/2023, 10/04/2022, 03/31/2022, [...] this topic Insurance [employer] Care Teams Database Support Relationship Specialty Start Date End Date Brody Aguilera MD [address] [place] [id number] PCP - General 09/20/22 Brody Aguilera MD [address] [place] [address] 09/20/22
--- OUTSIDE RECORDS SUMMARY | 2025-09-25 13:52 | XMS_ITS ---
Author Organization [facility] Address [address] [place] [address] Phone Care Team Providers Care [employer] Professional Name Role Phone Jarett MONACO, Kevin Lopez [facility] [phone] Plan of Treatment No Plan of Treatment Recorded Assessments Includes: Assessments for all patient encounters No Assessments Recorded Medical Equipment - Implanted Devices Includes: Current and historical Devices No Medical Equipment Recorded Medications Administered Includes: Administered Medications in patient's chart No Administered Medications Recorded Results Includes: Results from 09/25/2024 through 09/25/2025 No Results Recorded For Specified Dates History of Present Illness History of Present Illness not supported for this document type No History of Present Illness Recorded Social History No Social History Recorded - Smoking Status Unknown Medical History Includes: Medical History in patient's chart No Medical History Recorded Family History Includes: Family History in patient's chart No Family History Recorded Review of Systems Review of Systems not supported for this document type No Review of Systems Recorded Mental Status No Mental Status Recorded Functional Status No Functional Status Recorded Physical Exam Physical Exam not supported for this document type No Physical Exam Recorded Insurance Includes: Active Insurance Policies Plan Name Member ID Group # Subscriber Relationship Effect benedicto Dates 1 - [employer] [id number] Douglas Sullivan Self Clinical Notes Includes: Signed Clinical Notes starting from 11/03/2022 No Clinical Notes Recorded
[2025-09-25 14:32] LABS: Hematocrit 45.5 % (42.0-52.0); Hemoglobin 15.3 g/dL (14.1-18.0); Immature Granulocytes % 0.5 %; Mean Corpuscular HGB Conc 33.6 g/dL (31.8-35.4); Mean Corpuscular Hemoglobin 27.4 pg (27.0-31.2); Mean Corpuscular Volume 81.4 fl (80-94); Nucleated Red Blood Cells % 0 %; Platelet Count 265 K/mm3 (142-424); Red Blood Count 5.59 M/mm3 (4.60-6.20); Red Cell Distribution Width-SD 38.1 fL; White Blood Count 7.9 K/mm3 (4.8-10.8)
[2025-09-25 15:13] LABS: Alanine Aminotransferase 42 U/L (12-78); Albumin Level 4.4 g/dl (3.5-5.0); Aspartate Amino Transferase 39 U/L (17-59); Blood Urea Nitrogen 27 mg/dl (9-20); Calcium 9.3 mg/dl (8.4-10.2); Carbon Dioxide 25 mmol/L (22.0-30.0); Chloride 101 mmol/L (98-107); Cholesterol 129 mg/dl (140-200); Creatinine,Serum 1.00 mg/dl (0.66-1.25); Estimated Glomerular Filt Rate 75 ml/min (>60); GFR (African American) 91 ML/MIN (>60); Glucose 103 mg/dl (74-100); Magnesium 1.4 mg/dl (1.6-2.3); Sodium 135 mmol/L (136-145); Total Protein,Serum 7.2 g/dl (6.3-8.2); Triglycerides 324 mg/dl (30-150)
[2025-09-25 15:25] LABS: Alkaline Phosphatase 97 U/L (38-126); Anion Gap 13.5 mEq/L (5-15); HDL Cholesterol 30 mg/dl (40-60); Potassium 4.5 mmoL/L (3.5-5.1)
[2025-09-25 15:29] LABS: Free T4 (Free Thyroxine) 1.46 ng/dl (0.78-2.19)
[2025-09-25 15:56] LABS: Thyroid Stimulating Hormone 0.57 uIU/mL (0.465-4.68)
[2025-09-25 17:37] LABS: Hemoglobin A1C 5.4 % (4.0-6.0)
[2025-09-25 18:13] LABS: Bilirubin,Direct 0.3 mg/dl (0.0-0.4); Bilirubin,Indirect 0.4 mg/dL (0.0-0.9)
[2025-09-25 18:14] LABS: Bilirubin,Total 0.7 mg/dl (0.2-1.3); Bilirubin,Unconjugated 0.4 mg/dL (0.0-1.1)
== END 2025-09-25 23:59 | disposition home or self-care (01) ==
PROVIDERS: PCP Family Medicine; Visit Provider Internal Medicine
DX: I11.9 Hypertensive heart disease without heart failure (principal); I25.10 Atherosclerotic heart disease of native coronary artery without angina pectoris; E78.5 Hyperlipidemia, unspecified
CPT/HCPCS: 36415; 80048; 80061; 80076; 83036; 83735; 84439; 84443; 85025